=== PATIENT | male | born 1995 | race Two or more races ===

== ENCOUNTER → 2020-09-23 07:39 | Outpatient (BNVA) | payer OTHER, SELFPAY | PROVIDERS: PCP Internal Medicine; Visit Provider Nurse Practitioner Gerontology | DX: E10.65 Type 1 diabetes mellitus with hyperglycemia (principal) | CPT/HCPCS: 82947; 99212 ==

== ENCOUNTER 2020-11-23 15:33 | Inpatient (IN) | payer OTHER, SELFPAY ==
--- NOTE | ~2020-11-23 | US_ITS ---
EXAMINATION: US ABDOMEN COMPLETE CLINICAL INFORMATION: Severe transaminitis. COMPARISON: None. TECHNIQUE: Real-time imaging of the abdominal viscera. FINDINGS: PANCREAS: The pancreas is partially obscured. ABDOMINAL AORTA: The proximal, mid, and distal segments are normal in caliber. INFERIOR VENA CAVA: Visualized portions are normal. LIVER: The liver is normal in size. The liver contour is normal. Parenchymal echogenicity is normal. There is a hyperechoic lesion in the right hepatic lobe adjacent to the kidney measuring 1.1 x 1.3 x 1.2 cm, most likely hemangioma. No additional lesions seen. There is no intrahepatic biliary duct dilatation seen. GALLBLADDER: Normal. The gallbladder is physiologically distended without evidence of stones, sludge, polyps, wall thickening or pericholecystic fluid. COMMON BILE DUCT: Normal in caliber measuring 0.3 cm in diameter. RIGHT KIDNEY: Normal. No hydronephrosis. No renal calculi or focal parenchymal lesions. The kidney measures 11.6 cm in maximum dimension. LEFT KIDNEY: Normal. No hydronephrosis. No renal calculi or focal parenchymal lesions. The kidney measures 11.8 cm in maximum dimension. SPLEEN: Normal. The spleen measures 12.1 cm in maximum dimension. FREE FLUID: None. US/US abdomen complete IMPRESSION: Right hepatic lobe hemangioma posterior segment. The rest of the abdominal ultrasound is unremarkable.
--- NOTE | ~2020-11-23 | CT_ITS ---
EXAMINATION: CT CHEST, ABDOMEN AND PELVIS WITHOUT CONTRAST CLINICAL INFORMATION: Reason for Exam sob COMPARISON: No pertinent prior studies are available for comparison. TECHNIQUE: Multidetector volumetric imaging was performed from the thoracic inlet through the pubic symphysis without IV contrast. Sagittal and coronal reformatted images were obtained on the technologist's workstation. This CT examination was performed using dose optimization techniques as appropriate, variously including the following: *Automated exposure control *Adjustment of mA and/or kV according to patient size (this includes techniques or standardized protocols for targeted exams where dose is matched to indication/reason for exam; i.e. extremities or head) *Use of iterative reconstruction technique DLP: 637 mGy-cm FINDINGS: CHEST: Lung: The lungs are clear without focal opacity or nodule. Mediastinum: The mediastinum is normal. The central vascular structures are unremarkable. No hilar or mediastinal lymphadenopathy. A small normal sized right anterior preparacardiac lymph node is present. Pericardium/Pleura: No significant effusion. No pleural mass or thickening. Chest Wall/Axilla: Unremarkable ABDOMEN/PELVIS: Peritoneal Space: No significant free air or free fluid identified. Liver, Gallbladder, Biliary Tree: The liver is mildly enlarged measuring 19.7 cm in greatest length normal shape and attenuation. No focal hepatic lesion or biliary ductal dilatation is present. The gallbladder is unremarkable with no evidence of radiopaque gallstones, gallbladder wall thickening, or obvious pericholecystic inflammatory changes. Pancreas: Unremarkable Spleen: Unremarkable Adrenal Glands: Unremarkable Kidneys and Ureters: The kidneys are normal in size, shape, and attenuation. No hydronephrosis, hydroureter, or calculi seen. No perinephric stranding. Bladder: Empty and not well evaluated Gastrointestinal Tract: The small and large bowel are unremarkable. The appendix is unremarkable. Abdominal Wall: No significant hernia is appreciated. Lymph Nodes: No lymphadenopathy. Vascular: The aorta appears normal.. The IVC appears unremarkable. PELVIC VISCERA: Unremarkable OSSEUS STRUCTURES: Unremarkable. No bony destructive lesions are seen. CT/CT abdomen pelvis wo con IMPRESSION: Mild hepatomegaly is present with the liver measuring 19.7 cm in greatest AP dimension but no other significant abnormality is seen
[2020-11-23 17:38] VITALS: BP 137/80; PULSE 103; RESP 16; TEMP 38.4; O2SAT 99; BMI 24.4
[2020-11-23 17:48] LABS: Glucose, Whole Blood 125 mg/dL (60-115)
--- NOTE | 2020-11-23 18:45 | ED.GENADULT ---
HPI - General Adult General Chief complaint: General Medical Stated complaint: abnormal labs Time Seen by Provider: 11/23/20 18:10 Source: patient Mode of arrival: ambulatory Limitations: no limitations History of Present Illness HPI narrative: 25-year-old male with past medical history of diabetes type 1 with insulin pump, and asthma presents from [facility] for abnormal lab values. Patient reports that his ketone levels are high, and that his urine is brown. He has been sick for approximately a week with fevers, chills, cough, shortness breath, abdominal pain, has been tested negative for COVID-19 twice, saw his primary care physician twice and presented to [facility] today because of severe muscle pain and jaundice skin. He does not drink alcohol, does not use illicit drugs, and states that he has been using Tylenol 1000 mg approximately 6 times a day for the past week. At this time he reports headache, weakness, chest pressure, cough, right upper quadrant pain, muscle aches, fevers, and fatigue. He denies palpitations, edema, dysuria, hematuria, diarrhea, constipation, hematochezia, melena, blood borne pathogen exposure, loss of balance, or altered mental status. Onset (ago): week(s) (1) Location: head, chest and abdomen Severity: severe Severity scale (1-10): 9 Quality: aching and constant Pain Consistency: constant Relieving factors: none Exacerbating factors: movement Associated symptoms: chest pain, cough, diaphoresis, fever/chills, headaches, loss of appetite, malaise, nausea/vomiting and other (jaundice) Treatments prior to arrival: other (Acetaminophen, [facility]) Related Data Home Medications Medication Instructions Recorded Confirmed insulin lispro [Humalog U-100 160 unit SUBCUT DAILY 11/23/20 11/23/20 Insulin] Previous Rx's Medication Instructions Recorded blood-glucose sensor #3 ea 09/17/20 Allergies Allergy/AdvReac Type Severity Reaction Status Date / Time No Known Allergies Allergy Verified 09/23/20 08:06 [No Known Allergies*] Review of Systems Constitutional: Comments: Constitutional: positive Fever, positive Chills, positive fatigue, positive Malaise ENT/Mouth: No sore throat, positive runny nose Eyes: Positive scleral icterus, No Discharge, no eye pain Cardiovascular: Positive Chest Pain, positive SOB Respiratory: Positive Cough, No Sputum, positive Wheezing, No Smoke Exposure, No Dyspnea Gastrointestinal: No Nausea, No Vomiting, No Diarrhea Genitourinary: Positive dark colored urine, no irregular bleeding, No Dysuria, No Urinary Frequency, No Hematuria, No Urinary Incontinence, No Urgency, No Flank Pain, Musculoskeletal: positive Myalgia Skin: Positive jaundice, No rash Neuro: Positive Headache [facility] Past Medical History Attestation statement: The following information was validated with the patient. Source: old records reviewed Medical History Asthma Diabetes mellitus type 1, uncontrolled Surgical History No history of previous surgery Family History Family History Father Seizures Hypertension Diabetes CVD (cardiovascular disease) Mother Breast cancer Social History Social History Household Members: None Housing: Apartment Smoking Status: Never smoker Use of substances other than those prescribed or required for medical reasons: Yes Substance Use Type: Marijuana Substance Use Frequency: Occasionally Advance Directives: No Advance Directives Information Provided: Yes Physical Exam Vital Signs: Vital Signs: Last Vital Signs Temp 99.6 F 11/23/20 19:43 Pulse 117 H 11/23/20 21:32 Resp 14 11/23/20 21:32 BP 120/72 11/23/20 21:32 Pulse Ox 99 11/23/20 21:32 Body Mass Index 24.4 Appearance: Alert. Oriented X3. No acute distress. Head: Normal external exam. Normocephalic. Atraumatic. No Muñoz signs noted. No raccoon eyes noted Eyes: PERRLA. EOMI. Conjunctiva and sclera normal. Eyelids normal. ENT: TM's Normal. Pharynx normal. Uvula midline. Moist mucous membranes. No trismus noted. No drooling noted. No muffled voice noted. Neck: Normal inspection. Neck supple. No adenopathy. Thyroid Normal. No meningeal signs. No neck mass noted. CVS: Normal heart rate and rhythm. Heart sound normal. No murmurs noted. Pulses equal to all extremities. Respiratory: No respiratory distress. Painless inspiration. Breath sounds normal. No wheezes/rales/rhonchi noted. Chest nontender. No accessory muscle usage noted or decreased air movement noted. Abdomen: Soft and nontender. Bowel sounds normal in all 4 quadrants. No distention noted. No organomegaly noted. No visible injury noted. Back: No CVA tenderness. Full range of motion noted. Skin: Skin warm and dry. Normal skin color. Normal skin turgor. No rashes/lesions/lacerations noted. Extremities: No lower extremity edema. Extremities exhibit normal range of motion. Extremities nontender. Neuro: cranial nerves 2-12 intact, no focal neural deficits, strength 5/5 to all extremities, No motor deficit. No sensory deficit. Reflexes normal. Course Course Course Narrative: 25-year-old male with past medical history of diabetes type 1 with insulin pump, and asthma presents from [place] for abnormal lab values. Patient is jaundice, states to have been using an excessive amount of Tylenol for the past week, approximately 1 g every 4 hours every day since Tuesday. Highly concerning for liver failure, will order CBC, Chem 7, urinalysis, LFTs, COVID, order CT scan of the abdomen pelvis and chest. 7:[address] scan indicates hepatomegaly without any other acute findings. Labs still pending draw. Labs drawn at 7:49 p.m. 9:00 p.m. it is noted that patient has elevated white blood count at 18.9, urine positive for nitrites, will start sepsis protocol at this time. Patient has been resuscitated with 1 L of fluid, 2nd L of fluid ordered. To make 1860 mL of fluid at 30 milliliters/kilogram. Will order ceftriaxone for UTI. CT scan of the abdomen pelvis shows hepatitis. Will add on hepatitis panel at this time. Will discuss case with hospitalist. 9:08 p.m. discussion with hospitalist, plan of care is to admit for hepatitis and UTI. Plan discussed with patient he agrees with plan of care. Consultations Consultation #1: Berny Time: 21:08 Medical Decision Making MDM Narrative Medical decision making narrative: Tylenol toxicity, DKA, rhabdomyolysis Differential Diagnosis Differential Diagnosis: Influenza, hepatitis, COVID-19, cholecystitis, pancreatitis Medical Records Medical records reviewed: Yes I reviewed the patient's medical records. Lab Data Lab results reviewed: Yes I reviewed the patient's lab results. Result diagrams: 11/23/20:38 11/23/20 19:38 Labs: Lab Results 11/23/20 11/23/20 11/23/20 Range/Units 17:39 19:38 19:38 WBC 18.9 H (4.8-10.8) X10*3/uL RBC 4.64 (4.60-5.80) X10*6/uL Hgb 13.7 L (14.0-18.0) g/dl Hct 39.2 L (42-52) % MCV 84.5 (80-98) fL MCH 29.5 (27.0-33.0) pg MCHC 34.9 (31.0-36.0) g/dl RDW 12.6 (11.0-16.0) % Plt Count 205 (160-400) X10*3/uL MPV 11.2 (9.4-12.4) fL Immature Gran % (Auto) Cancelled Neut % (Auto) Cancelled Lymph % (Auto) Cancelled Mifflin % (Auto) Cancelled Eos % (Auto) Cancelled Baso % (Auto) Cancelled Lymph # (Auto) Cancelled Mifflin # (Auto) Cancelled Eos # (Auto) Cancelled Baso # (Auto) Cancelled Abs Immat Gran (auto) Cancelled Absolute Neuts (auto) Cancelled Absolute Nucleated RBC 0.000 (0.0-0.012) X10*3/uL Nucleated RBC % (auto) 0.0 (0.0-0.2) /100WBC Neutrophils % (Manual) 12 L (45-73) % Band Neutrophils % 7 H (3-5) % Lymphocytes % (Manual) 19 L (20-40) % Atypical Lymphs % (Man) 45 H (0-6) % Monocytes % (Manual) 15 H (2-11) % Basophils % (Manual) 2 H (0-1) % Abs Neuts (Manual) 3.6 (2.2-7.9) X10*3/uL Lymphocytes # (Manual) 3.6 (0.6-4.8) X10*3/uL Atyp Lymphs # (Manual) 8.5 x10*3/uL Monocytes # (Manual) 2.8 H (0.0-1.2) X10*3/uL Basophils # (Manual) 0.4 H (0.0-0.3) X10*3/uL Smudge Cells PRESENT Platelet Estimate NORMAL (NORMAL) Plt Morphology Comment NORMAL RBC Morphology NOTED Macrocytosis 1+ PT 12.5 (10.8-13.0) SEC INR 1.1 (0.9-1.1) APTT 39.4 H (24.1-38.0) SEC Sodium (135-145) mmol/L Potassium (3.3-5.1) mmol/L Chloride (96-108) mmol/L Carbon Dioxide (22-29) mmol/L Anion Gap (12-20) BUN (9-16) mg/dL Creatinine (0.5-1.4) mg/dL Estim Creat Clear Calc Estimated GFR POC Glucose 125 H (60-115) mg/dL Random Glucose (60-115) mg/dL Lactic Acid (0.5-2.0) mmol/L Calcium (8.4-10.2) mg/dL Ferritin (20-250) ng/mL Total Bilirubin (0.0-1.0) mg/dL Direct Bilirubin (0.0-0.5) mg/dL AST (5-37) U/L ALT (0-40) U/L Alkaline Phosphatase (39-117) U/L Ammonia (13-55) umol/L Lactate Dehydrogenase (118-273) U/L Total Creatine Kinase (38-174) U/L C-Reactive Protein (< or = 0.50) mg/dL Total Protein (6.5-8.0) g/dL Albumin (3.5-5.0) g/dL Lipase (8-78) U/L Procalcitonin ng/mL Urine Color Urine Appearance Urine pH (5.0-8.0) Ur Specific Aurora (1.005-1.025) Urine Protein (NEG-TRACE) MG/DL Urine Glucose (UA) (NEG) MG/DL Urine Ketones (NEG) MG/DL Urine Blood (NEG) Urine Nitrite (NEG) Ur Leukocyte Esterase (NEG) Urine RBC (0) /HPF Urine WBC (0-4) /HPF Ur Squamous Epith Cells /LPF Urine Bacteria /LPF Acetaminophen (<30) mcg/mL Acetone, Qual (Negative) Coronavirus (PCR) (Negative) Influenza Type A (PCR) (Negative) Influenza Type B (PCR) (Negative) RSV RNA Qual (PCR) (Negative) 11/23/20 11/23/20 11/23/20 Range/Units 19:38 19:38 19:38 WBC (4.8-10.8) X10*3/uL RBC (4.60-5.80) X10*6/uL Hgb (14.0-18.0) g/dl Hct (42-52) % MCV (80-98) fL MCH (27.0-33.0) pg MCHC (31.0-36.0) g/dl RDW (11.0-16.0) % Plt Count (160-400) X10*3/uL MPV (9.4-12.4) fL Immature Gran % (Auto) Neut % (Auto) Lymph % (Auto) Mifflin % (Auto) Eos % (Auto) Baso % (Auto) Lymph # (Auto) Mifflin # (Auto) Eos # (Auto) Baso # (Auto) Abs Immat Gran (auto) Absolute Neuts (auto) Absolute Nucleated RBC (0.0-0.012) X10*3/uL Nucleated RBC % (auto) (0.0-0.2) /100WBC Neutrophils % (Manual) (45-73) % Band Neutrophils % (3-5) % Lymphocytes % (Manual) (20-40) % Atypical Lymphs % (Man) (0-6) % Monocytes % (Manual) (2-11) % Basophils % (Manual) (0-1) % Abs Neuts (Manual) (2.2-7.9) X10*3/uL Lymphocytes # (Manual) (0.6-4.8) X10*3/uL Atyp Lymphs # (Manual) x10*3/uL Monocytes # (Manual) (0.0-1.2) X10*3/uL Basophils # (Manual) (0.0-0.3) X10*3/uL Smudge Cells Platelet Estimate (NORMAL) Plt Morphology Comment RBC Morphology Macrocytosis PT (10.8-13.0) SEC INR (0.9-1.1) APTT (24.1-38.0) SEC Sodium 134 L (135-145) mmol/L Potassium 4.5 (3.3-5.1) mmol/L Chloride 95 L (96-108) mmol/L Carbon Dioxide 27 (22-29) mmol/L Anion Gap 17 (12-20) BUN 8 L (9-16) mg/dL Creatinine 0.88 (0.5-1.4) mg/dL Estim Creat Clear Calc 104.1 Estimated GFR > 60 POC Glucose (60-115) mg/dL Random Glucose 126 H (60-115) mg/dL Lactic Acid 1.4 (0.5-2.0) mmol/L Calcium 8.8 (8.4-10.2) mg/dL Ferritin 5145 H (20-250) ng/mL Total Bilirubin 7.9 H (0.0-1.0) mg/dL Direct Bilirubin 4.8 H (0.0-0.5) mg/dL AST 597 H (5-37) U/L ALT 805 H (0-40) U/L Alkaline Phosphatase 401 H (39-117) U/L Ammonia (13-55) umol/L Lactate Dehydrogenase 1459 H (118-273) U/L Total Creatine Kinase 67 (38-174) U/L C-Reactive Protein 2.75 H (< or = 0.50) mg/dL Total Protein 7.6 (6.5-8.0) g/dL Albumin 4.0 (3.5-5.0) g/dL Lipase 10 (8-78) U/L Procalcitonin ng/mL Urine Color Urine Appearance Urine pH (5.0-8.0) Ur Specific Aurora (1.005-1.025) Urine Protein (NEG-TRACE) MG/DL Urine Glucose (UA) (NEG) MG/DL Urine Ketones (NEG) MG/DL Urine Blood (NEG) Urine Nitrite (NEG) Ur Leukocyte Esterase (NEG) Urine RBC (0) /HPF Urine WBC (0-4) /HPF Ur Squamous Epith Cells /LPF Urine Bacteria /LPF Acetaminophen < 1 (<30) mcg/mL Acetone, Qual Negative (Negative) Coronavirus (PCR) (Negative) Influenza Type A (PCR) (Negative) Influenza Type B (PCR) (Negative) RSV RNA Qual (PCR) (Negative) 11/23/20 11/23/20 11/23/20 Range/Units 19:38 19:38 19:38 WBC (4.8-10.8) X10*3/uL RBC (4.60-5.80) X10*6/uL Hgb (14.0-18.0) g/dl Hct (42-52) % MCV (80-98) fL MCH (27.0-33.0) pg MCHC (31.0-36.0) g/dl RDW (11.0-16.0) % Plt Count (160-400) X10*3/uL MPV (9.4-12.4) fL Immature Gran % (Auto) Neut % (Auto) Lymph % (Auto) Mifflin % (Auto) Eos % (Auto) Baso % (Auto) Lymph # (Auto) Mifflin # (Auto) Eos # (Auto) Baso # (Auto) Abs Immat Gran (auto) Absolute Neuts (auto) Absolute Nucleated RBC (0.0-0.012) X10*3/uL Nucleated RBC % (auto) (0.0-0.2) /100WBC Neutrophils % (Manual) (45-73) % Band Neutrophils % (3-5) % Lymphocytes % (Manual) (20-40) % Atypical Lymphs % (Man) (0-6) % Monocytes % (Manual) (2-11) % Basophils % (Manual) (0-1) % Abs Neuts (Manual) (2.2-7.9) X10*3/uL Lymphocytes # (Manual) (0.6-4.8) X10*3/uL Atyp Lymphs # (Manual) x10*3/uL Monocytes # (Manual) (0.0-1.2) X10*3/uL Basophils # (Manual) (0.0-0.3) X10*3/uL Smudge Cells Platelet Estimate (NORMAL) Plt Morphology Comment RBC Morphology Macrocytosis PT (10.8-13.0) SEC INR (0.9-1.1) APTT (24.1-38.0) SEC Sodium (135-145) mmol/L Potassium (3.3-5.1) mmol/L Chloride (96-108) mmol/L Carbon Dioxide (22-29) mmol/L Anion Gap (12-20) BUN (9-16) mg/dL Creatinine (0.5-1.4) mg/dL Estim Creat Clear Calc Estimated GFR POC Glucose (60-115) mg/dL Random Glucose (60-115) mg/dL Lactic Acid (0.5-2.0) mmol/L Calcium (8.4-10.2) mg/dL Ferritin (20-250) ng/mL Total Bilirubin (0.0-1.0) mg/dL Direct Bilirubin (0.0-0.5) mg/dL AST (5-37) U/L ALT (0-40) U/L Alkaline Phosphatase (39-117) U/L Ammonia 39 (13-55) umol/L Lactate Dehydrogenase (118-273) U/L Total Creatine Kinase (38-174) U/L C-Reactive Protein (< or = 0.50) mg/dL Total Protein (6.5-8.0) g/dL Albumin (3.5-5.0) g/dL Lipase (8-78) U/L Procalcitonin 0.37 ng/mL Urine Color Urine Appearance Urine pH (5.0-8.0) Ur Specific [place] (1.005-1.025) Urine Protein (NEG-TRACE) MG/DL Urine Glucose (UA) (NEG) MG/DL Urine Ketones (NEG) MG/DL Urine Blood (NEG) Urine Nitrite (NEG) Ur Leukocyte Esterase (NEG) Urine RBC (0) /HPF Urine WBC (0-4) /HPF Ur Squamous Epith Cells /LPF Urine Bacteria /LPF Acetaminophen (<30) mcg/mL Acetone, Qual (Negative) Coronavirus (PCR) NEGATIVE (Negative) Influenza Type A (PCR) NEGATIVE (Negative) Influenza Type B (PCR) NEGATIVE (Negative) RSV RNA Qual (PCR) NEGATIVE (Negative) 11/23/20 11/23/20 Range/Units 19:38 19:42 WBC (4.8-10.8) X10*3/uL RBC (4.60-5.80) X10*6/uL Hgb (14.0-18.0) g/dl Hct (42-52) % MCV (80-98) fL MCH (27.0-33.0) pg MCHC (31.0-36.0) g/dl RDW (11.0-16.0) % Plt Count (160-400) X10*3/uL MPV (9.4-12.4) fL Immature Gran % (Auto) Neut % (Auto) Lymph % (Auto) Mifflin % (Auto) Eos % (Auto) Baso % (Auto) Lymph # (Auto) Mifflin # (Auto) Eos # (Auto) Baso # (Auto) Abs Immat Gran (auto) Absolute Neuts (auto) Absolute Nucleated RBC (0.0-0.012) X10*3/uL Nucleated RBC % (auto) (0.0-0.2) /100WBC Neutrophils % (Manual) (45-73) % Band Neutrophils % (3-5) % Lymphocytes % (Manual) (20-40) % Atypical Lymphs % (Man) (0-6) % Monocytes % (Manual) (2-11) % Basophils % (Manual) (0-1) % Abs Neuts (Manual) (2.2-7.9) X10*3/uL Lymphocytes # (Manual) (0.6-4.8) X10*3/uL Atyp Lymphs # (Manual) x10*3/uL Monocytes # (Manual) (0.0-1.2) X10*3/uL Basophils # (Manual) (0.0-0.3) X10*3/uL Smudge Cells Platelet Estimate (NORMAL) Plt Morphology Comment RBC Morphology Macrocytosis PT (10.8-13.0) SEC INR (0.9-1.1) APTT (24.1-38.0) SEC Sodium (135-145) mmol/L Potassium (3.3-5.1) mmol/L Chloride (96-108) mmol/L Carbon Dioxide (22-29) mmol/L Anion Gap (12-20) BUN (9-16) mg/dL Creatinine (0.5-1.4) mg/dL Estim Creat Clear Calc Estimated GFR POC Glucose 122 H (60-115) mg/dL Random Glucose (60-115) mg/dL Lactic Acid (0.5-2.0) mmol/L Calcium (8.4-10.2) mg/dL Ferritin (20-250) ng/mL Total Bilirubin (0.0-1.0) mg/dL Direct Bilirubin (0.0-0.5) mg/dL AST (5-37) U/L ALT (0-40) U/L Alkaline Phosphatase (39-117) U/L Ammonia (13-55) umol/L Lactate Dehydrogenase (118-273) U/L Total Creatine Kinase (38-174) U/L C-Reactive Protein (< or = 0.50) mg/dL Total Protein (6.5-8.0) g/dL Albumin (3.5-5.0) g/dL Lipase (8-78) U/L Procalcitonin ng/mL Urine Color JOE Urine Appearance CLEAR Urine pH 5.5 (5.0-8.0) Ur Specific [place] 1.020 (1.005-1.025) Urine Protein 1+ H (NEG-TRACE) MG/DL Urine Glucose (UA) 500 H (NEG) MG/DL Urine Ketones 15 (NEG) MG/DL Urine Blood 1+ H (NEG) Urine Nitrite POS H (NEG) Ur Leukocyte Esterase NEG (NEG) Urine RBC 0-2 (0) /HPF Urine WBC 0 (0-4) /HPF Ur Squamous Epith Cells NONE /LPF Urine Bacteria TRACE /LPF Acetaminophen (<30) mcg/mL Acetone, Qual (Negative) Coronavirus (PCR) (Negative) Influenza Type A (PCR) (Negative) Influenza Type B (PCR) (Negative) RSV RNA Qual (PCR) (Negative) Imaging Data CT chest and abdomen pelvis: Attestation: I personally reviewed and interpreted this imaging study as follows: Radiologist's impression: EXAMINATION: CT CHEST, ABDOMEN AND PELVIS WITHOUT CONTRAST CLINICAL INFORMATION: Reason for Exam sob COMPARISON: No pertinent prior studies are available for comparison. TECHNIQUE: Multidetector volumetric imaging was performed from the thoracic inlet through the pubic symphysis without IV contrast. Sagittal and coronal reformatted images were obtained on the technologist's workstation. This CT examination was performed using dose optimization techniques as appropriate, variously including the following: *Automated exposure control *Adjustment of mA and/or kV according to patient size (this includes techniques or standardized protocols for targeted exams where dose is matched to indication/reason for exam; i.e. extremities or head) *Use of iterative reconstruction technique DLP: 637 mGy-cm FINDINGS: CHEST: Lung: The lungs are clear without focal opacity or nodule. Mediastinum: The mediastinum is normal. The central vascular structures are unremarkable. No hilar or mediastinal lymphadenopathy. A small normal sized right anterior preparacardiac lymph node is present. Pericardium/Pleura: No significant effusion. No pleural mass or thickening. Chest Wall/Axilla: Unremarkable ABDOMEN/PELVIS: Peritoneal Space: No significant free air or free fluid identified. Liver, Gallbladder, Biliary Tree: The liver is mildly enlarged measuring 19.7 cm in greatest length normal shape and attenuation. No focal hepatic lesion or biliary ductal dilatation is present. The gallbladder is unremarkable with no evidence of radiopaque gallstones, gallbladder wall thickening, or obvious pericholecystic inflammatory changes. Pancreas: Unremarkable Spleen: Unremarkable Adrenal Glands: Unremarkable Kidneys and Ureters: The kidneys are normal in size, shape, and attenuation. No hydronephrosis, hydroureter, or calculi seen. No perinephric stranding. Bladder: Empty and not well evaluated Gastrointestinal Tract: The small and large bowel are unremarkable. The appendix is unremarkable. Abdominal Wall: No significant hernia is appreciated. Lymph Nodes: No lymphadenopathy. Vascular: The aorta appears normal.. The IVC appears unremarkable. PELVIC VISCERA: Unremarkable OSSEUS STRUCTURES: Unremarkable. No bony destructive lesions are seen. CT/CT abdomen pelvis wo con IMPRESSION: Mild hepatomegaly is present with the liver measuring 19.7 cm in greatest AP dimension but no other significant abnormality is seen Critical Care Time Critical Care Time Critical Care Time: Yes Total Critical Care Time: 65 Attestation: I have personally provided critical care time exclusive of time spent on separately billable procedures. Time includes review of laboratory data, radiology results, discussion with consultants, and monitoring for potential decompensation. Interventions were performed as documented. Discharge Plan Discharge Clinical Impression: Hepatitis, Acute UTI, Sepsis Patient Disposition: Admitted As Inpatient
[2020-11-23] MEDS: 0.9 % Sodium Chloride 1,000 ML 999 ML IVCONT ×2 (19:15→21:31)
[2020-11-23 19:43] VITALS: BP 117/66; PULSE 96; RESP 24; TEMP 37.6; O2SAT 99
[2020-11-23 19:58] LABS: Glucose, Whole Blood 122 mg/dL (60-115)
[2020-11-23 20:04] LABS: INTERNATIONAL NORM RATIO 1.1 (0.9-1.1); Prothrombin Time 12.5 SEC (10.8-13.0)
[2020-11-23 20:07] LABS: Partial Thromboplastin Time 39.4 SEC (24.1-38.0)
[2020-11-23 20:09] LABS: Glucose Urine UA 500 MG/DL (NEG); Leukocyte Esterase Urine NEG (NEG); Nitrite Urine POS (NEG); PH 5.5 (5.0-8.0); UACC Culture Trigger YES; Urine Blood 1+ (NEG); Urine Ketones 15 MG/DL (NEG); Urine Protein 1+ MG/DL (NEG-TRACE)
[2020-11-23 20:10] LABS: Appearance Urine CLEAR; Color Urine AMBER
[2020-11-23 20:14] LABS: Ammonia 39 umol/L (13-55)
[2020-11-23 20:17] LABS: Bacteria Urine TRACE /LPF; RBC Urine 0-2 /HPF (0); WBC Urine 0 /HPF (0-4)
[2020-11-23 20:18] LABS: Lactic Acid 1.4 mmol/L (0.5-2.0)
[2020-11-23 20:20] LABS: Hematocrit 39.2 % (42-52); Hemoglobin 13.7 g/dl (14.0-18.0); Mean Corpuscular HGB Conc 34.9 g/dl (31.0-36.0); Mean Corpuscular Hemoglobin 29.5 pg (27.0-33.0); Mean Corpuscular Volume 84.5 fL (80-98); Mean Platelet Volume 11.2 fL (9.4-12.4); Platelet Count 205 X10*3/uL (160-400); Red Blood Count 4.64 X10*6/uL (4.60-5.80); Red Cell Distribution Width 12.6 % (11.0-16.0)
[2020-11-23 20:22] LABS: Acetaminophen LAB < 1 mcg/mL (<30); Alanine Aminotransferase 805 U/L (0-40); Alkaline Phosphatase 401 U/L (39-117); Anion Gap 17 (12-20); Aspartate Amino Transferase 597 U/L (5-37); Bilirubin Direct 4.8 mg/dL (0.0-0.5); Bilirubin Total 7.9 mg/dL (0.0-1.0); Blood Urea Nitrogen 8 mg/dL (9-16); C Reactive Protein 2.75 mg/dL (< or = 0.50); Calcium 8.8 mg/dL (8.4-10.2); Carbon Dioxide 27 mmol/L (22-29); Chloride 95 mmol/L (96-108); Creatinine Clr Calc Pharmacy 104.1; Estimated Glomerular Filt Rate > 60; Glucose Random 126 mg/dL (60-115); Lactate Dehydrogenase 1459 U/L (118-273); Lipase 10 U/L (8-78); Potassium 4.5 mmol/L (3.3-5.1); Sodium 134 mmol/L (135-145); Total Protein 7.6 g/dL (6.5-8.0)
[2020-11-23 20:25] LABS: WBC ABN SCTR FOR CBC 1
[2020-11-23 20:29] LABS: Acetone, serum QL Negative (Negative)
[2020-11-23 20:42] LABS: Procalcitonin 0.37 ng/mL
[2020-11-23 20:43] LABS: Influenza A PCR NEGATIVE (Negative); Influenza B PCR NEGATIVE (Negative); Resp Syncy Virus RNA Qual PCR NEGATIVE (Negative); SARS COV2 PCR INHOUSE NEGATIVE (Negative)
[2020-11-23 20:49] LABS: White Blood Count 18.9 X10*3/uL (4.8-10.8)
[2020-11-23 21:16] LABS: Atypical Lymph Absolute Manual 8.5 x10*3/uL; Atypical Lymphs Percent Manual 45 % (0-6); Band Neutrophils Percent 7 % (3-5); Basophils Abs Manual 0.4 X10*3/uL (0.0-0.3); Basophils Percent Manual 2 % (0-1); Lymphocytes Absolute Manual 3.6 X10*3/uL (0.6-4.8); Lymphocytes Percent Manual 19 % (20-40); Macrocytosis 1+; Monocytes Absolute Manual 2.8 X10*3/uL (0.0-1.2); Monocytes Percent Manual 15 % (2-11); Neutrophils Absolute Manual 3.6 X10*3/uL (2.2-7.9); Neutrophils Percent Manual 12 % (45-73); Platelet Estimate NORMAL (NORMAL); Platelet Morphology Comment NORMAL; RBC Morphology NOTED
[2020-11-23 21:18] LABS: Smudge Cells PRESENT
[2020-11-23] MEDS: Ketorolac Tromethamine 30 MG/ML VIAL IVPUSH (21:31)
[2020-11-23] MEDS: Morphine Sulfate 2 MG/ML CARTRIDGE IVPUSH (21:31)
[2020-11-23 21:32] VITALS: BP 120/72; PULSE 117; RESP 14; O2SAT 99
[2020-11-23] MEDS: cefTRIAXone sodium 1 GM in 0.9 % Sodium Chloride 50 ML IV (21:32)
[2020-11-23 21:43] LABS: Ferritin 5145 ng/mL (20-250)
--- NOTE | 2020-11-23 22:12 | P.HPHOSP_ITS ---
History of Present Illness Date of Service: 11/23/20 Chief Complaint: multiple complaints 25-year-old male with past medical history of asthma diabetes type 1 who presents to the hospital with multiple complaints of fever, chills, shortness of breath, cough, jaundice, body aches, low appetite, for the past 1 week. Patient reports that he went to urgent care twice had COVID testing done twice and both tests were negative. He has been having fevers of 101-102, taking Tylenol about 1000 mg every 4-6 hours. He decided to come to the hospital as his symptoms did not resolve. He has nausea with no vomiting, no abdominal pain, no diarrhea or constipation. Reports no sick contacts or recent travel. He has had loss of smell and taste for 3 days but has now returned. He has significant loss of appetite and has not been drinking or eating enough. He has no contact with anybody with COVID. Patient denies any urinary symptoms including no dysuria, frequency or urgency On arrival to the ED patient has a temperature of 101.2?, heart rate of 103, other vitals within normal range Labs are significant for WBC count of 18.9, hemoglobin of 13.7, PT of 12.5, INR of 1.1, PTT of 39.5, sodium of 134, chloride of 95, BUN of 8, creatinine of 0.88, ferritin of 5145, total bili of 7.9, direct bili of 4.8, AST of 597, ALT of 8 of 5, alk phos of 401, ammonia 39, LDH of 1459, CRP of 2.75, lipase of 10, procalcitonin of 0.37, urine that is positive for nitrites, no WBC or leukocyte Estrace, UDS negative, hepatitis panel pending, COVID-19 PCR negative Ab[address] pelvic CT shows mild hepatomegaly with liver measuring 19.7 cm with no other significant abnormality Chest CT is negative for any pathology Past medical history as below comfort with patient Review of Systems Review of Systems: Yes all other systems are reviewed and are negative [facility] Medical History Asthma Diabetes mellitus type 1, uncontrolled Family History Father Seizures Hypertension Diabetes CVD (cardiovascular disease) Mother Breast cancer Surgical History No history of previous surgery Social History Household Members: Family Housing: Apartment Do you presently have visiting nurse or other home services: No Smoking Status: Never smoker Smoked in Last 30 Days: No Patient Interested in Nicotine Replacement: No Use of substances other than those prescribed or required for medical reasons: Yes Substance Use Type: Marijuana Substance Use Frequency: Occasionally Currently Displaying Signs/Symptoms of Drug Intoxication Withdrawal: No Any prior treatment program specific to substance use: No Have you been hit, kicked, punched, or otherwise hurt by someone within the past year? If so, by whom?: No Do you feel safe in your current relationship?: Yes Is there a partner from a previous relationship who is making you feel unsafe now?: No Are you made to feel afraid or neglected: No Advance Directives: No Advance Directives Information Provided: Yes Do you have thoughts of harming others: None Do you have a plan to hurt others: No Plan Recently lost weight without trying: No Meds Allergies Allergy/AdvReac Type Severity Reaction Status Date / Time No Known Allergies Allergy Verified 09/23/20 08:06 [No Known Allergies*] Active Medications: Current Medications Generic Name Dose Route Start Last Admin Trade Name Freq PRN Reason Stop Dose Admin Sodium Chloride 1,000 mls @ 999 mls/hr 11/23/20 21:15 11/23/20 21:31 Ns IVCONT 11/23/20 22:15 999 mls/hr .[id number] LYN Administration Home Medications Medication Instructions Recorded Confirmed Last Taken Type insulin lispro [Humalog U-100 160 unit SUBCUT DAILY 11/23/20 11/23/20 Unknown History Insulin] Physical Exam Vital Signs and Narrative: Vital Signs: Last Vital Signs Temp 99.6 F 11/23/20 19:43 Pulse 117 H 11/23/20 21:32 Resp 14 11/23/20 21:32 BP 120/72 11/23/20 21:32 Pulse Ox 99 11/23/20 21:32 Body Mass Index 24.4 Const: General: cooperative and no acute distress Orientation/consciousness: patient oriented x3 Eyes: Other: Scleral icterus General: appearance normal, both eyes and all related structures Resp: Effort & Inspection: normal respiratory effort and able to speak in complete sentences Cardio: Rate: regular rate Rhythm: regular rhythm GI: Palpation (GI): Soft to palpation Auscultation: normal bowel sounds Skin: General skin exam: no rashes or lesions noted and jaundice Neuro: General: patient oriented x3 Cognition (Neuro): normal cognition Extrem: General: Yes normal to inspection and Yes no pedal edema Results Labs CBC and Chem 7: 11/23/20 19:38 11/23/20 19:38 Labs: Laboratory Results - last 24 hr 11/23/20 11/23/20 11/23/20 17:39 19:38 19:38 MCV 84.5 MCH 29.5 MCHC 34.9 RDW 12.6 Plt Count 205 MPV 11.2 Immature Gran % (Auto) Cancelled Neut % (Auto) Cancelled Lymph % (Auto) Cancelled Mccracken % (Auto) Cancelled Eos % (Auto) Cancelled Baso % (Auto) Cancelled Lymph # (Auto) Cancelled M[place]racken # (Auto) Cancelled Eos # (Auto) Cancelled Baso # (Auto) Cancelled Abs Immat Gran (auto) Cancelled Absolute Neuts (auto) Cancelled Absolute Nucleated RBC 0.000 Nucleated RBC % (auto) 0.0 Neutrophils % (Manual) 12 L Band Neutrophils % 7 H Lymphocytes % (Manual) 19 L Atypical Lymphs % (Man) 45 H Monocytes % (Manual) 15 H Basophils % (Manual) 2 H Abs Neuts (Manual) 3.6 Lymphocytes # (Manual) 3.6 Atyp Lymphs # (Manual) 8.5 Monocytes # (Manual) 2.8 H Basophils # (Manual) 0.4 H Smudge Cells PRESENT Platelet Estimate NORMAL Plt Morphology Comment NORMAL RBC Morphology NOTED Macrocytosis 1+ PT 12.5 INR 1.1 APTT 39.4 H Anion Gap Estim Creat Clear Calc Estimated GFR POC Glucose 125 H Random Glucose Lactic Acid Calcium Ferritin Total Bilirubin Direct Bilirubin AST ALT Alkaline Phosphatase Ammonia Lactate Dehydrogenase Total Creatine Kinase C-Reactive Protein Total Protein Albumin Lipase Procalcitonin Urine Color Urine Appearance Urine pH Ur Specific [place] Urine Protein Urine Glucose (UA) Urine Ketones Urine Blood Urine Nitrite Ur Leukocyte Esterase Urine RBC Urine WBC Ur Squamous Epith Cells Urine Bacteria Acetaminophen Acetone, Qual Coronavirus (PCR) Influenza Type A (PCR) Influenza Type B (PCR) RSV RNA Qual (PCR) 11/23/20 11/23/20 11/23/20 19:38 19:38 19:38 MCV MCH MCHC RDW Plt Count MPV Immature Gran % (Auto) Neut % (Auto) Lymph % (Auto) Mccracken % (Auto) Eos % (Auto) Baso % (Auto) Lymph # (Auto) Mccracken # (Auto) Eos # (Auto) Baso # (Auto) Abs Immat Gran (auto) Absolute Neuts (auto) Absolute Nucleated RBC Nucleated RBC % (auto) Neutrophils % (Manual) Band Neutrophils % Lymphocytes % (Manual) Atypical Lymphs % (Man) Monocytes % (Manual) Basophils % (Manual) Abs Neuts (Manual) Lymphocytes # (Manual) Atyp Lymphs # (Manual) Monocytes # (Manual) Basophils # (Manual) Smudge Cells Platelet Estimate Plt Morphology Comment RBC Morphology Macrocytosis PT INR APTT Anion Gap 17 Estim Creat Clear Calc 104.1 Estimated GFR > 60 POC Glucose Random Glucose 126 H Lactic Acid 1.4 Calcium 8.8 Ferritin 5145 H Total Bilirubin 7.9 H Direct Bilirubin 4.8 H AST 597 H ALT 805 H Alkaline Phosphatase 401 H Ammonia Lactate Dehydrogenase 1459 H Total Creatine Kinase 67 C-Reactive Protein 2.75 H Total Protein 7.6 Albumin 4.0 Lipase 10 Procalcitonin Urine Color Urine Appearance Urine pH Ur Specific [place] Urine Protein Urine Glucose (UA) Urine Ketones Urine Blood Urine Nitrite Ur Leukocyte Esterase Urine RBC Urine WBC Ur Squamous Epith Cells Urine Bacteria Acetaminophen < 1 Acetone, Qual Negative Coronavirus (PCR) Influenza Type A (PCR) Influenza Type B (PCR) RSV RNA Qual (PCR) 11/23/20 11/23/20 11/23/20 19:38 19:38 19:38 MCV MCH MCHC RDW Plt Count MPV Immature Gran % (Auto) Neut % (Auto) Lymph % (Auto) Mccracken % (Auto) Eos % (Auto) Baso % (Auto) Lymph # (Auto) Mccracken # (Auto) Eos # (Auto) Baso # (Auto) Abs Immat Gran (auto) Absolute Neuts (auto) Absolute Nucleated RBC Nucleated RBC % (auto) Neutrophils % (Manual) Band Neutrophils % Lymphocytes % (Manual) Atypical Lymphs % (Man) Monocytes % (Manual) Basophils % (Manual) Abs Neuts (Manual) Lymphocytes # (Manual) Atyp Lymphs # (Manual) Monocytes # (Manual) Basophils # (Manual) Smudge Cells Platelet Estimate Plt Morphology Comment RBC Morphology Macrocytosis PT INR APTT Anion Gap Estim Creat Clear Calc Estimated GFR POC Glucose Random Glucose Lactic Acid Calcium Ferritin Total Bilirubin Direct Bilirubin AST ALT Alkaline Phosphatase Ammonia 39 Lactate Dehydrogenase Total Creatine Kinase C-Reactive Protein Total Protein Albumin Lipase Procalcitonin 0.37 Urine Color Urine Appearance Urine pH Ur Specific [place] Urine Protein Urine Glucose (UA) Urine Ketones Urine Blood Urine Nitrite Ur Leukocyte Esterase Urine RBC Urine WBC Ur Squamous Epith Cells Urine Bacteria Acetaminophen Acetone, Qual Coronavirus (PCR) NEGATIVE Influenza Type A (PCR) NEGATIVE Influenza Type B (PCR) NEGATIVE RSV RNA Qual (PCR) NEGATIVE 11/23/20 11/23/20 19:38 19:42 MCV MCH MCHC RDW Plt Count MPV Immature Gran % (Auto) Neut % (Auto) Lymph % (Auto) M[place]racken % (Auto) Eos % (Auto) Baso % (Auto) Lymph # (Auto) M[place]racken # (Auto) Eos # (Auto) Baso # (Auto) Abs Immat Gran (auto) Absolute Neuts (auto) Absolute Nucleated RBC Nucleated RBC % (auto) Neutrophils % (Manual) Band Neutrophils % Lymphocytes % (Manual) Atypical Lymphs % (Man) Monocytes % (Manual) Basophils % (Manual) Abs Neuts (Manual) Lymphocytes # (Manual) Atyp Lymphs # (Manual) Monocytes # (Manual) Basophils # (Manual) Smudge Cells Platelet Estimate Plt Morphology Comment RBC Morphology Macrocytosis PT INR APTT Anion Gap Estim Creat Clear Calc Estimated GFR POC Glucose 122 H Random Glucose Lactic Acid Calcium Ferritin Total Bilirubin Direct Bilirubin AST ALT Alkaline Phosphatase Ammonia Lactate Dehydrogenase Total Creatine Kinase C-Reactive Protein Total Protein Albumin Lipase Procalcitonin Urine Color JOE Urine Appearance CLEAR Urine pH 5.5 Ur Specific [place] 1.020 Urine Protein 1+ H Urine Glucose (UA) 500 H Urine Ketones 15 Urine Blood 1+ H Urine Nitrite POS H Ur Leukocyte Esterase NEG Urine RBC 0-2 Urine WBC 0 Ur Squamous Epith Cells NONE Urine Bacteria TRACE Acetaminophen Acetone, Qual Coronavirus (PCR) Influenza Type A (PCR) Influenza Type B (PCR) RSV RNA Qual (PCR) Imaging Radiologist's Impressions: Impressions Abdomen/Pelvis CT 11/23/20 18:18 IMPRESSION: Mild hepatomegaly is present with the liver measuring 19.7 cm in greatest AP dimension but no other significant abnormality is seen Chest CT 11/23/20 18:20 IMPRESSION: Mild hepatomegaly is present with the liver measuring 19.7 cm in greatest AP dimension but no other significant abnormality is seen Assessment and Plan (1) Sepsis: Status: Acute (2) Hepatitis: Status: Acute (3) Acute UTI: Status: Acute (4) Diabetes mellitus type 1, uncontrolled: Status: Acute (5) Jaundice: Status: Acute This is a 25-year-old male with past medical history of diabetes and asthma who presents to the hospital constitution of symptoms found to have transaminitis, elevated bilirubin, and multitude of other lab abnormalities # sepsis - unclear specific etiology, viral versus bacterial secondary to UTI - has no urinary symptoms, - has symptoms of COVID including fever, cough, shortness of breath, loss of a ppetite smell and taste, but his PCRs have been negative x3 - leukocytosis, fever, tachycardia - no hypoxia, CT of the abdomen shows hepatomegaly, CT of the chest negative for any pathology Plan: - will start on ceftriaxone for the UTI - follow blood in urine cultures # acute hepatitis - possibly secondary to excessive Tylenol use versus viral hepatitis versus other etiology - right hepatitis panel pending, Tylenol level negative, will obtain autoimmune markers, will also as serum plasma level although may be negative for elevated given his acute transaminitis - will follow CMP daily # UTI - asymptomatic - given his sepsis will start him on IV antibiotics - follow cultures # diabetes type 1 - patient uses a pump - continue home insulin pump - diabetic diet # asthma - patient denies any wheezing, has no exacerbation of asthma symptoms - albuterol inhaler p.r.n. DVT prophylaxis: Heparin subQ
--- NOTE | 2020-11-23 22:18 | PC.NURSE ---
PT A&OX3, SPEAKING IN CLEAR FULL SENTENCES. SLIGHTLY TACHYPNEIC, DIAPHORETIC ON ARRIVAL, SINUS TACH ON MONITOR. SCLERA AND SKIN COLOUR APPEAR JAUNDICED. HE REPORTS TAKING 1G APAP Q 6 HRS FOR THE PAST WK. #18 IN L AC, #20 IN R AC.
[2020-11-24] VITALS (8 sets, daily range): BP systolic 111–149; BP diastolic 63–81; PULSE 89–110; RESP 18–20; TEMP 35.9–37.4; O2SAT 97–100
[2020-11-24] MEDS: Heparin Sodium,Porcine 5,000 UNIT/ML VIAL 5000 UNIT SUBCUT (01:27)
[2020-11-24 02:30] LABS: Amphetamine Screen Urine Not Detected (Not Detect); Barbiturates, Urine Not Detected (Not Detect); Benzodiazepines Screen Urine Not Detected (Not Detect); Cannabinoid Screen Urine Not Detected (Not Detect); Cocaine Screen Urine Not Detected (Not Detect); Opiate Screen Urine Not Detected (Not Detect); Phencyclidine Screen Urine Not Detected (Not Detect)
[2020-11-24] MEDS: Flu Vacc QS2020-21(6mos up)/PF 0.5 ML SYRINGE IM (06:40)
--- NOTE | 2020-11-24 09:05 | P.CNGI_ITS ---
History of Present Illness Data of Consult Service Date: 11/24/20 Primary Care Provider: Bev Reardon MD HPI Reason for consult: Jaundice 25 YM seen at [facility] yesterday evening with fever, SOB and Jaundice: 25-year-old male with past medical history of diabetes type 1 with insulin pump, and asthma presents from [facility] for abnormal lab values. Patient reports that his ketone levels are high, and that his urine is brown. He has been sick for approximately a week with fevers, chills, cough, shortness breath, abdominal pain, has been tested negative for COVID-19 twice, saw his primary care physician twice and presented to [facility] today because of severe muscle pain and jaundice skin. He does not drink alcohol, does not use illicit drugs, and states that he has been using Tylenol 1000 mg approximately 6 times a day for the past week. At this time he reports headache, weakness, chest pressure, cough, right upper quadrant pain, muscle aches, fevers, and fatigue. He denies palpitations, edema, dysuria, hematuria, diarrhea, constipation, hematochezia, melena, blood borne pathogen exposure, loss of balance, or altered mental status. Onset (ago): week(s) (1) Location: head, chest and abdomen Severity: severe Severity scale (1-10): 9 Quality: aching and constant Pain Consistency: constant Relieving factors: none Exacerbating factors: movement Associated symptoms: chest pain, cough, diaphoresis, fever/chills, headaches, loss of appetite, malaise, nausea/vomiting and other (jaundice) Treatments prior to arrival: other (Acetaminophen, [facility]) Labs showed elevated LFTs with total bilirubin of 7.9, AST 597, ALT 805, alkaline phosphatase [address] SCAN SHOWED: Mild hepatomegaly is present with the liver measuring 19.7 cm in greatest AP dimension but no other significant abnormality is seen Patient was admitted for further management started on IV fluids and antibiotics (ceftriaxone) History obtained from patient and his mom who was at his bedside. Patient reports developing fever, cough, shortness of breath, nausea and decreased appetite since 11/15/20. He was felt to have COVID-19 infection though COVID antibody test was negative Patient denies heartburn, dysphagia, change in bowel habits or rectal bleeding. He denies past history of jaundice or liver disease or known family history of liver disease. Review of Systems Constitutional: Constitutional: Reports difficulty sleeping, Reports fatigue, Reports fever(s), Reports headache(s) and Denies weight loss Eyes: Eyes: Denies eye discharge, Reports dry eyes and Denies irritation ENT: Reports Normal hearing present, Denies dysphagia, Denies dizziness, Reports dry mouth and Reports headache(s) Cardiovascular: Cardiovascular: Reports chest pain, Denies leg edema, Reports dyspnea ( at rest), Reports dyspnea on exertion and Reports other ( palpitations) Respiratory: Respiratory: Denies cough, Reports dyspnea ( at rest) and Reports dyspnea on exertion Gastrointestinal: Gastrointestinal: Reports abdominal pain, Denies change in bowel habits, Denies dysphagia, Denies heartburn, Reports nausea and Reports other (Decreased appetite) Genitourinary: Genitourinary: Denies dysuria Musculoskeletal: Musculoskeletal: Denies back pain and Reports arthralgias ( arthritis) Integumentary/Breasts: Skin/Breast: Denies pruritus, Reports rash, Denies jaundice and Reports other (Alopecia, photosensitivity) Neurologic: Reports Normal hearing present, Denies Abnormal speech present, Denies dizziness, Reports headache(s) and Denies seizure-like activity Psychiatric: Psychiatric: Reports anxiety, Reports depression and Denies panic attacks Endocrine: Endocrine: Denies cold intolerance, Reports fatigue, Denies flushing and Denies heat intolerance PMFSH Past Medical History Medical History Asthma Diabetes mellitus type 1, uncontrolled Family History Family History Father Seizures Hypertension Diabetes CVD (cardiovascular disease) Mother Breast cancer Surgical History Surgical History No history of previous surgery Social History Social History Household Members: Family Housing: Apartment Do you presently have visiting nurse or other home services: No Smoking Status: Never smoker Smoked in Last 30 Days: No Patient Interested in Nicotine Replacement: No Use of substances other than those prescribed or required for medical reasons: Yes Substance Use Type: Marijuana Substance Use Frequency: Occasionally Currently Displaying Signs/Symptoms of Drug Intoxication Withdrawal: No Any prior treatment program specific to substance use: No Have you been hit, kicked, punched, or otherwise hurt by someone within the past year? If so, by whom?: No Do you feel safe in your current relationship?: Yes Is there a partner from a previous relationship who is making you feel unsafe now?: No Are you made to feel afraid or neglected: No Advance Directives: No Advance Directives Information Provided: Yes Do you have thoughts of harming others: None Do you have a plan to hurt others: No Plan Recently lost weight without trying: No service: No Current occupational status: employed Meds Allergies Allergy/AdvReac Type Severity Reaction Status Date / Time No Known Allergies Allergy Verified 09/23/20 08:06 [No Known Allergies*] Active Medications: Current Medications Generic Name Dose Route Start Last Admin Trade Name Freq PRN Reason Stop Dose Admin Albuterol Sulfate 2 puff 11/24/20 05:57 Albuterol Sulfate 90 Mcg 8 Gm Inhaler INHALE RQ4H PRN Shortness of Breath/Wheezing Docusate Sodium 100 mg 11/24/20 00:10 Docusate Sodium 100 Mg Capsule PO DAILY PRN Constipation Ceftriaxone Sodium 1 gm/ 50 mls @ 100 mls/hr 11/24/20 21:00 Sodium Chloride IV Q24H [facility] Insulin Human Lispro 0 unit 11/24/20 11:30 Insulin Lispro 100 Unit/Ml 3 Ml Vial SUBCUT QIDACHS [facility] Protocol Ondansetron HCl 4 mg 11/24/20 00:10 Ondansetron Hcl 4 Mg/2 Ml Vial IVPUSH Q8H PRN Nausea and Vomiting Sodium Chloride 3 ml 11/24/20 00:10 11/24/20 00:35 0.9 % Sodium Chloride Flush 3 Ml [facility] Medications Medication Instructions Recorded Confirmed Last Taken Type insulin lispro [Humalog U-100 160 unit SUBCUT DAILY 11/23/20 11/23/20 Unknown History Insulin] insulin pump cartridge 11/24/20 11/24/20 Unknown History Physical Exam Vital Signs: Vital Signs: Last Vital Signs Temp 96.6 F L 11/24/20 08:00 Pulse 102 H 11/24/20 08:00 Resp 18 11/24/20 08:00 BP 135/69 11/24/20 08:00 Pulse Ox 99 11/24/20 08:00 Body Mass Index 24.4 Const: General: no acute distress and ill appearing Nutritional Appearance: average body habitus Orientation/consciousness: patient oriented x3 Limitations: no limitations HENMT: Head: Yes normal to inspection Ears: hearing grossly normal bilaterally Mouth: Normal oral and palatal mucosa present Eyes: Sclerae: sclerae normal Pupils: Equal, round and reactive pupils present Neck: Neck: Yes normal visual inspection Chest: Chest palpation & inspection: normal inspection of the chest Resp: Effort & Inspection: normal respiratory effort Auscultation: clear to auscultation bilaterally Cardio: Palpation: normal PMI Rate: regular rate Rhythm: regular rhythm Heart sounds: S1 normal heart sound present, S2 normal heart sound present and no murmurs GI: Palpation (GI): Soft to palpation, nontender and No hepatosplenomegaly present Auscultation: normal bowel sounds Rectal Exam - Male: Yes deferred Skin: General skin exam: no rashes or lesions noted Neuro: General: patient oriented x3, gait normal and moves all extremities Cranial nerves: Yes Equal, round and reactive pupils present and Yes Normal hearing present Speech: No Abnormal speech present Psych: Appearance: grossly normal Mental Status: mental status grossly normal Results Labs CBC & Chem 7: 11/25/20 05:48 11/25/20 05:48 Labs: Short CBC 11/23/20 Range/Units 19:38 WBC 18.9 H (4.8-10.8) X10*3/uL Hgb 13.7 L (14.0-18.0) g/dl Hct 39.2 L (42-52) % Plt Count 205 (160-400) X10*3/uL BMP 11/23/20 19:38 Sodium 134 L Potassium 4.5 Chloride 95 L Carbon Dioxide 27 BUN 8 L Creatinine 0.88 Calcium 8.8 Cardiac Enzymes 11/23/20 Range/Units 19:38 Total Creatine Kinase 67 (38-174) U/L Liver Function 11/23/20 Range/Units 19:38 Total Bilirubin 7.9 H (0.0-1.0) mg/dL Direct Bilirubin 4.8 H (0.0-0.5) mg/dL AST 597 H (5-37) U/L ALT 805 H (0-40) U/L Alkaline Phosphatase 401 H (39-117) U/L Albumin 4.0 (3.5-5.0) g/dL Urine 11/23/20 Range/Units 19:38 Urine Color JOE Urine Appearance CLEAR Urine pH 5.5 (5.0-8.0) Ur Specific [place] 1.020 (1.005-1.025) Urine Protein 1+ H (NEG-TRACE) MG/DL Urine Glucose (UA) 500 H (NEG) MG/DL Assessment and Plan (1) Jaundice: Status: Acute (2) Hepatitis: Problem details: Positive Monospot test indicating EBV infection Status: Acute (3) Diabetes mellitus type 1, uncontrolled: Status: Acute (4) Anemia: Status: Resolved 25 YM with Type 1 diabetes mellitus admitted with fever, nausea, cough, shortness of breath for the past week. Labs revealed leukocytosis with the increase in atypical lymphocytes. LFTs were elevated with total bilirubin of 7.9. Repeat LFTs show a decrease in TB to 4.8. LDH is [address] scan showed hepatomegaly. BEV and Hepatitis serologies are pending. Monospot test was positive. Repeat labs show a decrease in H&H from 13.4 and 39.2 to 11.6 and 33.2 today - etiology of anemia is unclear - need to rule out hemolysis which can be seen in EBV infection RECOMMENDATIONS: 1. Repeat LFTs in the am and if continue to improve, pt can be discharged home 2. Repeat LFTs on 11/28/20 3. Check reticulocyte count, haptoglobin, Moustapha test - added to a.m. labs to rule out hemolysis 4. Pt should be advised to avoid sport activities/contact sports due to risk of splenic rupture FROM UP-TO-DATE Avoiding splenic rupture ? All athletes should refrain from sport activities during early illness. As recuperation occurs, clinicians should keep in mind that spontaneous or traumatic splenic rupture in the setting of IM appears to be most likely within 2 to 21 days after the onset of clinical symptoms [130]. Descriptions of splenic rupture after the fourth week are rare [60,131]. Recommendations to resume sports are somewhat arbitrary given the lack of prospective data. Several authors recommend potential resumption of all sport activities, except for strenuous contact sports, no earlier than 21 days after illness onset [132,133]. Others advocate a more universal four-week time frame regardless of activity level [134].
[2020-11-24 09:09] LABS: Partial Thromboplastin Time 38.7 SEC (24.1-38.0)
[2020-11-24 09:28] LABS: Alanine Aminotransferase 646 U/L (0-40); Albumin Level 3.3 g/dL (3.5-5.0); Alkaline Phosphatase 330 U/L (39-117); Anion Gap 12 (12-20); Aspartate Amino Transferase 465 U/L (5-37); Bilirubin Total 4.8 mg/dL (0.0-1.0); Blood Urea Nitrogen 8 mg/dL (9-16); Carbon Dioxide 28 mmol/L (22-29); Chloride 99 mmol/L (96-108); Creatinine Clr Calc Pharmacy 132.8; Estimated Glomerular Filt Rate > 60; Glucose Random 105 mg/dL (60-115); Potassium 4.3 mmol/L (3.3-5.1); Sodium 135 mmol/L (135-145); Total Protein 6.3 g/dL (6.5-8.0)
[2020-11-24 09:30] LABS: Alanine Aminotransferase 645 U/L (0-40); Albumin Level 3.3 g/dL (3.5-5.0); Alkaline Phosphatase 332 U/L (39-117); Anion Gap 12 (12-20); Aspartate Amino Transferase 465 U/L (5-37); Bilirubin Direct 3.5 mg/dL (0.0-0.5); Bilirubin Total 4.8 mg/dL (0.0-1.0); Blood Urea Nitrogen 8 mg/dL (9-16); Carbon Dioxide 28 mmol/L (22-29); Chloride 100 mmol/L (96-108); Creatinine Clr Calc Pharmacy 132.8; Estimated Glomerular Filt Rate > 60; Glucose Random 105 mg/dL (60-115); Hematocrit 33.2 % (42-52); Hemoglobin 11.6 g/dl (14.0-18.0); Mean Corpuscular HGB Conc 34.9 g/dl (31.0-36.0); Mean Corpuscular Hemoglobin 29.9 pg (27.0-33.0); Mean Corpuscular Volume 85.6 fL (80-98); Mean Platelet Volume 11.1 fL (9.4-12.4); Platelet Count 203 X10*3/uL (160-400); Potassium 4.4 mmol/L (3.3-5.1); Red Blood Count 3.88 X10*6/uL (4.60-5.80); Sodium 136 mmol/L (135-145); Total Protein 6.3 g/dL (6.5-8.0); White Blood Count 15.1 X10*3/uL (4.8-10.8)
--- NOTE | 2020-11-24 09:38 | HO.PM.IMPN ---
Subjective Subjective Date of Service: 11/24/20 Interval History: Follow up Fever, abdominal pain, transaminitis. Better today, ate his breakfast with no vomiting or worsening pain. Physical Exam Vital Signs: Vital Signs: Last Vital Signs Temp 96.6 F L 11/24/20 08:00 Pulse 102 H 11/24/20 08:00 Resp 18 11/24/20 08:00 BP 135/69 11/24/20 08:00 Pulse Ox 99 11/24/20 08:00 Body Mass Index 24.4 Appearing in no acute distress eyes pupils are PERRLA sclera is anicteric lung sounds normal expansion heart rr positive bowel sounds, abdomen mildly tender neuro patient is alert x3, no focal deficits Objective Data Current Medications Generic Name Dose Route Start Last Admin Trade Name Freq PRN Reason Stop Dose Admin Albuterol Sulfate 2 puff 11/24/20 05:57 Albuterol Sulfate 90 Mcg 8 Gm Inhaler INHALE RQ4H PRN Shortness of Breath/Wheezing Docusate Sodium 100 mg 11/24/20 00:10 Docusate Sodium 100 Mg Capsule PO DAILY PRN Constipation Ceftriaxone Sodium 1 gm/ 50 mls @ 100 mls/hr 11/24/20 21:00 Sodium Chloride IV Q24H [facility] Insulin Human Lispro 0 unit 11/24/20 11:30 Insulin Lispro 100 Unit/Ml 3 Ml Vial SUBCUT QIDACHS [facility] Protocol Ondansetron HCl 4 mg 11/24/20 00:10 Ondansetron Hcl 4 Mg/2 Ml Vial IVPUSH Q8H PRN Nausea and Vomiting Sodium Chloride 3 ml 11/24/20 00:10 11/24/20 00:35 0.9 % Sodium Chloride Flush 3 Ml Syringe IVFLUSH Not Given QSHIFT [facility] Labs CBC & Chem 7: 11/24/20 08:28 11/24/20 08:28 Assessment and Plan (1) Jaundice: Status: Acute (2) Hepatitis: Status: Acute (3) Diabetes mellitus type 1, uncontrolled: Status: Acute Assessment and Plan: This is a 25-year-old male with past medical history of diabetes and asthma who presents to the hospital constitution of symptoms found to have transaminitis, elevated bilirubin, and multitude of other lab abnormalities # Acute hepatitis secondary to Mononucleosis. - LFT trending down, but still high. Recheck tommorrow. - abdominal ultrasound showing right hepatic lobe hemangioma and normal spleen. - GI to follow - resp panel, HIV and hepatitis pending although symptoms seem to be related to mono. - supportive care - Possible discharge for tomorrow if patient stable # Sepsis. Secondary to infectious mononucleosis. - leukocytosis trending down, still tachycardic. - follow blood cultures. - IV fluids. # Diabetes type 1 - patient uses a pump - continue home insulin pump - diabetic diet # Asthma - patient denies any wheezing, has no exacerbation of asthma symptoms - albuterol inhaler p.r.n. Attending. Dr. Youngblood
[2020-11-24 09:41] LABS: WBC ABN SCTR FOR CBC 1
[2020-11-24 09:51] LABS: Atypical Lymph Absolute Manual 6.9 x10*3/uL; Atypical Lymphs Percent Manual 46 % (0-6); Basophils Abs Manual 0.2 X10*3/uL (0.0-0.3); Basophils Percent Manual 1 % (0-1); Lymphocytes Absolute Manual 5.1 X10*3/uL (0.6-4.8); Lymphocytes Percent Manual 34 % (20-40); Monocytes Absolute Manual 0.9 X10*3/uL (0.0-1.2); Monocytes Percent Manual 6 % (2-11); Neutrophils Percent Manual 13 % (45-73)
[2020-11-24 09:52] LABS: Smudge Cells PRESENT
[2020-11-24 09:54] LABS: Hypochromasia 1+; Platelet Estimate NORMAL (NORMAL); Platelet Morphology Comment NORMAL; RBC Morphology NOTED
[2020-11-24 09:55] LABS: Band Neutrophils Percent 0 % (3-5)
[2020-11-24 11:11] LABS: SARS COV2 IgG Negative (Negative)
[2020-11-24 11:53] LABS: Glucose, Whole Blood 187 mg/dL (60-115)
[2020-11-24] MEDS: 0.9 % Sodium Chloride Flush 3 ML SYRINGE IVFLUSH (13:24)
--- NOTE | 2020-11-24 14:14 | MHC.CM.PN ---
CM met with pt who reports he lives alone and is fully independent. Pt reports he has no in home services. Pt has supplies related to his DM management at home and reports everything is in proper working condition. Pt does not have a HCP and asks for more information and a blank document which were provided. Pt confirms his PCP is Bev Saab. current DC plan is home with no services pt will self arrange transportation
[2020-11-24 14:19] LABS: Monotest Positive (Negative)
[2020-11-24] MEDS: 0.9 % Sodium Chloride 1,000 ML 75 ML IVCONT (14:49)
[2020-11-24 16:47] LABS: Adenovirus PCR Not Detected (Not Detect.); Bordetella parapertussis PCR Not Detected (Not Detect.); Bordetella pertussis PCR Not Detected (Not Detect.); Chlamydia pneumoniae PCR Not Detected (Not Detect.); Coronavirus 229E PCR Not Detected (Not Detect.); Coronavirus HKU1 PCR Not Detected (Not Detect.); Coronavirus NL63 PCR Not Detected (Not Detect.); Coronavirus OC43 PCR Not Detected (Not Detect.); Human metapneumovirus PCR Not Detected (Not Detect.); Influenza A PCR Not Detected (Not Detect.); Influenza B PCR Not Detected (Not Detect.); Mycoplasma pneumoniae PCR Not Detected (Not Detect.); Parainfluenza 1 PCR Not Detected (Not Detect.); Parainfluenza 2 PCR Not Detected (Not Detect.); Parainfluenza 3 PCR Not Detected (Not Detect.); Parainfluenza 4 PCR Not Detected (Not Detect.); RSV PCR Not Detected (Not Detect.); Rhino/Enterovirus PCR Not Detected (Not Detect.); SARS-CoV-2 PCR Not Detected (Not Detect.)
[2020-11-24 16:58] LABS: Glucose, Whole Blood 123 mg/dL (60-115)
--- NOTE | 2020-11-24 17:20 | PC.NURSE ---
patient not ready to eat dinner yet.no insulin coverage per our result.Has own insulin pump,He will check his sugar when ready to eat and will let this RN know if he is giving any coverage .
[2020-11-24] MEDS: Subcutaneous Insulin Pump 1 EACH SUBCUT ×2 (17:39→21:34)
[2020-11-24 21:04] LABS: Glucose, Whole Blood 181 mg/dL (60-115)
[2020-11-25] VITALS: BP 150/69; PULSE 86; RESP 18; TEMP 37.1; O2SAT 95
[2020-11-25] MEDS: 0.9 % Sodium Chloride Flush 3 ML SYRINGE IVFLUSH (00:22)
[2020-11-25] MEDS: 0.9 % Sodium Chloride 1,000 ML 75 ML IVCONT (00:23)
[2020-11-25 04:00] VITALS: BP 131/61; PULSE 80; RESP 18; TEMP 37.2; O2SAT 98
[2020-11-25 06:58] LABS: Alanine Aminotransferase 661 U/L (0-40); Albumin Level 3.4 g/dL (3.5-5.0); Alkaline Phosphatase 373 U/L (39-117); Anion Gap 16 (12-20); Aspartate Amino Transferase 453 U/L (5-37); Bilirubin Total 4.3 mg/dL (0.0-1.0); Blood Urea Nitrogen 7 mg/dL (9-16); Calcium 8.1 mg/dL (8.4-10.2); Carbon Dioxide 23 mmol/L (22-29); Chloride 100 mmol/L (96-108); Creatinine Clr Calc Pharmacy 120.6; Estimated Glomerular Filt Rate > 60; Glucose Random 188 mg/dL (60-115); Potassium 4.9 mmol/L (3.3-5.1); Sodium 134 mmol/L (135-145); Total Protein 6.6 g/dL (6.5-8.0)
[2020-11-25 06:59] LABS: Hematocrit 33.5 % (42-52); Hemoglobin 11.7 g/dl (14.0-18.0); Immature Retic Fraction 24.4 % (2.3-13.4); Mean Corpuscular HGB Conc 34.9 g/dl (31.0-36.0); Mean Corpuscular Hemoglobin 29.7 pg (27.0-33.0); Mean Platelet Volume 10.6 fL (9.4-12.4); Platelet Count 220 X10*3/uL (160-400); Red Blood Count 3.94 X10*6/uL (4.60-5.80); Red Cell Distribution Width 13.4 % (11.0-16.0); Retic HGB Equivalent 34.5 pg (30.0-35.0); Reticulocyte Percent 1.9 % (0.5-1.8); Reticulocytes Absolute 0.074 X10*6/uL (0.026-0.095)
[2020-11-25 07:00] LABS: WBC ABN SCTR FOR CBC 1
[2020-11-25 07:06] LABS: Alanine Aminotransferase 645 U/L (0-40); Albumin Level 3.3 g/dL (3.5-5.0); Alkaline Phosphatase 364 U/L (39-117); Anion Gap 15 (12-20); Aspartate Amino Transferase 436 U/L (5-37); Bilirubin Direct 2.7 mg/dL (0.0-0.5); Bilirubin Total 4.2 mg/dL (0.0-1.0); Blood Urea Nitrogen 7 mg/dL (9-16); Carbon Dioxide 22 mmol/L (22-29); Chloride 101 mmol/L (96-108); Creatinine Clr Calc Pharmacy 120.6; Estimated Glomerular Filt Rate > 60; Glucose Random 186 mg/dL (60-115); Iron 210 mcg/dL (45-160); Percent Iron Saturation 70 % (15-50); Potassium 5.2 mmol/L (3.3-5.1); Sodium 133 mmol/L (135-145); Total Iron Binding Capacity 302 mcg/dL (228-428); Total Protein 6.5 g/dL (6.5-8.0); Unsaturated Iron Binding 92 ug/dL
[2020-11-25 07:23] VITALS: BP 107/59; PULSE 88; RESP 16; TEMP 36.5; O2SAT 97
[2020-11-25 07:51] LABS: Glucose, Whole Blood 115 mg/dL (60-115)
--- NOTE | 2020-11-25 08:29 | PM.DS ---
DS: Providers Provider Date of Service: 11/25/20 <Shaila Higginbotham NP - Last Filed: 11/25/20 12:05> 11/25/20 <Dexter Youngblood MD - Last Filed: 11/25/20 12:41> Date of admission: 11/23/20 22:12 <Shaila Higginbotham NP - Last Filed: 11/25/20 12:05> Date of discharge: 11/25/20 <Shaila Higginbotham NP - Last Filed: 11/25/20 12:05> Primary care physician: Bev Reardon MD <Shaila Higginbotham NP - Last Filed: 11/25/20 12:05> Admitting clinician: [place] Arrieta <Shaila Higginbotham NP - Last Filed: 11/25/20 12:05> Attending physician on admission: [place] Arrieta <Shaila Higginbotham NP - Last Filed: 11/25/20 12:05> Consults: 11/24/20 08:20 Consult to Gastroenterology Routine Consulting Provider: Spencer Fajardo Reason for consultation: severe transaminitis Has provider been notified: No <Shaila Higginbotham NP - Last Filed: 11/25/20 12:05> Attending physician on discharge: Dexter Youngblood <Shaila Higginbotham NP - Last Filed: 11/25/20 12:05> Discharging clinician: Shaila Higginbotham <Shaila Higginbotham NP - Last Filed: 11/25/20 12:05> DS: Diagnosis Discharge Diagnosis (1) Jaundice: Status: Acute <Shaila Higginbotham NP - Last Filed: 11/25/20 12:05> (2) Hepatitis: Status: Acute <Shaila Higginbotham NP - Last Filed: 11/25/20 12:05> Problem details: Positive Monospot test indicating EBV infection <Shaila Higginbotham NP - Last Filed: 11/25/20 12:05> (3) Diabetes mellitus type 1, uncontrolled: Status: Acute <Shaila Higginbotham NP - Last Filed: 11/25/20 12:05> (4) Anemia: Status: Acute <Shaila Higginbotham NP - Last Filed: 11/25/20 12:05> DS: Medications Discharge Medications Home Medications: Home Medications Medication Instructions Recorded Confirmed insulin lispro [Humalog U-100 160 unit SUBCUT DAILY 03/14/21 03/14/21 Insulin] insulin pump cartridge 11/24/20 11/24/20 Previous Rx's Medication Instructions Recorded blood-glucose sensor #3 ea 09/17/20 <Shaila Higginbotham NP - Last Filed: 11/25/20 12:05> DS: Summary Hospital Course Hospital Course: HPI as per admitting provider 25-year-old male with past medical history of asthma diabetes type 1 who presents to the hospital with multiple complaints of fever, chills, shortness of breath, cough, jaundice, body aches, low appetite, for the past 1 week. Patient reports that he went to urgent care twice had COVID testing done twice and both tests were negative. He has been having fevers of 101-102, taking Tylenol about 1000 mg every 4-6 hours. He decided to come to the hospital as his symptoms did not resolve. He has nausea with no vomiting, no abdominal pain, no diarrhea or constipation. Reports no sick contacts or recent travel. He has had loss of smell and taste for 3 days but has now returned. He has significant loss of appetite and has not been drinking or eating enough. He has no contact with anybody with Copyright AgentID. Patient denies any urinary symptoms including no dysuria, frequency or urgency On arrival to the ED patient has a temperature of 101.2?, heart rate of 103, other vitals within normal range Labs are significant for WBC count of 18.9, hemoglobin of 13.7, PT of 12.5, INR of 1.1, PTT of 39.5, sodium of 134, chloride of 95, BUN of 8, creatinine of 0.88, ferritin of 5145, total bili of 7.9, direct bili of 4.8, AST of 597, ALT of 8 of 5, alk phos of 401, ammonia 39, LDH of 1459, CRP of 2.75, lipase of 10, procalcitonin of 0.37, urine that is positive for nitrites, no WBC or leukocyte Estrace, UDS negative, hepatitis panel pending, COVID-[address] pelvic CT shows mild hepatomegaly with liver measuring 19.7 cm with no other significant abnormality Chest CT is negative for any pathology . <Shaila Higginbotham NP - Last Filed: 11/25/20 12:05> Time Spent with Patient Time attestation: Total time spent providing and/or coordinating discharge services: <Shaila Higginbotham NP - Last Filed: 11/25/20 12:05> Discharge coordination time: Greater than 30 minutes <Shaila Higginbotham NP - Last Filed: 11/25/20 12:05> Physical Exam Vital Signs: Vital Signs: Last Vital Signs Temp 97.7 F 11/25/20 07:23 Pulse 88 11/25/20 07:23 Resp 16 11/25/20 07:23 BP 107/59 L 11/25/20 07:23 Pulse Ox 97 11/25/20 07:23 Body Mass Index 24.4 <Shaila Higginbotham NP - Last Filed: 11/25/20 12:05> Appearing in no acute distress head is normocephalic atraumatic mouth throat mucous membranes are intact and moist neck is supple with mild lymphadenopathy, no JVD noted lung sounds are clear to auscultation heart regular rate rhythm, clear S1, S2 positive bowel sounds, abdomen is soft, nontender neuro patient is alert x3, no focal deficits <Shaila Higginbotham NP - Last Filed: 11/25/20 12:05> DS: Data Data Completed and Pending Labs on day of discharge: Laboratory Results - last 24 hr 11/23/20 11/24/20 11/24/20 19:38 08:28 08:28 WBC 15.1 H RBC 3.88 L Hgb 11.6 L Hct 33.2 L MCV 85.6 MCH 29.9 MCHC 34.9 RDW 13.0 Plt Count 203 MPV 11.1 Immature Gran % (Auto) Cancelled Neut % (Auto) Cancelled Lymph % (Auto) Cancelled [place] % (Auto) Cancelled Eos % (Auto) Cancelled Baso % (Auto) Cancelled Lymph # (Auto) Cancelled [place] # (Auto) Cancelled Eos # (Auto) Cancelled Baso # (Auto) Cancelled Abs Immat Gran (auto) Cancelled Absolute Neuts (auto) Cancelled Absolute Nucleated RBC 0.000 Nucleated RBC % (auto) 0.0 Neutrophils % (Manual) 13 L Band Neutrophils % 0 L Lymphocytes % (Manual) 34 Atypical Lymphs % (Man) 46 H Monocytes % (Manual) 6 Basophils % (Manual) 1 Abs Neuts (Manual) 2.0 L Lymphocytes # (Manual) 5.1 H Atyp Lymphs # (Manual) 6.9 Monocytes # (Manual) 0.9 Basophils # (Manual) 0.2 Smudge Cells PRESENT Platelet Estimate NORMAL Plt Morphology Comment NORMAL RBC Morphology NOTED Hypochromasia 1+ Smear Path Review SEE NOTE Absolute Retic Percent Retic Immature Retic Fraction Retic Hgb Equivalent PT INR APTT Sodium 135 Potassium 4.3 Chloride 99 Carbon Dioxide 28 Anion Gap 12 BUN 8 L Creatinine 0.69 Estim Creat Clear Calc 132.8 Estimated GFR > 60 POC Glucose Random Glucose 105 Calcium 8.0 L D Iron TIBC % Saturation Unsat Iron Binding Total Bilirubin 4.8 H Direct Bilirubin AST 465 H ALT 646 H Alkaline Phosphatase 330 H Total Protein 6.3 L Albumin 3.3 L Monoscreen SARS-CoV-2 IgG Ab 11/24/20 11/24/20 11/24/20 08:28 08:28 08:28 WBC RBC Hgb Hct MCV MCH MCHC RDW Plt Count MPV Immature Gran % (Auto) Neut % (Auto) Lymph % (Auto) [place] % (Auto) Eos % (Auto) Baso % (Auto) Lymph # (Auto) [place] # (Auto) Eos # (Auto) Baso # (Auto) Abs Immat Gran (auto) Absolute Neuts (auto) Absolute Nucleated RBC Nucleated RBC % (auto) Neutrophils % (Manual) Band Neutrophils % Lymphocytes % (Manual) Atypical Lymphs % (Man) Monocytes % (Manual) Basophils % (Manual) Abs Neuts (Manual) Lymphocytes # (Manual) Atyp Lymphs # (Manual) Monocytes # (Manual) Basophils # (Manual) Smudge Cells Platelet Estimate Plt Morphology Comment RBC Morphology Hypochromasia Smear Path Review Absolute Retic Percent Retic Immature Retic Fraction Retic Hgb Equivalent PT 12.0 INR 1.0 APTT 38.7 H Sodium 136 Potassium 4.4 Chloride 100 Carbon Dioxide 28 Anion Gap 12 BUN 8 L Creatinine 0.69 Estim Creat Clear Calc 132.8 Estimated GFR > 60 POC Glucose Random Glucose 105 Calcium 8.0 L Iron TIBC % Saturation Unsat Iron Binding Total Bilirubin 4.8 H Direct Bilirubin 3.5 H AST 465 H ALT 645 H Alkaline Phosphatase 332 H Total Protein 6.3 L Albumin 3.3 L Monoscreen SARS-CoV-2 IgG Ab Negative 11/24/20 11/24/20 11/24/20 11:45 13:22 16:37 WBC RBC Hgb Hct MCV MCH MCHC RDW Plt Count MPV Immature Gran % (Auto) Neut % (Auto) Lymph % (Auto) [place] % (Auto) Eos % (Auto) Baso % (Auto) Lymph # (Auto) [place] # (Auto) Eos # (Auto) Baso # (Auto) Abs Immat Gran (auto) Absolute Neuts (auto) Absolute Nucleated RBC Nucleated RBC % (auto) Neutrophils % (Manual) Band Neutrophils % Lymphocytes % (Manual) Atypical Lymphs % (Man) Monocytes % (Manual) Basophils % (Manual) Abs Neuts (Manual) Lymphocytes # (Manual) Atyp Lymphs # (Manual) Monocytes # (Manual) Basophils # (Manual) Smudge Cells Platelet Estimate Plt Morphology Comment RBC Morphology Hypochromasia Smear Path Review Absolute Retic Percent Retic Immature Retic Fraction Retic Hgb Equivalent PT INR APTT Sodium Potassium Chloride Carbon Dioxide Anion Gap BUN Creatinine Estim Creat Clear Calc Estimated GFR POC Glucose 187 H 123 H Random Glucose Calcium Iron TIBC % Saturation Unsat Iron Binding Total Bilirubin Direct Bilirubin AST ALT Alkaline Phosphatase Total Protein Albumin Monoscreen Positive A SARS-CoV-2 IgG Ab 11/24/20 11/25/20 11/25/20 21:00 05:48 05:48 WBC RBC 3.94 L Hgb 11.7 L Hct 33.5 L MCV 85.0 MCH 29.7 MCHC 34.9 RDW 13.4 Plt Count 220 MPV 10.6 Immature Gran % (Auto) Cancelled Neut % (Auto) Cancelled Lymph % (Auto) Cancelled [place] % (Auto) Cancelled Eos % (Auto) Cancelled Baso % (Auto) Cancelled Lymph # (Auto) Cancelled [place] # (Auto) Cancelled Eos # (Auto) Cancelled Baso # (Auto) Cancelled Abs Immat Gran (auto) Cancelled Absolute Neuts (auto) Cancelled Absolute Nucleated RBC 0.000 Nucleated RBC % (auto) 0.0 Neutrophils % (Manual) Band Neutrophils % Lymphocytes % (Manual) Atypical Lymphs % (Man) Monocytes % (Manual) Basophils % (Manual) Abs Neuts (Manual) Lymphocytes # (Manual) Atyp Lymphs # (Manual) Monocytes # (Manual) Basophils # (Manual) Smudge Cells Platelet Estimate Plt Morphology Comment RBC Morphology Hypochromasia Smear Path Review Absolute Retic 0.074 Percent Retic 1.9 H Immature Retic Fraction 24.4 H Retic Hgb Equivalent 34.5 PT INR APTT Sodium 133 L Potassium 5.2 H Chloride 101 Carbon Dioxide 22 Anion Gap 15 BUN 7 L Creatinine 0.76 Estim Creat Clear Calc 120.6 Estimated GFR > 60 POC Glucose 181 H Random Glucose 186 H D Calcium 8.0 L Iron 210 H TIBC 302 % Saturation 70 H Unsat Iron Binding 92 Total Bilirubin 4.2 H Direct Bilirubin 2.7 H AST 436 H ALT 645 H Alkaline Phosphatase 364 H Total Protein 6.5 Albumin 3.3 L Monoscreen SARS-CoV-2 IgG Ab 11/25/20 11/25/20 05:48 07:20 WBC RBC Hgb Hct MCV MCH MCHC RDW Plt Count MPV Immature Gran % (Auto) Neut % (Auto) Lymph % (Auto) [place] % (Auto) Eos % (Auto) Baso % (Auto) Lymph # (Auto) [place] # (Auto) Eos # (Auto) Baso # (Auto) Abs Immat Gran (auto) Absolute Neuts (auto) Absolute Nucleated RBC Nucleated RBC % (auto) Neutrophils % (Manual) Band Neutrophils % Lymphocytes % (Manual) Atypical Lymphs % (Man) Monocytes % (Manual) Basophils % (Manual) Abs Neuts (Manual) Lymphocytes # (Manual) Atyp Lymphs # (Manual) Monocytes # (Manual) Basophils # (Manual) Smudge Cells Platelet Estimate Plt Morphology Comment RBC Morphology Hypochromasia Smear Path Review Absolute Retic Percent Retic Immature Retic Fraction Retic Hgb Equivalent PT INR APTT Sodium 134 L Potassium 4.9 Chloride 100 Carbon Dioxide 23 Anion Gap 16 BUN 7 L Creatinine 0.76 Estim Creat Clear Calc 120.6 Estimated GFR > 60 POC Glucose 115 Random Glucose 188 H Calcium 8.1 L Iron TIBC % Saturation Unsat Iron Binding Total Bilirubin 4.3 H Direct Bilirubin AST 453 H ALT 661 H Alkaline Phosphatase 373 H Total Protein 6.6 Albumin 3.4 L Monoscreen SARS-CoV-2 IgG Ab Preliminary micro results at discharge 11/23/20 19:53 Blood Culture - Preliminary Blood - Venous No growth after 24 hours. 11/23/20 19:38 Blood Culture - Preliminary Blood - Venous No growth after 24 hours. 11/23/20 20:14 Urine Culture - Preliminary Urine clean catch - Clean Catch Midstream No growth to date. <Shaila Higginbotham NP - Last Filed: 11/25/20 12:05> Discharge Plan Discharge Anticipated Discharge Date/Time: 11/25/20 08:30 <Shaila Higginbotham NP - Last Filed: 11/25/20 12:05> Patient Disposition: Home, Self-Care <Shaila Higginbotham NP - Last Filed: 11/25/20 12:05> Referrals: Bev Hill MD [Primary Care Provider] - <Shaila Higginbotham NP - Last Filed: 11/25/20 12:05> Discharge Medications: Continued (DME) Dexcom G6 Sensor Device See Rx Instructions .ROUTE .MEDSUPPLY Qty: 3 RF: 6 insulin lispro [Humalog U-100 Insulin] 100 unit/mL solution 160 unit subcut DAILY RF: 0 (DME) insulin pump cartridge Cartridge SUBCUT RF: 0 <Shaila Higginbotham NP - Last Filed: 11/25/20 12:05> Discharge Orders: Discharge Order (Routine); Ordered 11/25/20 Ordered By: Shaila Higginbotham <Shaila Higginbotham NP - Last Filed: 11/25/20 12:05> Diet: advance to usual diet <Shaila Higginbotham NP - Last Filed: 11/25/20 12:05> advance to usual diet <Dexter Youngblood MD - Last Filed: 11/25/20 12:41> Activity on Discharge: As tolerated <Shaila Higginbotham NP - Last Filed: 11/25/20 12:05> As tolerated <Dexter Youngblood MD - Last Filed: 11/25/20 12:41> Stand Alone Forms: Patient Portal Discharge page, Work/School Release <Shaila Higginbotham NP - Last Filed: 11/25/20 12:05> Other Ambulatory Orders: Liver Panel (Routine) Timeframe: 20201128 Facility: [facility] - Location: Laboratory Ordered By: Shaila Higginbotham <Shaila Higginbotham NP - Last Filed: 11/25/20 12:05> Care Plan Goals: Complete resolution of liver abnormality and viral symptoms <Shaila Higginbotham NP - Last Filed: 11/25/20 12:05> Health Concerns: Avoid Tylenol until after medical follow up <Shaila Higginbotham NP - Last Filed: 11/25/20 12:05> Plan of Treatment: Follow up with primary care provider in one week Check Liver panel test on 11/28/20 <Shaila Higginbotham NP - Last Filed: 11/25/20 12:05> Discharge Date/Time: 11/25/20 12:00 <Shaila Higginbotham NP - Last Filed: 11/25/20 12:05>
[2020-11-25 08:31] LABS: Vitamin B12 501 pg/mL (200-900)
[2020-11-25 09:29] LABS: Atypical Lymphs Percent Manual 20 % (0-6); Band Neutrophils Percent 7 % (3-5); Lymphocytes Percent Manual 44 % (20-40); Monocytes Percent Manual 9 % (2-11); Neutrophils Percent Manual 20 % (45-73)
[2020-11-25 09:31] LABS: RBC Morphology NOTED
[2020-11-25 09:32] LABS: Microcytosis 1+; Platelet Estimate NORMAL (NORMAL); Platelet Morphology Comment NORMAL
[2020-11-25] MEDS: Subcutaneous Insulin Pump 1 EACH SUBCUT (09:53)
[2020-11-25 10:13] LABS: Atypical Lymph Absolute Manual 3.2 x10*3/uL; Monocytes Absolute Manual 1.4 X10*3/uL (0.0-1.2); Neutrophils Absolute Manual 4.3 X10*3/uL (2.2-7.9)
[2020-11-25 10:14] LABS: Prothrombin Time 12.2 SEC (10.8-13.0)
--- NOTE | 2020-11-25 11:02 | MHC.CM.PN ---
NURSE VORTEX OPERATOR NOTE ELECTRONIC MEDICAL RECORD REVIEWED ALONG WITH CASE DISCUSSED WITH NEMO MERRILL ., MET WITH PATIENT HE IS AWARE THAT HE WILL BE DISCHARGED HOME TODAY RESUMING HIS HOME INSULIN LISPRO (HUMALOG) HIS DEXCOM GL SENSOR DEVICE nd his insulin oump cartige discharge plan home no services pcp dr robin river patient instructed to call for post hospital discharge follow up transportation patient to self arrange
[2020-11-26 08:04] LABS: HBS Num1 8.72 mIU/mL (0-7.99); HBc Num1 0.11 S/CO (0.00-0.79); Hepatitis A Antibody IgM 0.14 Index (0-0.79); Hepatitis B Core Antibody Nonreactive (Nonreactive); ~Hepatitis A Antibody IgM Nonreactive (Nonreactive)
[2020-11-26 08:04] LABS: HIV AB/AG Nonreactive (Nonreactive); HIV Num 1 0.09 S/CO (0.00-0.99)
[2020-11-26 08:25] LABS: HBsAGNum1 0.16 S/CO (0.00-0.99); Hepatitis B Surface Antigen Negative (Negative); ~HepC Num1 0.12 S/CO (0.00-0.79); ~Hepatitis C Antibody Nonreactive (Nonreactive)
[2020-11-26 10:35] LABS: HBS Num2 9.03 mIU/mL (0-7.99); HBS Num3 9.95 mIU/mL (0-7.99); ~Hepatitis B Surface Antibody GRAYZONE (Nonreactive)
[2020-11-26 19:46] LABS: Ceruloplasmin 43 mg/dL (18-36)
[2020-11-26 20:57] LABS: Anti Nuclear Antibody Screen NEGATIVE (NEGATIVE)
[2020-11-27 20:52] LABS: Haptoglobin <8 mg/dL (43-212)
[2020-11-28 11:57] LABS: Liver Kidney Microsomal Ab <=20.0 U (<=20.0)
[2020-12-02 21:56] LABS: Smooth Muscle Antibody <20 U (<20)
== END 2020-11-25 12:00 | disposition home or self-care (01) | DRG 872 ==
LOC: HO.ED 22:32 → HO.EDOVER 22:36 → HO.S3 11-24 03:01
PROVIDERS: Internal Medicine Gastroenterology; Nurse Practitioner Acute Care; Nurse Practitioner Family; Admitting Provider Internal Medicine; Emergency Provider Internal Medicine; PCP Internal Medicine; Visit Provider Family Medicine
DX: A41.9 Sepsis, unspecified organism (principal); N39.0 Urinary tract infection, site not specified; J45.909 Unspecified asthma, uncomplicated; E10.9 Type 1 diabetes mellitus without complications; B27.99 Infectious mononucleosis, unspecified with other complication; Z23 Encounter for immunization; Z96.41 Presence of insulin pump (external) (internal); Z20.822 Contact with and (suspected) exposure to COVID-19
CPT/HCPCS: 0241U; 36415; 71250; 74176; 76700; 80048; 80053; 80076; 80143; 80307; 81001; 81003; 82009; 82140; 82390; 82550; 82607; 82728; 82947; 83010; 83540; 83605; 83615; 83690; 84145; 85007; 85025; 85027; 85045; 85060; 85610; 85730; 86038; 86039; 86140; 86255; 86308; 86376; 86704; 86706; 86709; 86769; 86803; 86880; 87040; 87086; 87340; 87389; 87633; 90686; 96365; 96375; 99285; 99291; J0696; J1885; J2270

== ENCOUNTER → 2021-02-10 07:26 | Outpatient (BNVA) | payer OTHER, SELFPAY | PROVIDERS: PCP Internal Medicine; Visit Provider Nurse Practitioner Gerontology | DX: E10.65 Type 1 diabetes mellitus with hyperglycemia (principal) | CPT/HCPCS: 82947; Q3014 ==

== ENCOUNTER 2021-08-13 08:00 | Outpatient (RCR) | payer OTHER, SELFPAY ==
--- NOTE | 2021-07-14 09:42 | MHC.PT.EP ---
[facility] [place] Office [place] Office [place] Office [address] [phone] F: [phone] F: [phone] F: [phone] F: [phone] Physical Therapy Plan of Care Date of Evaluation: Date of Surgery: Diagnosis: LOW BACK PAIN Assessment: ARUN IS A PLEASANT 26 YO MALE WHO PRESENTS WITH LOW BACK PAIN WHICH APPEARS MUSCULAR IN NATURE. UPON EXAM HE DEMONSTRATES DECREASED TISSUE EXTENSIBILITY OF LUMBAR PARASPINAL MUSCULATURE, ALTERED POSTURE AND POSITIONING, DECREASED CORE STRENGTH, DECREASED STRENGTH OF HAMSTRINGS AND DECREASED LE ROM. FUNCTIONAL LIMITATIONS INCLUDE DECREASED ABILITY TO PERFORM WORK TASKS, LIFTING, PUSHING AND PULLING, DECREASED TOLERANCE TO STANDING STATIC, DISRUPTED SLEEP. HE IS A GOOD CANDIDATE FOR SKILLED THERAPY TO ADDRESS IMPAIRMENTS AND RETURN TO INDEPENDENT ALL ASPECTS. Frequency and Duration: The patient will be seen 2 X WEEK FOR 3 WEEKS THEN REASSESS Short Term Goals: INITIATE HEP AND PROMOTE SELF MANAGEMENT OF SYMPTOMS IN 2 VISITS Senior Care Goals: IN 4 WEEKS FULL, PAIN FREE LUMBAR ROM TO PERFORM FULL FUNCTIONAL SQUAT WITH CORRECT MECHANICS AND NO VERBAL CUING TO PERFORM 3:3 LIFTING TASKS WITHOUT CUING AND PAIN NO GREATER THAN 2/10 INDEPENDENT HEP AND SELF MANAGEMENT OF ANY RESIDUAL SYMPTOMS Treatment Plan: Modalities to reduce pain, spasms and effusion. Manual therapy to restore motion and function. Therapeutic exercise to improve strength and flexibility. Neuromuscular re-education for posture and balance. Therapeutic activities to return to functional activities of daily living. Electronically signed by: ANGE SIMMONS PT, DPT Please sign and return to therapist. Thank you for your referral.
--- NOTE | 2021-09-14 10:50 | MHC.PT.DC ---
[facility] [place] Office [place] Office [place] Office [address] [phone] F: [phone] F: [phone] F: [phone] F: [phone] Physical Therapy Discharge Report Diagnosis: LOW BACK PAIN Date of Surgery: Date of Evaluation: 07/14/21 Date of Discharge: 08/15/21 Treatments to Date: 7 Cancellations to Date: 0 No Shows to Date: 0 Discharge Status: Discharge Summary: At last attended visit, William was improving with ROM and strength but continuing to reprot mid thoracic pain. He did not make any further visits and attempts to reach by phone were unsucessful. Current status is unknown. Electronically signed by: Kenzie Morrison PT, DPT Please sign and return to therapist. Thank you for your referral.
== END 2021-09-14 10:51 | disposition home or self-care (01) ==
LOC: HO.PT 08:00
PROVIDERS: PCP Internal Medicine; Visit Provider Physician Assistant
DX: M51.9 Unspecified thoracic, thoracolumbar and lumbosacral intervertebral disc disorder (principal); M54.50 Low back pain, unspecified
CPT/HCPCS: 97110; 97140; 97161; 97535

== ENCOUNTER → 2022-04-23 08:01 | Outpatient (BNVA) | payer OTHER, SELFPAY | PROVIDERS: PCP Physician Assistant; Visit Provider Internal Medicine Endocrinology, Diabetes & Metabolism | DX: E10.65 Type 1 diabetes mellitus with hyperglycemia (principal) | CPT/HCPCS: 82947; 99212 ==

== ENCOUNTER → 2022-04-26 07:57 | Outpatient (BNVA) | payer OTHER, SELFPAY | PROVIDERS: PCP Physician Assistant; Visit Provider Registered Nurse Diabetes Educator | DX: E10.65 Type 1 diabetes mellitus with hyperglycemia (principal) | CPT/HCPCS: 99211 ==

== ENCOUNTER → 2022-07-07 08:40 | Outpatient (BNVA) | payer OTHER, SELFPAY | PROVIDERS: PCP Physician Assistant; Visit Provider Registered Nurse Diabetes Educator | DX: Z46.81 Encounter for fitting and adjustment of insulin pump (principal); E10.65 Type 1 diabetes mellitus with hyperglycemia | CPT/HCPCS: 99211 ==

== ENCOUNTER 2022-08-17 13:49 | Outpatient (REF) | payer OTHER, SELFPAY ==
[2022-08-17 16:11] LABS: Anion Gap 10 (12-20); Blood Urea Nitrogen 20 mg/dL (9-16); Calcium 9.5 mg/dL (8.4-10.2); Carbon Dioxide 30 mmol/L (22-29); Chloride 103 mmol/L (96-108); Cholesterol 176 mg/dL; Estimated Glomerular Filt Rate > 60; Free T4 (Free Thyroxine) 0.85 ng/dL (0.71-1.85); Glucose Random 119 mg/dL (60-115); HDL Cholesterol 57 mg/dL; LDL Cholesterol Calculated 103 mg/dl; Potassium 4.2 mmol/L (3.3-5.1); Sodium 139 mmol/L (135-145); Thyroid Stimulating Hormone 0.74 uIU/mL (0.32-4.0); Triglycerides 82 mg/dL
[2022-08-17 16:28] LABS: Creatinine Urine 166.15 mg/dL; Microalbum/Creatinine Ratio Ur 4.2 ug/mg cr
== END 2022-08-17 13:50 | disposition home or self-care (01) ==
LOC: HO.LAB 13:49
PROVIDERS: PCP Physician Assistant; Visit Provider Internal Medicine Endocrinology, Diabetes & Metabolism
DX: E10.65 Type 1 diabetes mellitus with hyperglycemia (principal)
CPT/HCPCS: 36415; 80048; 80061; 82043; 84439; 84443

== ENCOUNTER → 2022-08-18 09:36 | Outpatient (BNVA) | payer OTHER, SELFPAY | PROVIDERS: PCP Physician Assistant; Visit Provider Internal Medicine Endocrinology, Diabetes & Metabolism | DX: E10.65 Type 1 diabetes mellitus with hyperglycemia (principal); Z96.41 Presence of insulin pump (external) (internal) | CPT/HCPCS: 82947; 83036; 99212 ==

== ENCOUNTER → 2022-09-30 15:20 | Outpatient (BNVA) | payer BC, SELFPAY | PROVIDERS: PCP Physician Assistant; Visit Provider Registered Nurse Diabetes Educator | DX: Z13.89 Encounter for screening for other disorder (principal) ==

== ENCOUNTER 2023-04-06 13:05 | Outpatient (AMB) | payer BC, SELFPAY ==
[2023-04-06 13:08] VITALS: BP 118/76; PULSE 89; BMI 27.9
--- NOTE | 2023-04-06 13:08 | A.OFFVIS_ITS ---
Intake Vital Signs 04/06/23 13:08 Height 5 ft 3 in Weight 157 lb 10.088 oz BMI 27.9 BP 118/76 Blood Pressure Location Rt brachial Position Sitting Pulse 89 Pulse Source Pulse Oximeter Intake Visit Reasons: DM Intake Note: Patient present today to follow up on Type 1 Diabetes Mellitus. Patient receives DME supplies through: [facility] Last Diabetic Eye exam: October 2022 Last Podiatry Visit: Does not see a Promotions Executive Producer Random Glucose: 190 mg/dl HgA1C: 7.7% Family Resource Coordinator Required: No Accompanied by: Self / Same As Patient Allergies No Known Allergies [No Known Allergies*] Allergy (Verified 04/06/23 13:11) HPI HPI Comments History of Present Illness Details Patient is 26 yo male with DM type 1 diagnosed at 6 years old here for continued management of diabetes. P He is currently on Tandem T:slim X2 pump and Dexcom G6 sensor CGM average 190 range 49-,HI BAsal IQ in use 88 % of time. 51% range. 48 at % hyperglycemia with no hypoglycemia Average total daily dose 81.1 units/day, 62% basal, correction % and food bolus %. . Hand shows post- breakfast post-dinner hyperglycemia Pattern: Patient boluses often at the peak of the blood glucose surge. Pattern looks like post- meal lunch and dinner Basal rates Basal rate(s) (units/hour) : 12 AM? to 5 AM? 1.0 units / hr 2AM to 5 AM 1.0 units/hr 5 AM to 11 AM? 1.2 units / hr 11 AM? to 2 PM? 0.95 units / hr 2 PM to 12 AM 0.09 units / hr Bolus setting Insulin Carbohydrate Ratio (s) 12 AM? to 2 AM? 1:9? 2 AM 1 :9 5 AM to 11 AM 1:8 11 AM to 12 AM 1:5 Correction Factor / Sensitivity Factor 12 AM? to 11 AM? 1:30 11 AM to 9 PM 1:35 9 PM to 12 AM 1:32 Active Insulin Time:? 3? hours Target(s): 12 AM? to 12 AM? 120 mg/dL Exercise - just at work - walks 5- 6miles a day/work. Hypoglycemia:rare Optho:: 10/2022 [facility] Medical History Asthma Diabetes mellitus type 1, uncontrolled Surgical History No history of previous surgery Family History Father Seizures Hypertension Diabetes CVD (cardiovascular disease) Mother Breast cancer Social History Household Members: Family Housing: Apartment Do you presently have visiting nurse or other home services: No Patient Tobacco Use Status: Never used Tobacco e-Cigarette/Vaping Use: Never Used Second Hand Smoke Exposure: No Substance Use Type: Marijuana service: No Current occupational status: employed Cognitive needs: No Hearing needs: No Vision needs: No Physical Exam Vital Signs: Last Vital Signs Pulse 89 04/06/23 13:08 BP 118/76 04/06/23 13:08 BMI result Body Mass Index 27.9 Absence of Cushingoid features. Absence of acromegalic features. Neck exam reveals nl size thyroid about 15 gms. No thyroid nodules palpable. No carotid bruits present. Lungs CTA. Heart S1 S2, Reg R/R. No M/R/ G. Skin exam reveals absence of vitiligo or acanthosis nigricans. Abdominal exam reveals Soft NT/ND with NA BS. No organomegaly present. Extrem Other: Visual exam of foot performed. No ulcerations or open lesions. No onchomycosis, no callouses.Pulses 2 + distally. Sensation intact to monofilament exam. Vibratory sensation sensed 10 seconds in right, 10 seconds in left with 128 Hz tuning fork Results AMB Hemoglobin A1c AMB Hemoglobin A1c 7.7 % Last Edit by JOSH Bennett on 04/06/23 13:26 Results Reviewed Results Reviewed: 04/06/23 13:16 Glucose, Whole Blood Routine Laboratory Last Values Glucose (Clinic) 190 mg/dL (60-115) H 04/06/23 13:16 Hgb A1c (Clinic) 7.7 % (4.0-6.0) H 04/06/23 13:22 Assessment & Plan Assessment & Plan (1) Diabetes mellitus type 1, uncontrolled: Code(s): E10.65 - Type 1 diabetes mellitus with hyperglycemia Qualifiers: Glycemic state: with hyperglycemia Qualified Code(s): E10.65 - Type 1 diabetes mellitus with hyperglycemia Plan: This 27-year-old male with a history of type 1 diabetes being treated with insulin pump T-slim X 2 with control IQ poor glycemic control and no known microvascular or macrovascular complications Plan is have the patient bolus prior to meals. He will work on doing this I will have him follow-up with the chyron operator Orders: Orders AMB Hemoglobin A1c Today E10.65 - Type 1 diabetes mellitus with hyperglycemia Coding Level of Care Code Est Pt Level 4 (97564) Diagnoses Diabetes mellitus type 1, uncontrolled E10.65 Glycemic state: with hyperglycemia
[2023-04-06 13:20] LABS: Glucose, Whole Blood 190 mg/dL (60-115)
== END 2023-04-06 13:51 | disposition home or self-care (01) ==
PROVIDERS: PCP Physician Assistant; Visit Provider Internal Medicine Endocrinology, Diabetes & Metabolism
DX: E10.65 Type 1 diabetes mellitus with hyperglycemia (principal)
CPT/HCPCS: 99214

== ENCOUNTER → 2023-04-06 13:05 | Outpatient (BNVA) | payer BC, SELFPAY | PROVIDERS: PCP Physician Assistant; Visit Provider Internal Medicine Endocrinology, Diabetes & Metabolism | DX: E10.65 Type 1 diabetes mellitus with hyperglycemia (principal) | CPT/HCPCS: 82947; 83036 ==

== ENCOUNTER 2023-04-18 10:41 | Outpatient (AMB) | payer BC, SELFPAY ==
--- NOTE | 2023-04-18 11:07 | MHC.AMDMED ---
Intake Intake Visit Reasons: DM Allergies No Known Allergies [No Known Allergies*] Allergy (Verified 04/06/23 13:11) [facility] Comprehensive Diabetes Asmnt Most Recent Diabetes Results: Microalb/Creat Ratio 4.2 ug/mg cr 08/17/22 Cholesterol 176 mg/dL 08/17/22 HDL Cholesterol 57 mg/dL 08/17/22 Triglycerides 82 mg/dL 08/17/22 Creatinine 1.19 mg/dL (0.5-1.4) 08/17/22 Blood Urea Nitrogen 20 mg/dL (9-16) H 08/17/22 Sodium 139 mmol/L (135-145) 08/17/22 Potassium 4.2 mmol/L (3.3-5.1) 08/17/22 Chloride 103 mmol/L (96-108) 08/17/22 Carbon Dioxide 30 mmol/L (22-29) H 08/17/22 Calcium 9.5 mg/dL (8.4-10.2) 08/17/22 [facility] Medical History Asthma Diabetes mellitus type 1, uncontrolled Surgical History No history of previous surgery Family History Father Seizures Hypertension Diabetes CVD (cardiovascular disease) Mother Breast cancer Social History Household Members: Family Housing: Apartment Do you presently have visiting nurse or other home services: No Patient Tobacco Use Status: Never used Tobacco e-Cigarette/Vaping Use: Never Used Second Hand Smoke Exposure: No Substance Use Type: Marijuana service: No Current occupational status: employed Cognitive needs: No Hearing needs: No Vision needs: No Assessment & Plan Assessment & Plan (1) Diabetes mellitus type 1, uncontrolled: Code(s): E10.65 - Type 1 diabetes mellitus with hyperglycemia Qualifiers: Glycemic state: with hyperglycemia Qualified Code(s): E10.65 - Type 1 diabetes mellitus with hyperglycemia Plan: Patient presents for pump training for T slim with control IQ and Dexcom G6 Patient is still struggling to bolus 15 minutes before meals Since upgrading from basal to control IQ patient's glucose control has improved The following topics were reviewed today: - When to change set or Pod - reinforced importance of bolusing prior to meals - T connect bolusing claribel downloaded and connected to patient's smart phone Patient above target 41 % Patient at target 56 % Patient below target 2% Average glucose 175 mg/dL the past 2 weeks Patient's A1c from 04/06/23 7.7% Patient successfully completed? T slim activites and updated pump from basal IQ to control IQ Reviewed with patient importance of changing insulin delivery set/Pod every 72 hours, with site rotation. Patient given the opportunity to ask questions about pump function Patient having some hypoglycemic events post meal in the afternoon, see pump changes below Instructed patient to comply tandem activity relating to bolusing from smart phone Basal rate(s) (units/hour) : 12 AM? to 5 AM? 1.0 units / hr 5 AM to 11 AM? 1.2 units / hr 11 AM? to 2 PM? 0.95 units / hr 2 PM to 12 AM 0.09 units / hr Bolus setting Insulin Carbohydrate Ratio (s) 12 AM? to 11 AM? 1:9? 5 AM to 11 AM 1:8 New 5 AM to 11 AM 1:6 11 AM to 2 PM 1:4 New 11 AM to 2 PM 1:4 2 PM to 12 AM 1:12 Correction Factor / Sensitivity Factor 12 AM? to 11 AM? 1:30 11 AM to 9 PM 1:35 9 PM to 12 AM 1:32 Active Insulin Time:? 3? hours Target(s): 12 AM? to 12 AM? 120 mg/dL Patient will follow up with [facility] as instructed Patient will contact [facility] with questions or concerns, patient given IT number to support in any technical issues related to insulin pump Coding Level of Care Code Est Pt Level 1 (01399) Diagnoses Diabetes mellitus type 1, uncontrolled E10.65 Glycemic state: with hyperglycemia
== END 2023-04-18 11:09 | disposition home or self-care (01) ==
PROVIDERS: PCP Physician Assistant; Visit Provider Registered Nurse Diabetes Educator
DX: E10.65 Type 1 diabetes mellitus with hyperglycemia (principal)
CPT/HCPCS: 99211

== ENCOUNTER → 2023-04-18 10:41 | Outpatient (BNVA) | payer BC, SELFPAY | PROVIDERS: PCP Physician Assistant; Visit Provider Registered Nurse Diabetes Educator ==

== ENCOUNTER 2023-05-19 15:23 | Outpatient (AMB) | payer BC, SELFPAY ==
--- NOTE | 2023-05-19 15:53 | MHC.AMDMED ---
Intake Intake Visit Reasons: DM/Pump Television Inspector Required: No Accompanied by: Self / Same As Patient Allergies No Known Allergies [No Known Allergies*] Allergy (Verified 04/06/23 13:11) HPI Comprehensive Diabetes Asmnt Most Recent Diabetes Results: No Data to Display [facility] Medical History Asthma Diabetes mellitus type 1, uncontrolled Surgical History No history of previous surgery Family History Father Seizures Hypertension Diabetes CVD (cardiovascular disease) Mother Breast cancer Social History Household Members: Family Housing: Apartment Do you presently have visiting nurse or other home services: No Patient Tobacco Use Status: Never used Tobacco e-Cigarette/Vaping Use: Never Used Second Hand Smoke Exposure: No Substance Use Type: Marijuana service: No Current occupational status: employed Cognitive needs: No Hearing needs: No Vision needs: No Assessment & Plan Assessment & Plan (1) Diabetes mellitus type 1, uncontrolled: Code(s): E10.65 - Type 1 diabetes mellitus with hyperglycemia Qualifiers: Glycemic state: with hyperglycemia Qualified Code(s): E10.65 - Type 1 diabetes mellitus with hyperglycemia Plan Patient presents for pump training for T slim with control IQ and Dexcom G6 Patient is still struggling to bolus 15 minutes before meals Since upgrading from basal to control IQ patient's glucose control has improved The following topics were reviewed today: - When to change set or Pod - reinforced importance of bolusing prior to meals - T connect bolusing claribel downloaded and connected to patient's smart phone Patient above target 50 % Patient at target 47 % Patient below target 2% Average glucose 197 mg/dL the past 2 weeks Patient's A1c from 04/06/23 7.7% Patient having postprandial hyperglycemia after breakfast. Hyperglycemia continues throughout the day however does not have large postprandial rise after lunch or supper. See changes to insulin pump settings below Patient successfully completed? T slim activites and updated pump from basal IQ to control IQ Reviewed with patient importance of changing insulin delivery set/Pod every 72 hours, with site rotation. Patient given the opportunity to ask questions about pump function Patient having some hypoglycemic events post meal in the afternoon, see pump changes below Instructed patient to comply tandem activity relating to bolusing from smart phone Basal rate(s) (units/hour) : 12 AM? to 5 AM? 1.0 units / hr 5 AM to 11 AM? 1.2 units / hr 11 AM? to 2 PM? 0.95 units / hr 2 PM to 12 AM 0.09 units / hr Bolus setting Insulin Carbohydrate Ratio (s) 12 AM? to 11 AM? 1:9? 5 AM to 11 AM 1:8 New 5 AM to 11 AM 1:5 11 AM to 2 PM 1:5 2 PM to 12 AM 1:5 Correction Factor / Sensitivity Factor 12 AM? to 11 AM? 1:30 11 AM to 9 PM 1:35 9 PM to 12 AM 1:32 Active Insulin Time:? 3? hours Target(s): 12 AM? to 12 AM? 120 mg/dL Patient will follow up with [facility] as instructed Patient will contact [facility] with questions or concerns, patient given IT number to support in any technical issues related to insulin pump Patient Instructions: Follow-up with diabetes Coding Level of Care Code Est Pt Level 1 (23119) Diagnoses Uncontrolled type 1 diabetes mellitus with hyperglycemia E10.65 Glycemic state: with hyperglycemia
== END 2023-05-19 15:55 | disposition home or self-care (01) ==
PROVIDERS: PCP Physician Assistant; Visit Provider Registered Nurse Diabetes Educator
DX: E10.65 Type 1 diabetes mellitus with hyperglycemia (principal)

== ENCOUNTER → 2023-05-19 15:23 | Outpatient (BNVA) | payer BC, SELFPAY | PROVIDERS: PCP Physician Assistant; Visit Provider Registered Nurse Diabetes Educator | DX: Z46.81 Encounter for fitting and adjustment of insulin pump (principal); E10.65 Type 1 diabetes mellitus with hyperglycemia | CPT/HCPCS: 99211 ==

== ENCOUNTER 2023-07-07 13:32 | Outpatient (AMB) | payer BC, SELFPAY ==
[2023-07-07 13:46] VITALS: BP 118/68; PULSE 72; O2SAT 98; BMI 28.0
--- NOTE | 2023-07-07 13:46 | A.OFFPC_ITS ---
Vital Signs 07/07/23 13:46 Height 5 ft 3 in Weight 158 lb BMI 28.0 BP 118/68 Blood Pressure Location Lt brachial Position Sitting Pulse 72 Pulse Source Pulse Oximeter Pulse Oximetry (%) 98 Oxygen Delivery Method Room Air Intake Visit Reasons: hearing voices Allergies No Known Allergies [No Known Allergies*] Allergy (Verified 07/07/23 13:46) Medication List - Last Reconciled 07/07/23 by Berta Arias MD albuterol sulfate 90 mcg/actuation 1 inh inhalation QID 30 days baclofen 5 mg PO BEDTIME 30 days docusate sodium (Colace) 100 mg PO BID 7 days glucagon 3 mg/actuation (Baqsimi) 3 mg intranasal ONCE insulin aspart (niacinamide) 100 unit/mL (Fiasp U-100 Insulin) Inject up to 100 units daily by insulin pump subcutaneously; insulin pump cartridge trazodone 50 mg PO BEDTIME PRN Tobacco use date assessed: 12/08/22 Dental Screening Dental Screen Date: 07/07/23 Did you have a dental visit in the last 12 months?: Yes Did you have a dental problem in the last 6 months where you did not have access to dental care?: No Was dental information given to patient?: Patient has dentist HPI hearing voices HPI Details 28-year-old overweight male with diabete s mellitus type 1 coming in for an acute problem. This the 1st time I am seeing the patient. Patient is being followed up by Endocrinology review of the blood work shows anemia 11.7 with last hemoglobin A1c in March 2023 at 7.7 goal of less than 6.5 LDL goal of less than 100 patient's LDL done in August 2022 was 103. patient states have not been sleeping for 2-3 days- stress and did call counselling - will try to call. with that hving auditory hallucination. [facility] Medical History Asthma Diabetes mellitus type 1, uncontrolled Surgical History No history of previous surgery Family History (Updated 07/07/23 @ 13:47 by Jesika Damon CMA) Father Seizures Hypertension Diabetes CVD (cardiovascular disease) Mother Breast cancer Other Mental health disorder Social History Household Members: Family Housing: Apartment Do you presently have visiting nurse or other home services: No Patient Tobacco Use Status: Never used Tobacco e-Cigarette/Vaping Use: Never Used Second Hand Smoke Exposure: No Substance Use Type: Marijuana service: No Current occupational status: employed Cognitive needs: No Hearing needs: No Vision needs: No Questionnaire PHQ-9 Over the last 2 weeks, how often have you been bothered by any of the following problems? 1. Little interest or pleasure in doing things: several days 2. Feeling down, depressed, or hopeless: several days 3. Trouble falling or staying asleep, or sleeping too much: several days 4. Feeling tired or having little energy: several days 5. Poor appetite or overeating: several days 6. Feeling bad about yourself - or that you are a failure or have let yourself or your family down: not at all 7. Trouble concentrating on things, such as reading the newspaper or watching television: several days 8. Moving or speaking so slowly that other people could have noticed. Or the opposite - being so fidgety or restless that you have been moving around a lot more than usual: several days 9. Thoughts that you would be better off or of hurting yourself in some way: not at all Total score: 7 Depression Screening Interpretation: Negative Depression Screening Done: Yes Source: Developed by Drs. Sal Ureña, Loly Nash, Elijah Del Cid and colleagues, with an educational kit from [employer]. Thrive Questionnaire Date Thrive assessed: 12/08/22 AUDIT C Alcohol Use Questionnaire (AUDIT-C) 1. How often do you have a drink containing alcohol?: Monthly or less 2. How many drinks containing alcohol do you have on a typical day when you are drinking?: 3 or 4 3. How often do you have six or more drinks on one occasion?: Never Total Score: 2 RAUL-7 AMB Questionnaire RAUL-7 Date RAUL - 7 assessed: 12/08/22 Source: Developed by Drs. Sal Ureña, Loly Nash, Elijah Del Cid and colleagues, with an educational kit from [employer]. Physical exam (Primary Care) Vital Signs: Last Vital Signs Pulse 72 07/07/23 13:46 BP 118/68 07/07/23 13:46 Pulse Ox 98 07/07/23 13:46 Oxygen Delivery Method Room Air 07/07/23 13:46 BMI result Body Mass Index 28.0 Tobacco/Smoking Status: Tobacco use Status Tobacco use date assessed 12/08/22 07/07/23 13:52 Patient Tobacco Use Status Never used Tobacco 07/07/23 13:52 e-Cigarette/Vaping Use Never Used 07/07/23 13:52 PHQ-9: PHQ-9 Score PHQ-9: Total score 7 07/07/23 13:52 Depression Screening Interpretation: Negative Thrive Assessment: Date of Thrive Assessment Date Thrive assessed 12/08/22 07/07/23 13:52 Const General: alert; No acute distress Eyes Conjunctivae: conjunctivae normal Resp Auscultation: clear to auscultation bilaterally Cardio Rate: regular rate Rhythm: regular rhythm GI Inspection: Yes normal to inspection Extrem General: Yes normal to inspection and No edema Office Procedures Flu Questionnaire Does the patient have a severe egg allergy?: No Does the patient have severe life threatening allergies?: No Does the patient have a fever or illness today?: No Has the patient ever had Guillain-Arden Syndrome?: No Has the patient ever had any past reaction to a flu shot?: No Immunizations flu vacc [id number] 6mos up(PF) 60 mcg(15 mcgx4)/0.5 mL IM syringe Performing Provider: Berta Arias MD Performing Location: [facility] Administered by: Jesika Damon CMA on 07/07/23 13:53 Dose Route Admin Location Dispensed Lot Number Expiration Date [employer] Power Lineworker 0.5 mL IM Left Deltoid 0.5 mL [id number] 03/11/24 22627-971-30 [employer] VIS Given Date VIS Provided VIS Publication Date 07/07/23 Single Vaccine 21 Eligibility Eligibility Date Funding Source Not [facility] Eligible 07/07/23 Private Assessment and Plan Assessment & Plan (1) Diabetes mellitus type 1, uncontrolled: Comment: Eye and lasik Code(s): E10.65 - Type 1 diabetes mellitus with hyperglycemia Qualifiers: Glycemic state: with hyperglycemia Qualified Code(s): E10.65 - Type 1 diabetes mellitus with hyperglycemia Plan: Decrease the amount of carbohydrate intake, pasta, bread, rice and potatoes are all sugar and that is aside from all the sweet stuff, remember that fruits are good but they are Sweet also. Continue to follow-up with Endocrinology discussed about eye exam (2) Hypercholesterolemia: Code(s): E78.00 - Pure hypercholesterolemia, unspecified Plan: Avoid fried foods, chicken skin, eggs, butter margarine, pastries and meat. Be it pork or beef they have a lot of cholesterol LDL goal of less than 100 and triglyceride of less than 130 patient advised to get blood work (3) Anemia: Code(s): D64.9 - Anemia, unspecified Plan: Discussed about the anemia done in 2020. Follow-up blood work (4) Insomnia: Code(s): G47.00 - Insomnia, unspecified Plan: Prescription sent in and discussed about side effects Orders: Orders IRON PROFILE Today G47.00 - Insomnia, unspecified Reticulocyte Count Today G47.00 - Insomnia, unspecified Hemoglobin A1c Today G47.00 - Insomnia, unspecified Comprehensive Met. Panel Today G47.00 - Insomnia, unspecified Vitamin B12 and Folate Today G47.00 - Insomnia, unspecified UA w Microscopic Today G47.00 - Insomnia, unspecified Magnesium Today G47.00 - Insomnia, unspecified Influenza [id number] Immunization Today Z23 - Encounter for immunization Complete Blood Count Auto Diff Today G47.00 - Insomnia, unspecified Thyroid Stimulating Hormone Today G47.00 - Insomnia, unspecified Free T4 (Free Thyroxine) Today G47.00 - Insomnia, unspecified Lipid Panel Today E78.00 - Pure hypercholesterolemia, unspecified, G47.00 - Insomnia, unspecified Creatinine Urine Today E11.65 - Type 2 diabetes mellitus with hyperglycemia, G47.00 - Insomnia, unspecified Microalbumin, Random (w Creat) Today E11.65 - Type 2 diabetes mellitus with hyperglycemia, G47.00 - Insomnia, unspecified Medications: New trazodone 50 mg PO BEDTIME PRN 30 tabs 2RF sleep G47.00 - Insomnia, unspecified Coding Level of Care Code Est Pt Level 4 (53570) Diagnoses Uncontrolled type 1 diabetes mellitus with hyperglycemia E10.65 Glycemic state: with hyperglycemia Hypercholesterolemia E78.00 Anemia D64.9 Insomnia G47.00
== END 2023-07-07 14:16 | disposition home or self-care (01) ==
PROVIDERS: PCP Physician Assistant; Visit Provider Internal Medicine
DX: E10.65 Type 1 diabetes mellitus with hyperglycemia (principal); E78.00 Pure hypercholesterolemia, unspecified; D64.9 Anemia, unspecified; G47.00 Insomnia, unspecified; Z23 Encounter for immunization
CPT/HCPCS: 90471; 90686; 99214

== ENCOUNTER 2023-09-19 14:37 | Outpatient (AMB) | payer OTHER, SELFPAY ==
--- NOTE | 2023-09-19 15:04 | A.OFFVIS_ITS ---
Intake Intake Visit Reasons: DM/confirmed Central Supply Clerk Required: No Accompanied by: Self / Same As Patient Allergies No Known Allergies [No Known Allergies*] Allergy (Verified 07/07/23 13:46) HPI Comprehensive Diabetes Asmnt Most Recent Diabetes Results: Microalb/Creat Ratio 4.2 ug/mg cr 08/17/22 Cholesterol 176 mg/dL 08/17/22 HDL Cholesterol 57 mg/dL 08/17/22 Triglycerides 82 mg/dL 08/17/22 Creatinine 1.19 mg/dL (0.5-1.4) 08/17/22 Blood Urea Nitrogen 20 mg/dL (9-16) H 08/17/22 Sodium 139 mmol/L (135-145) 08/17/22 Potassium 4.2 mmol/L (3.3-5.1) 08/17/22 Chloride 103 mmol/L (96-108) 08/17/22 Carbon Dioxide 30 mmol/L (22-29) H 08/17/22 Calcium 9.5 mg/dL (8.4-10.2) 08/17/22 AST 453 U/L (5-37) H 11/25/20 ALT 661 U/L (0-40) H 11/25/20 Total Protein 6.6 g/dL (6.5-8.0) 11/25/20 Albumin 3.4 g/dL (3.5-5.0) L 11/25/20 [facility] Medical History Asthma Diabetes mellitus type 1, uncontrolled Surgical History No history of previous surgery Family History (Updated 07/07/23 @ 13:47 by Jesika Damon CMA) Father Seizures Hypertension Diabetes CVD (cardiovascular disease) Mother Breast cancer Other Mental health disorder Social History Household Members: Family Housing: Apartment Do you presently have visiting nurse or other home services: No Patient Tobacco Use Status: Never used Tobacco e-Cigarette/Vaping Use: Never Used Second Hand Smoke Exposure: No Substance Use Type: Marijuana service: No Current occupational status: employed Cognitive needs: No Hearing needs: No Vision needs: No Assessment & Plan Assessment & Plan (1) Diabetes mellitus type 1, uncontrolled: Comment: Eye and lasik Code(s): E10.65 - Type 1 diabetes mellitus with hyperglycemia Qualifiers: Glycemic state: with hyperglycemia Qualified Code(s): E10.65 - Type 1 diabetes mellitus with hyperglycemia Plan: Plan Patient presents for pump training for T slim with control IQ and Dexcom G6 Patient is still struggling to bolus 15 minutes before meals Patient can no longer bolus from his phone due to upgrade on smart phone The following topics were reviewed today: - upgrade T slim to Dexcom G7 - reinforced importance of bolusing prior to meals Patient above target 46 % Patient at target 51 % Patient below target 3 % Average glucose 186 mg/dL the past 2 weeks Patient's A1c from 04/06/23 7.7%, patient overdue for next A1c, order for A1c in patient's labs Patient's T slim is out of warranty, discussed patient's switching to iLet insulin pump Patient reports he has new insurance and will contact insurance cost of insulin pump for both T slim and iLet Patient successfully completed? T slim activites and updated pump from basal IQ to control IQ Reviewed with patient importance of changing insulin delivery set/Pod every 72 hours, with site rotation. Patient given the opportunity to ask questions about pump function Patient having some hypoglycemic events post meal in the afternoon, see pump changes below Basal rate(s) (units/hour) : 12 AM? to 5 AM? 1.0 units / hr 5 AM to 11 AM? 1.2 units / hr 11 AM? to 4 PM? 0.9units / hr 4 PM to 9 PM 0.9 units / hr 9 PM to 12 AM 0.9 units / hr New 9 PM to 12 AM 1.1 units / hr Bolus setting Insulin Carbohydrate Ratio (s) 12 AM? to 11 AM? 1:9? 5 AM to 11 AM 1:5 11 AM to 2 PM 1:5 2 PM to 12 AM 1:5 Correction Factor / Sensitivity Factor 12 AM? to 11 AM? 1:30 11 AM to 9 PM 1:35 9 PM to 12 AM 1:32 Active Insulin Time:? 3? hours Target(s): 12 AM? to 12 AM? 120 mg/dL Patient will follow up with [facility] as instructed Patient will contact [facility] with questions or concerns, patient given IT number to support in any technical issues related to insulin pump Patient Instructions: Make next appointment with Dr. Couch Make appointment to follow-up with life skills educator in 2 months or [address] Couch Coding Level of Care Code Est Pt Level 1 (11217) Diagnoses Uncontrolled type 1 diabetes mellitus with hyperglycemia E10.65 Glycemic state: with hyperglycemia
== END 2023-09-19 15:17 | disposition home or self-care (01) ==
PROVIDERS: PCP Physician Assistant; Visit Provider Registered Nurse Diabetes Educator
DX: E10.65 Type 1 diabetes mellitus with hyperglycemia (principal)

== ENCOUNTER → 2023-09-19 14:37 | Outpatient (BNVA) | payer OTHER, SELFPAY | PROVIDERS: PCP Physician Assistant; Visit Provider Registered Nurse Diabetes Educator | DX: Z46.81 Encounter for fitting and adjustment of insulin pump (principal); E10.65 Type 1 diabetes mellitus with hyperglycemia | CPT/HCPCS: 99211 ==

== ENCOUNTER 2023-10-05 10:02 | Outpatient (REF) | payer OTHER, SELFPAY ==
[2023-10-05 10:25] LABS: MANUAL DIFF FLAG NO
[2023-10-05 11:06] LABS: Basophils Percent Auto 0.5 % (0-2); Eosinophils Absolute Auto 0.2 X10*3/uL (0.0-0.4); Eosinophils Percent Auto 3.3 % (0-4); Hemoglobin 15.4 g/dl (14.0-18.0); Imm Gran Abs Auto 0.01 X10*3/uL (0.00-0.03); Imm Gran Pct Auto 0.2 % (0.0-0.4); Immature Retic Fraction 4.3 % (2.3-13.4); Lymphocytes Absolute Auto 1.4 X10*3/uL (1.2-4.9); Lymphocytes Percent Auto 21.9 % (20-40); Mean Corpuscular HGB Conc 35.8 g/dl (31.0-36.0); Mean Corpuscular Hemoglobin 29.8 pg (27.0-33.0); Mean Corpuscular Volume 83.3 fL (80.0-98.0); Mean Platelet Volume 11.3 fL (9.4-12.4); Monocytes Absolute Auto 0.3 X10*3/uL (0.1-1.2); Monocytes Percent Auto 3.9 % (2-11); Neutrophils Absolute Auto 4.5 x10*3/uL (2.0-8.3); Neutrophils Percent Auto 70.2 % (45-73); Platelet Count 253 X10*3/uL (160-400); Red Blood Count 5.16 X10*6/uL (4.60-5.80); Red Cell Distribution Width 12.1 % (11.0-16.0); Reticulocyte Percent 1.2 % (0.5-1.8); Reticulocytes Absolute 0.064 X10*6/uL (0.026-0.095); White Blood Count 6.4 X10*3/uL (4.8-10.8)
[2023-10-05 11:17] LABS: Estimated Average Glucose 169 mg/dL; Hemoglobin A1c % 7.5 % (<6.0)
[2023-10-05 11:51] LABS: Appearance Urine Clear; Color Urine Yellow; Glucose Urine UA >=1000 mg/dL (Negative); Leukocyte Esterase Urine Negative (Negative); Nitrite Urine Negative (Negative); PH 5.5 (5.0-9.0); Specific Gravity - Urine >= 1.030 (1.005-1.025); UMIC TRIGGER UA YES; Urine Blood Negative (Negative); Urine Ketones 15 mg/dL (Negative); Urine Protein Negative (Neg-Trace)
[2023-10-05 11:54] LABS: Bacteria Urine None Seen (None Seen); Hyaline Casts Urine 0-2 /LPF (0-2); RBC Urine 0-2 /HPF (0-2); Squamous Epithelial Cell Urine 0-2 /HPF (0-2); WBC Urine 0-5 /HPF (0-5)
[2023-10-05 12:21] LABS: Alanine Aminotransferase 32 U/L (0-40); Albumin Level 4.4 g/dL (3.5-5.0); Alkaline Phosphatase 72 U/L (39-117); Anion Gap 13 (12-20); Aspartate Amino Transferase 20 U/L (5-37); Blood Urea Nitrogen 17 mg/dL (9-16); Calcium 9.7 mg/dL (8.4-10.2); Carbon Dioxide 26 mmol/L (22-29); Chloride 100 mmol/L (96-108); Cholesterol 155 mg/dL (<200); Estimated Glomerular Filt Rate > 60; Glucose Random 226 mg/dL (60-115); HDL Cholesterol 57 mg/dL (>40); Iron 159 mcg/dL (45-160); LDL Cholesterol Calculated 88 mg/dL (<100); Magnesium 1.9 mg/dL (1.6-2.6); Percent Iron Saturation 50 % (15-50); Potassium 3.6 mmol/L (3.3-5.1); Sodium 135 mmol/L (135-145); Total Iron Binding Capacity 320 mcg/dL (228-428); Total Protein 7.7 g/dL (6.5-8.0); Triglycerides 50 mg/dL (<150); Unsaturated Iron Binding 161 ug/dL
[2023-10-05 12:38] LABS: Free T4 (Free Thyroxine) 0.88 ng/dL (0.71-1.85); Thyroid Stimulating Hormone 0.75 uIU/mL (0.32-4.0)
[2023-10-05 12:47] LABS: Folate 10.4 ng/mL (> or = 4.0); Vitamin B12 479 pg/mL (200-900)
[2023-10-05 13:37] LABS: Creatinine Urine 255.63 mg/dL; Microalbum/Creatinine Ratio Ur 6.2 ug/mg cr (<30)
== END 2023-10-05 10:03 | disposition home or self-care (01) ==
LOC: HO.LAB 10:02
PROVIDERS: PCP Physician Assistant; Visit Provider Internal Medicine
DX: E11.65 Type 2 diabetes mellitus with hyperglycemia (principal); E78.00 Pure hypercholesterolemia, unspecified; G47.00 Insomnia, unspecified
CPT/HCPCS: 36415; 80053; 80061; 81001; 82043; 82570; 82607; 82746; 83036; 83540; 83735; 84439; 84443; 85025; 85045

== ENCOUNTER 2023-11-16 14:52 | Outpatient (AMB) | payer OTHER, SELFPAY ==
[2023-11-16 15:02] VITALS: BP 102/76; PULSE 84; RESP 17; O2SAT 98; BMI 26.3
--- NOTE | 2023-11-16 15:02 | MHC.PC.OV ---
Vital Signs 11/16/23 15:02 Height 5 ft 3 in Weight 148 lb 4 oz BMI 26.3 BP 102/76 Blood Pressure Location Lt brachial Position Sitting Respiration 17 Pulse 84 Pulse Source Pulse Oximeter Pulse Oximetry (%) 98 Oxygen Delivery Method Room Air Intake Visit Reasons: 3 mth follow up lab results Corrections Corporal Required: No Accompanied by: Self / Same As Patient Allergies No Known Allergies [No Known Allergies*] Allergy (Verified 11/16/23 15:25) Medication List - Last Reconciled 11/16/23 by Dickson Hooker PA-C albuterol sulfate 90 mcg/actuation 1 inh inhalation QID 30 days baclofen 5 mg PO BEDTIME 30 days blood-glucose sensor ([employer] G6 Sensor device) As directed change every 10 days docusate sodium (Colace) 100 mg PO BID 7 days glucagon 3 mg/actuation (Baqsimi) 3 mg intranasal ONCE insulin lispro-aabc (Lyumjev U-100 Insulin) infuse up to 100 units per day via insulin pump subcutaneously 3 times a day; insulin pump cartridge trazodone 50 mg PO BEDTIME PRN Tobacco use date assessed: 12/08/22 HPI 3 mth follow up lab results HPI Details Patient is a 28-year-old male here today for three-month follow-up visit. Patient has a past medical history significant for type 1 diabetes, hyperlipidemia and insomnia. .. Type 1 diabetes: Continues on insulin. His followed by Endocrinology. Most recent A1c is 7.5. He does admit to forgetting to bolus before his meals which causes some hyperglycemia. Otherwise reports he has been feeling well without any polydipsia, polyuria .. Hyperlipidemia: Patient continues to control his hyperlipidemia with diet control. Most recent LDL below 100. . Insomnia: Has been started on trazodone which has significantly helped him with his sleep and his mood during the day. COUNT INCLUDES THE [facility] Medical History Asthma Diabetes mellitus type 1, uncontrolled Surgical History No history of previous surgery Family History Father Seizures Hypertension Diabetes CVD (cardiovascular disease) Mother Breast cancer Other Mental health disorder Social History Household Members: Family Housing: Apartment Do you presently have visiting nurse or other home services: No Patient Tobacco Use Status: Never used Tobacco e-Cigarette/Vaping Use: Never Used Second Hand Smoke Exposure: No Substance Use Type: Marijuana service: No Current occupational status: employed Cognitive needs: No Hearing needs: No Vision needs: No Questionnaire PHQ-9 Over the last 2 weeks, how often have you been bothered by any of the following problems? 1. Little interest or pleasure in doing things: not at all 2. Feeling down, depressed, or hopeless: not at all 3. Trouble falling or staying asleep, or sleeping too much: not at all 4. Feeling tired or having little energy: not at all 5. Poor appetite or overeating: not at all 6. Feeling bad about yourself - or that you are a failure or have let yourself or your family down: not at all 7. Trouble concentrating on things, such as reading the newspaper or watching television: not at all 8. Moving or speaking so slowly that other people could have noticed. Or the opposite - being so fidgety or restless that you have been moving around a lot more than usual: not at all 9. Thoughts that you would be better off or of hurting yourself in some way: not at all Total score: 0 Depression Screening Interpretation: Negative Depression Screening Done: Yes 58947 - PHQ-9 Billing: Yes Source: Developed by Drs. Sal Ureña, Loly Nash, Elijah Del Cid and colleagues, with an educational kit from [employer]. Thrive Questionnaire Date Thrive assessed: 11/16/23 I am a: Patient What is your living situation today?: I have a steady place to live Within the past 12 months, did the food you bought not last and you didn't have the money to get more?: Never true Within the past 12 months, did you worry whether your food would run out before you got money to buy more?: Never true Do you have trouble paying for medicines?: No Do you have trouble getting transportation to medical appointments?: No Do you have trouble paying your heating and electricity bill?: No Do you have trouble taking care of your child, family member or friend?: No Do you have trouble with day-to-day activities such as bathing, preparing meals, shopping, managing finances, etc.?: No Are you currently unemployed and looking for a job?: No Are you interested in more education?: No Please select the resources that you would like help with: None Currently or been in a relationship where the following occur: no concerns reported THRIVE Score: 0 AUDIT C Alcohol Use Questionnaire (AUDIT-C) 1. How often do you have a drink containing alcohol?: 2-4 times a month 2. How many drinks containing alcohol do you have on a typical day when you are drinking?: 3 or 4 3. How often do you have six or more drinks on one occasion?: Never Total Score: 3 RAUL-7 AMB Questionnaire RAUL-7 Date RAUL - 7 assessed: 11/16/23 Feeling nervous, anxious, or on edge: 0 = Not at all Not being able to stop or control worryin = Not at all Worrying too much about different things: 0 = Not at all Trouble relaxin = Not at all Being so restless that it is hard to sit still: 0 = Not at all Becoming easily annoyed or irritable: 0 = Not at all Feeling afraid as if something awful might happen: 0 = Not at all Total RAUL-7 score (0-4 normal; 5-9 mild; 10-14 moderate; 15-21 severe): 0 Source: Developed by Drs. Sal Ureña, Loly Nash, Elijah Del Cid and colleagues, with an educational kit from [employer]. RAUL-7 Assessment Billing RAUL-7 Assessment Tool: RAUL-7 Assessment 93752 Review of Systems Const Denies headache(s) Eyes Denies loss of vision ENT Denies vertigo, Denies dizziness, Denies headache(s) and Denies sore throat Card Denies chest pain, Denies leg edema and Denies lightheadedness Resp Denies cough, Denies hemoptysis and Denies wheezing GI Denies abdominal pain, Denies melena, Denies constipation, Denies diarrhea and Denies vomiting Denies dysuria, Denies urinary frequency and Denies urinary urgency Musc Denies arthralgias, Denies joint swelling, Denies numbness and Denies tingling Neuro Denies Abnormal speech present, Denies behavioral changes, Denies vertigo, Denies dizziness, Denies headache(s), Denies loss of vision, Denies memory loss, Denies numbness and Denies tingling Psych Denies anxiety, Denies behavioral changes, Denies depression, Denies memory loss and Denies panic attacks Gael/Lymph Denies easy bleeding and Denies easy bruising Aller/Immun Denies wheezing Physical exam (Primary Care) Vital Signs: Last Vital Signs Pulse 84 11/16/23 15:02 Resp 17 11/16/23 15:02 BP 102/76 11/16/23 15:02 Pulse Ox 98 11/16/23 15:02 Oxygen Delivery Method Room Air 11/16/23 15:02 BMI result Body Mass Index 26.3 Tobacco/Smoking Status: Tobacco use Status Tobacco use date assessed 12/08/22 11/16/23 15:03 Patient Tobacco Use Status Never used Tobacco 11/16/23 15:03 e-Cigarette/Vaping Use Never Used 11/16/23 15:03 PHQ-9: PHQ-9 Score PHQ-9: Total score 0 11/16/23 15:27 Depression Screening Interpretation: Negative Thrive Assessment: Date of Thrive Assessment Date Thrive assessed 11/16/23 11/16/23 15:08 Currently or been in a relationship where the following occur: no concerns reported Const General: healthy appearing, no acute distress, alert and awake Nutritional Appearance: well nourished Orientation/consciousness: oriented to person, oriented to place and oriented to time HENMT Ears: TM's normal bilaterally General nose exam: Normal nasal mucous membranes and turbinates present Eyes Conjunctivae: conjunctivae normal Sclerae: sclerae normal Pupils: Equal, round and reactive pupils present Neck Neck: Yes no lymphadenopathy and Yes no JVD Thyroid: Thyroid normal Carotids: no bruits Resp Effort & Inspection: normal respiratory effort and not tachypneic Auscultation: no crackles, no rales, no rhonchi and no wheezes Cardio Rate: regular rate Rhythm: regular rhythm Heart sounds: no murmurs and normal S1 and S2 GI Palpation (GI): Soft to palpation, nontender, no hepatomegaly and no splenomegaly Auscultation: normal bowel sounds Skin General skin exam: no rashes or lesions noted and dry skin Neuro General: oriented to person, oriented to place and oriented to time Cranial nerves: Yes Equal, round and reactive pupils present Speech: No Abnormal speech present Gait exam (Neuro): Normal gait present Motor exam (neuro): no tremor noted Extrem Right upper extremity: full ROM Left upper extremity: full ROM Right lower extremity: full ROM; no edema Left lower extremity: full ROM; no edema Psych Mental Status: mental status grossly normal Speech and movement: Normal speech and movement present Affect: normal affect Attitude: cooperative Thought process: Normal thought process present Assessment and Plan Assessment & Plan (1) Diabetes mellitus type 1, uncontrolled: Comment: Eye and lasik Code(s): E10.65 - Type 1 diabetes mellitus with hyperglycemia Qualifiers: Glycemic state: with hyperglycemia Qualified Code(s): E10.65 - Type 1 diabetes mellitus with hyperglycemia Plan: Followed by [facility]. Continues with the use of insulin pump. He does report he forgets to bolus before meals which causes him some hyperglycemia. He will try to do better. Does follow an eye doctor and does report some retinal hemorrhaging. Recent A1c is 7.5. Goal A1c is to remain below 7.0 (2) Hypercholesterolemia: Code(s): E78.00 - Pure hypercholesterolemia, unspecified Plan: Most recent fasting lipid panel showing excellent control of his total cholesterol and LDL. Goal LDL is to remain below 100. Orders: Orders Lipid Panel 6 Months E78.00 - Pure hypercholesterolemia, unspecified Comprehensive [place]. Panel Fast 6 Months E10. - Type 1 diabetes mellitus with hyperglycemia Complete Blood Count no Diff 6 Months E10 - Type 1 diabetes mellitus with hyperglycemia Medications: Changed From trazodone 50 mg PO BEDTIME PRN 30 tabs 3RF sleep G47.00 - Insomnia, unspecified To trazodone 50 mg PO BEDTIME PRN 90 tabs 2RF sleep 90 days G47.00 - Insomnia, unspecified Discontinued baclofen Discontinued Reason: Doctor's Order 5 mg PO BEDTIME 30 tabs 3RF 30 days M54.50 - Low back pain, unspecified albuterol sulfate 90 mcg/actuation Discontinued Reason: Doctor's Order 1 inh inhalation QID 8.5 grams 0RF 30 days J40 - Bronchitis, not specified as acute or chronic, U07.1 - COVID-19 Coding Level of Care Code Est Pt Level 4 (32921) Diagnoses Uncontrolled type 1 diabetes mellitus with hyperglycemia E10 Glycemic state: with hyperglycemia Hypercholesterolemia E78.00 Additional Codes RAUL-7 Assessment Billing - RAUL-7 Assessment Tool: RAUL-7 Assessment 71403 ([id number])
== END 2023-11-16 15:37 | disposition home or self-care (01) ==
PROVIDERS: PCP Physician Assistant; Visit Provider Physician Assistant
DX: E10.65 Type 1 diabetes mellitus with hyperglycemia (principal); E78.00 Pure hypercholesterolemia, unspecified
CPT/HCPCS: 99214

== ENCOUNTER 2024-03-29 15:35 | Outpatient (AMB) | payer OTHER, SELFPAY ==
[2024-03-29 15:54] VITALS: BP 122/86; PULSE 75; BMI 28.5
--- NOTE | 2024-03-29 15:54 | A.OFFVIS_ITS ---
Vital Signs 03/29/24 15:54 Height 5 ft 3 in Weight 160 lb 14.999 oz BMI 28.5 BP 122/86 Blood Pressure Location Rt brachial Position Sitting Pulse 75 Pulse Source Pulse Oximeter Intake Visit Reasons: Type 1 DM/CONFIRMED Intake Note: New Patient presents today to established treatment for Diabetes Type 1: Most recent Eye Exam: DUE Most recent Podiatry Exam: Does not see a Office Automation Clerk Most recent HbA1c: 7.5%, 03/19/2024 Random Glucose- 234 mg/dL, Today Phlebotomy Program Coordinator Required: No Accompanied by: Self / Same As Patient Allergies No Known Allergies [No Known Allergies*] Allergy (Verified 11/16/23 15:25) HPI Comments Details: Patient is 28 yo male with DM type 1 diagnosed at 6 years old here for continued management of diabetes. He is currently on Tandem T:slim X2 pump and Dexcom G6 sensor he reports that the insulin pump has been giving him too much insulin when he puts in his full carbs in the afternoon so often times he is not entering carbs waits till he is high then enters the carbs and subsequently drops low Dexcom average glucose: [178 ] Glucose Managment indicator 7.6[ ] % TIme in range: [ 12] % very high (above 250) [ 30] % high ?(181-250) [ 57] % in range ?(70-180] [1 ] % low (69-55) [ 0.1] % ?very low (below 54) [59 ] Standard Deviation [33 ] % Coefficent of variation control IQ 90% of time Basal rate(s) (units/hour) : 12 AM? to 5 AM? 1.0 units / hr 5 AM to 11 AM? 1.2 units / hr 11 AM? to 4 PM? 0.95 units / hr 4 PM to 9 PM 0.9 units / hr 9 PM to 12 AM 1.1 units / hr Bolus setting Insulin Carbohydrate Ratio (s) 12 AM? to 11 AM? 1:9? 5 AM to 11 AM 1:5 New 1:8 11 AM to 2 PM 1:5 1:8 2 PM to 12 AM 1:5 1:8 Correction Factor / Sensitivity Factor 12 AM? to 11 AM? 1:30 11 AM to 2 PM 1:35 4 PM 9 PM 1:30 9 PM to 12 AM 1:32 Active Insulin Time:? 3? hours Target(s): 12 AM? to 12 AM? 120 mg/dL PFSH Medical History Asthma Diabetes mellitus type 1, uncontrolled Surgical History No history of previous surgery Family History Father Seizures Hypertension Diabetes CVD (cardiovascular disease) Mother Breast cancer Other Mental health disorder Social History Household Members: Family Housing: Apartment Do you presently have visiting nurse or other home services: No Patient Tobacco Use Status: Never used Tobacco e-Cigarette/Vaping Use: Never Used Second Hand Smoke Exposure: No Substance Use Type: Marijuana service: No Current occupational status: employed Cognitive needs: No Hearing needs: No Vision needs: No Physical Exam Vital Signs: Last Vital Signs Pulse 75 03/29/24 15:54 BP 122/86 03/29/24 15:54 BMI result Body Mass Index 28.5 Absence of Cushingoid features. Absence of acromegalic features. Neck exam reveals nl size thyroid about 15 gms. No thyroid nodules palpable. No carotid bruits present. Lungs CTA. Heart S1 S2, Reg R/R. No M/R/ G. Skin exam reveals absence of vitiligo or acanthosis nigricans. Abdominal exam reveals Soft NT/ND with NA BS. No organomegaly present. Extrem Other: Visual exam of foot performed. No ulcerations or open lesions. No onchomycosis, no callouses.Pulses 2 + distally. Sensation intact to monofilament exam. Vibratory sensation sensed 10 seconds in right, 10 seconds in left with 128 Hz tuning fork Results AMB Hemoglobin A1c AMB Hemoglobin A1c 7.5 % Last Edit by JOSH Best on 03/29/24 16:13 Results Reviewed Results Reviewed: Laboratory Last Values Glucose (Clinic) 234 mg/dL (60-115) H 03/29/24 16:00 Hgb A1c (Clinic) 7.5 % (4.0-6.0) H 03/29/24 16:10 Laboratory Tests 04/06/23 10/05/23 13:22 10:23 Potassium 3.6 Creatinine 1.11 Random Glucose 226 H Hgb A1c (Clinic) 7.7 H Hemoglobin A1c % 7.5 H Calcium 9.7 Magnesium 1.9 AST 20 ALT 32 Albumin 4.4 Triglycerides 50 Cholesterol 155 LDL Cholesterol, Calc 88 HDL Cholesterol 57 TSH 0.75 Free T4 0.88 Assessment & Plan Assessment & Plan (1) Diabetes mellitus type 1, uncontrolled: Code(s): E10.65 - Type 1 diabetes mellitus with hyperglycemia Category: Medical Qualifiers: Glycemic state: with hyperglycemia Qualified Code(s): E10.65 - Type 1 diabetes mellitus with hyperglycemia Plan: Type 1 diabetic with A1cs consistently in the mid sevens. He has not been bolusing for his lunch and dinner meals until he runs high as he is fearful that he will run low and then due to extra high correction does tend to drop below 70. Today we adjusted the insulin carb ratio so that he does not get as much insulin for lunch and supper and he will work on consistently entering his carbs for his meals. Patient schedule eye exam Teaching done today: The patient was counseled to always carry a source of sugar and on the rule of 15's: Take 3 glucose tablets and repeat again in 15 minutes if blood sugar is not in normal range. Continue to repeat every 15 minutes until blood sugar is normal. Symptoms of DKA were reviewed: early: frequent urination, dry mouth, ketones in the urine, severe symptoms: abdominal pain, nausea, vomiting and weakness. It is important to hydrate with sugar free liquids every 30 minutes and bring the sugars down to normal levels. The patient was counseled to achieve a target A1C of 7% (154 avg). Fasting blood sugars should be 90-130 in the morning and less than 180 two hours after meals. Reviewed the relationship between poor diabetic control and the developement of complications Orders: Orders AMB Hemoglobin A1c 03/29/24 E11.9 - Type 2 diabetes mellitus without complications Coding Level of Care Code Est Pt Level 5 (09360) Complex EM visit Add On G2211 Diagnoses Uncontrolled type 1 diabetes mellitus with hyperglycemia E10.65 Glycemic state: with hyperglycemia
[2024-03-29 16:06] LABS: Glucose, Whole Blood 234 mg/dL (60-115)
== END 2024-03-29 16:30 | disposition home or self-care (01) ==
PROVIDERS: PCP Physician Assistant; Visit Provider Nurse Practitioner Adult Health
DX: E10.65 Type 1 diabetes mellitus with hyperglycemia (principal)
CPT/HCPCS: 99214

== ENCOUNTER → 2024-03-29 15:35 | Outpatient (BNVA) | payer OTHER, SELFPAY | PROVIDERS: PCP Physician Assistant; Visit Provider Nurse Practitioner Adult Health | DX: E10.65 Type 1 diabetes mellitus with hyperglycemia (principal) | CPT/HCPCS: 82947; 83036 ==

== ENCOUNTER 2024-05-22 15:07 | Outpatient (AMB) | payer OTHER, SELFPAY ==
--- NOTE | 2024-05-22 15:11 | MHC.PC.OV ---
Vital Signs 05/22/24 15:15 Height 5 ft 3 in Weight 162 lb 4 oz BMI 28.7 BP 110/80 Blood Pressure Location Lt brachial Position Sitting Pulse 86 Pulse Source Pulse Oximeter Pulse Oximetry (%) 98 Oxygen Delivery Method Room Air Intake Visit Reasons: Annual Exam Intake Note: Patient is here today for a physical. 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 Required: No Accompanied by: Self / Same As Patient Allergies No Known Allergies [No Known Allergies*] Allergy (Verified 05/22/24 15:19) Medication List - Last Reconciled 05/22/24 by Dickson Hooker PA-C blood-glucose sensor (Dexcom G6 Sensor device) DIRECTED CHANGE EVERY 10 DAYS blood-glucose sensor (Dexcom G7 Sensor device) As directed every 10 days blood-glucose transmitter (Dexcom G6 Transmitter device) USE DIRECTED 1 EVERY 3 MONTHS (4 A YEAR) Dexcom G7 Non Linear Editor (blood-glucose meter,continuous) As directed for use with insulin pump NS docusate sodium (Colace) 100 mg PO BID 7 days glucagon 3 mg/actuation (Baqsimi) 3 mg intranasal ONCE insulin lispro-aabc (Lyumjev U-100 Insulin) infuse up to 100 units per day via insulin pump subcutaneously; insulin pump cartridge trazodone 50 mg PO BEDTIME PRN 90 days Tobacco use date assessed: 05/22/24 Dental Screening Dental Screen Date: 05/22/24 Did you have a dental visit in the last 12 months?: Yes Did you have a dental problem in the last 6 months where you did not have access to dental care?: No Was dental information given to patient?: Patient has dentist HPI Annual Exam HPI Details Patient is a 28-year-old male here today for a routine annual physical Patient has a past medical history significant for type 1 diabetes, hyperlipidemia and insomnia. .. Type 1 diabetes: Continues on insulin. His followed by [facility]. Most recent A1c is 7.5. He is due for a new insulin pump that may have better features for him. Otherwise reports he has been feeling well without any polydipsia, polyuria. He does report seeing an steam crane operator though will call to see an shell fisherman for full dilated diabetic eye exam. Of note has a history of retinal hemorrhage. .. Hyperlipidemia: Patient continues to control his hyperlipidemia with diet control. Most recent LDL below 100. . Insomnia: Has been started on trazodone which has significantly helped him with his sleep and his mood during the day Vaccines: Needs tetanus vaccine. Up to date with COVID. Laboratory Tests 08/17/22 10/05/23 10/05/23 14:05 09:25 10:23 RBC 5.16 Hgb A1c (Clinic) Urine Microalbumin 7.0 16.0 03/29/24 16:10 RBC Hgb A1c (Clinic) 7.5 H Urine Microalbumin [facility] Medical History Asthma Diabetes mellitus type 1, uncontrolled Surgical History No history of previous surgery Family History Father Seizures Hypertension Diabetes CVD (cardiovascular disease) Mother Breast cancer Other Mental health disorder Social History (Updated 05/22/24 @ 15:23 by Dickson Hooker PA-C) Household Members: Family Housing: Apartment Do you presently have visiting nurse or other home services: No Alcohol intake: current Alcohol intake frequency: a few times a month Alcohol type: beer Patient Tobacco Use Status: Never used Tobacco e-Cigarette/Vaping Use: Never Used Second Hand Smoke Exposure: No Substance Use Type: Marijuana service: No Current occupational status: employed Current occupation: [employer] Cognitive needs: No Hearing needs: No Vision needs: No Questionnaire PHQ-9 Over the last 2 weeks, how often have you been bothered by any of the following problems? 1. Little interest or pleasure in doing things: not at all 2. Feeling down, depressed, or hopeless: not at all 3. Trouble falling or staying asleep, or sleeping too much: more than half the days 4. Feeling tired or having little energy: several days 5. Poor appetite or overeating: not at all 6. Feeling bad about yourself - or that you are a failure or have let yourself or your family down: not at all 7. Trouble concentrating on things, such as reading the newspaper or watching television: not at all 8. Moving or speaking so slowly that other people could have noticed. Or the opposite - being so fidgety or restless that you have been moving around a lot more than usual: not at all 9. Thoughts that you would be better off or of hurting yourself in some way: not at all Total score: 3 Depression Screening Interpretation: Positive Depression Screening Follow-up: Existing condition Depression Screening Done: Yes 56794 - PHQ-9 Billing: Yes Source: Developed by Drs. Sal Ureña, Loly Nash, Elijah Del Cid and colleagues, with an educational kit from [employer]. Thrive Questionnaire Date Thrive assessed: 05/22/24 I am a: Patient What is your living situation today?: I have a steady place to live Within the past 12 months, did the food you bought not last and you didn't have the money to get more?: Never true Within the past 12 months, did you worry whether your food would run out before you got money to buy more?: Never true Do you have trouble paying for medicines?: No Do you have trouble getting transportation to medical appointments?: No Do you have trouble paying your heating and electricity bill?: No Do you have trouble taking care of your child, family member or friend?: No Do you have trouble with day-to-day activities such as bathing, preparing meals, shopping, managing finances, etc.?: No Are you currently unemployed and looking for a job?: No Are you interested in more education?: No Please select the resources that you would like help with: None Currently or been in a relationship where the following occur: No concerns reported THRIVE Score: 0 AUDIT C Alcohol Use Questionnaire (AUDIT-C) 1. How often do you have a drink containing alcohol?: 2-4 times a month 2. How many drinks containing alcohol do you have on a typical day when you are drinking?: 5 or 6 3. How often do you have six or more drinks on one occasion?: Less than monthly Total Score: 5 RAUL-7 AMB Questionnaire RAUL-7 Date RAUL - 7 assessed: 05/22/24 Feeling nervous, anxious, or on edge: 0 = Not at all Not being able to stop or control worryin = Not at all Worrying too much about different things: 0 = Not at all Trouble relaxin = Not at all Being so restless that it is hard to sit still: 0 = Not at all Becoming easily annoyed or irritable: 0 = Not at all Feeling afraid as if something awful might happen: 0 = Not at all Total RAUL-7 score (0-4 normal; 5-9 mild; 10-14 moderate; 15-21 severe): 0 Source: Developed by Drs. Sal Ureña, Loly Nash, Elijah Del Cid and colleagues, with an educational kit from [employer]. RAUL-7 Assessment Billing RAUL-7 Assessment Tool: RAUL-7 Assessment 46444 Review of Systems Const Denies body aches, Denies chills, Denies excessive sweating, Denies fatigue, Denies fever(s) and Denies headache(s) Eyes Denies blurry vision ENT Denies dysphagia, Denies vertigo, Denies dizziness, Denies headache(s), Denies hearing loss and Denies tinnitus Card Denies chest pain, Denies chest pain with activity, Denies syncope, Denies irregular heart rhythm and Denies dyspnea Resp Denies chest congestion, Denies cough, Denies hemoptysis, Denies dyspnea and Denies wheezing GI Denies abdominal pain, Denies melena, Denies hematochezia, Denies coffee ground emesis, Denies dysphagia, Denies diarrhea, Denies nausea and Denies vomiting Denies difficulty urinating, Denies dysuria, Denies urinary frequency, Denies urinary hesitancy and Denies urinary urgency Musc Denies arthralgias, Denies limited range of motion, Denies muscle cramps and Denies muscle weakness Skin/Breast Denies rash and Denies skin ulcer Neuro Denies Abnormal speech present, Denies confusion, Denies vertigo, Denies dizziness, Denies syncope, Denies headache(s), Denies memory loss and Denies seizure-like activity Psych Denies anxiety, Denies confusion, Denies depression, Denies memory loss, Denies panic attacks and Denies paranoia Endo Denies excessive sweating, Denies fatigue, Denies flushing, Denies polydipsia and Denies polyuria Aller/Immun Denies wheezing Physical exam (Primary Care) Vital Signs: Last Vital Signs Pulse 86 05/22/24 15:15 BP 110/80 05/22/24 15:15 Pulse Ox 98 05/22/24 15:15 Oxygen Delivery Method Room Air 05/22/24 15:15 BMI result Body Mass Index 28.7 Tobacco/Smoking Status: Tobacco use Status Tobacco use date assessed 05/22/24 05/22/24 15:14 Patient Tobacco Use Status Never used Tobacco 05/22/24 15:23 e-Cigarette/Vaping Use Never Used 05/22/24 15:23 PHQ-9: PHQ-9 Score PHQ-9: Total score 3 05/22/24 15:43 Depression Screening Interpretation: Positive Depression Screening Follow-up: Existing condition Thrive Assessment: Date of Thrive Assessment Date Thrive assessed 05/22/24 05/22/24 15:14 Currently or been in a relationship where the following occur: No concerns reported Const General: cooperative, comfortable, no acute distress, alert and awake; No confusion Orientation/consciousness: oriented to person, oriented to place, patient oriented x3 and No confusion HENMT Head: Yes normocephalic Ears: external ears normal and TM's normal bilaterally Face and sinus: No sinus tenderness Mouth: Normal oral and palatal mucosa present and tongue normal Teeth and gingiva: dentition normal and gingiva normal Throat: Yes posterior oropharynx normal, Yes tonsils normal and Yes uvula midline Eyes Conjunctivae: conjunctivae normal Sclerae: sclerae normal Pupils: Equal, round and reactive pupils present EOM: EOMs intact bilaterally Direct Ophthalmoscopy: No no photophobia Neck Neck: Yes no lymphadenopathy, No tender and Yes no JVD Thyroid: Thyroid normal Carotids: no bruits Chest Chest palpation & inspection: no tenderness Resp Effort & Inspection: normal respiratory effort, no audible wheezes, not labored and no stridor Auscultation: no crackles, no rales, no rhonchi and no wheezes Cardio Jugular venous distension: no JVD Rate: regular rate, not bradycardic and not tachycardic Rhythm: regular rhythm Bruits: no carotid bruits Peripheral pulses: Peripheral pulses 2+ throughout GI Inspection: Yes normal to inspection, No abdominal wall ecchymosis and No visible herniation Palpation (GI): Soft to palpation, nontender, no guarding, not rigid and No hepatosplenomegaly present Auscultation: normoactive bowel sounds General: Yes no CVA tenderness Back/Spine/Pelvis Back: no CVA tenderness and No back tenderness Cervical Spine: cervical ROM normal Thoracic/Lumbar Spine: thoracic and lumbar spine normal to inspection, straight leg raise negative bilaterally, No thoraco-lumbar ROM limited and No lumbar spinal tenderness Skin Lesions: no lesions Rashes: no rashes Wounds: no wounds Neuro General: oriented to person, oriented to place, patient oriented x3, CN's II-XI intact bilaterally and No confusion Cranial nerves: Yes Equal, round and reactive pupils present and Yes Normal accommodation reflex present Cognition (Neuro): normal cognition Speech: No Abnormal speech present Gait exam (Neuro): Normal gait present Motor exam (neuro): 5/5 motor strength present throughout Extrem Right upper extremity: full ROM; no cyanosis Left upper extremity: full ROM; no cyanosis Right lower extremity: no edema Left lower extremity: no edema Psych Appearance: grossly normal Mental Status: mental status grossly normal Affect: normal affect Attitude: cooperative Thought process: Normal thought process present Immunizations Boostrix Tdap 2.5 Lf unit-8 mcg-5 Lf/0.5 mL intramuscular syringe Performing Provider: Dickson Hooker PA-C [facility] Administered by: CHIRAG Garcia on 05/22/24 15:43 Dose Route Admin Location Dispensed Lot Number Expiration Date NDC Pipe Fittings Molder 0.5 mL IM Left Deltoid 0.5 mL [id number] 06/03/26 [id number] [employer] VIS Given Date VIS Provided VIS Publication Date 05/22/24 Single Vaccine 21 Eligibility Eligibility Date Funding Source Not [facility] Eligible 05/22/24 Private Assessment and Plan Assessment & Plan (1) Annual physical exam: Code(s): Z00.00 - Encounter for general adult medical examination without abnormal findings (2) Diabetes mellitus type 1, uncontrolled: Code(s): E10.65 - Type 1 diabetes mellitus with hyperglycemia Qualifiers: Glycemic state: with hyperglycemia Qualified Code(s): E10.65 - Type 1 diabetes mellitus with hyperglycemia Plan: Followed by [facility]. Continues with the use of insulin pump. He is eager to get a new insulin pump with new features. Does follow an eye doctor and does report some retinal hemorrhaging. Recent A1c is 7.5. Goal A1c is to remain below 7.0 (3) Hypercholesterolemia: Code(s): E78.00 - Pure hypercholesterolemia, unspecified Plan: Most recent fasting lipid panel showing excellent control of his total cholesterol and LDL. Goal LDL is to remain below 100. (4) Insomnia: Code(s): G47.00 - Insomnia, unspecified Qualifiers: Insomnia type: primary Qualified Code(s): F51.01 - Primary insomnia Plan: Has been sleeping quite well with trazodone. Orders: Orders Lipid Panel 05/22/24 E78.00 - Pure hypercholesterolemia, unspecified Comprehensive [place]. Panel Fast 05/22/24 E10.65 - Type 1 diabetes mellitus with hyperglycemia Complete Blood Count no Diff 05/22/24 E10.65 - Type 1 diabetes mellitus with hyperglycemia TDaP Immunization 05/22/24 E10.65 - Type 1 diabetes mellitus with hyperglycemia, Z23 - Encounter for immunization Microalbumin, Random (w Creat) 05/22/24 E10.65 - Type 1 diabetes mellitus with hyperglycemia Medications: Refilled trazodone 50 mg PO BEDTIME PRN 90 tabs 2RF sleep 90 days G47.00 - Insomnia, unspecified Patient Instructions: Goal: A1c to be below 7 0, LDL to be below 100 Barriers: Adherence to physical activities and healthy eating habits Coding Level of Care Code Est Pt Prev Care 18-39y(77869) Diagnoses Annual physical exam Z00.00 Uncontrolled type 1 diabetes mellitus with hyperglycemia E10.65 Glycemic state: with hyperglycemia Hypercholesterolemia E78.00 Primary insomnia F51.01 Insomnia type: primary Additional Codes RAUL-7 Assessment Billing - RAUL-7 Assessment Tool: RAUL-7 Assessment [id number] ([id number])
[2024-05-22 15:15] VITALS: BP 110/80; PULSE 86; O2SAT 98; BMI 28.7
== END 2024-05-22 15:40 | disposition home or self-care (01) ==
PROVIDERS: PCP Physician Assistant; Visit Provider Physician Assistant
DX: Z23 Encounter for immunization (principal)
CPT/HCPCS: 90471; 90715; 99395

== ENCOUNTER → 2024-06-07 15:05 | Outpatient (AMB) | payer OTHER, SELFPAY ==
--- NOTE | 2024-06-07 15:22 | MHC.AMDMED ---
Intake Intake Visit Reasons: DM/CONFIRMED Allergies No Known Allergies [No Known Allergies*] Allergy (Verified 05/22/24 15:19) HPI Comprehensive Diabetes Asmnt Most Recent Diabetes Results: Microalb/Creat Ratio 6.2 ug/mg cr (<30) 10/05/23 Cholesterol 155 mg/dL (<200) 10/05/23 HDL Cholesterol 57 mg/dL (>40) 10/05/23 Triglycerides 50 mg/dL (<150) 10/05/23 Creatinine 1.11 mg/dL (0.5-1.4) 10/05/23 Blood Urea Nitrogen 17 mg/dL (9-16) H 10/05/23 Sodium 135 mmol/L (135-145) 10/05/23 Potassium 3.6 mmol/L (3.3-5.1) 10/05/23 Chloride 100 mmol/L (96-108) 10/05/23 Carbon Dioxide 26 mmol/L (22-29) 10/05/23 Calcium 9.7 mg/dL (8.4-10.2) 10/05/23 AST 20 U/L (5-37) 10/05/23 ALT 32 U/L (0-40) 10/05/23 Total Protein 7.7 g/dL (6.5-8.0) 10/05/23 Albumin 4.4 g/dL (3.5-5.0) 10/05/23 [facility] Medical History Asthma Diabetes mellitus type 1, uncontrolled Surgical History No history of previous surgery Family History Father Seizures Hypertension Diabetes CVD (cardiovascular disease) Mother Breast cancer Other Mental health disorder Social History (Updated 05/22/24 @ 15:23 by Dickson Hooker PA-C) Household Members: Family Housing: Apartment Do you presently have visiting nurse or other home services: No Alcohol intake: current Alcohol intake frequency: a few times a month Alcohol type: beer Patient Tobacco Use Status: Never used Tobacco e-Cigarette/Vaping Use: Never Used Second Hand Smoke Exposure: No Substance Use Type: Marijuana service: No Current occupational status: employed Current occupation: [employer] Cognitive needs: No Hearing needs: No Vision needs: No Assessment & Plan Assessment & Plan (1) Diabetes mellitus type 1, uncontrolled: Code(s): E10.65 - Type 1 diabetes mellitus with hyperglycemia Qualifiers: Glycemic state: with hyperglycemia Qualified Code(s): E10.65 - Type 1 diabetes mellitus with hyperglycemia Plan: Patient presents for pump training for iLet pump and CGM training today. The following topics were reviewed today: -Pump therapy basic concepts: Basal/bolus -Device settings: Bluetooth/mobile connection (if applicable), correct date and time, sound volume -CGM settings(if integrated system): CGM graft views and trend arrows, alerts and alarms, Start new sensor Insulin delivery settings Instructed patient to only use room temperature insulin, how to load cartridge or fill pod, with insulin. Fill tubing and cannula (if applicable) Inserting infusion set or starting pod Troubleshooting after starting new pod or inserting new insulin set: Occlusion, adhesive tape sensitivity, redness Check BG 2 hours after site change Safety information: Importance of a backup plan, for manual injections, proper prescriptions and emergency supplies ketone strips, and rules for testing for ketones Patient was able to insert insulin set today without difficulty. Patient understands the basic concepts of pump therapy, how to give insulin for meals and snacks, how to troubleshoot for hyper and hypoglycemia. Patient will follow up with CDE as instructed Patient will contact CDE with questions or concerns, patient given IT number to support in any technical issues related to insulin pump Portions of this note were created using voice recognition software, please excuse any words or phrases that may have been misinterpreted. 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
== END ==
PROVIDERS: PCP Physician Assistant; Visit Provider Registered Nurse Diabetes Educator
DX: E10.65 Type 1 diabetes mellitus with hyperglycemia (principal)

== ENCOUNTER → 2024-06-07 15:05 | Outpatient (BNVA) | payer OTHER, SELFPAY | PROVIDERS: PCP Physician Assistant; Visit Provider Registered Nurse Diabetes Educator | DX: Z46.81 Encounter for fitting and adjustment of insulin pump (principal); E10.65 Type 1 diabetes mellitus with hyperglycemia | CPT/HCPCS: 99211 ==

== ENCOUNTER 2024-09-17 15:37 | Outpatient (AMB) | payer BC, SELFPAY ==
--- NOTE | 2024-09-17 15:52 | MHC.AMDMED ---
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 Accompanied by: Self / Same As Patient Allergies No Known Allergies [No Known Allergies*] Allergy (Verified 05/22/24 15:19) HPI Comprehensive Diabetes Asmnt Most Recent Diabetes Results: Microalb/Creat Ratio 6.2 ug/mg cr (<30) 10/05/23 Cholesterol 155 mg/dL (<200) 10/05/23 HDL Cholesterol 57 mg/dL (>40) 10/05/23 Triglycerides 50 mg/dL (<150) 10/05/23 Creatinine 1.11 mg/dL (0.5-1.4) 10/05/23 Blood Urea Nitrogen 17 mg/dL (9-16) H 10/05/23 Sodium 135 mmol/L (135-145) 10/05/23 Potassium 3.6 mmol/L (3.3-5.1) 10/05/23 Chloride 100 mmol/L (96-108) 10/05/23 Carbon Dioxide 26 mmol/L (22-29) 10/05/23 Calcium 9.7 mg/dL (8.4-10.2) 10/05/23 AST 20 U/L (5-37) 10/05/23 ALT 32 U/L (0-40) 10/05/23 Total Protein 7.7 g/dL (6.5-8.0) 10/05/23 Albumin 4.4 g/dL (3.5-5.0) 10/05/23 [facility] Medical History Asthma Diabetes mellitus type 1, uncontrolled Surgical History No history of previous surgery Family History Father Seizures Hypertension Diabetes CVD (cardiovascular disease) Mother Breast cancer Other Mental health disorder Social History (Updated 05/22/24 @ 15:23 by Dickson Hooker PA-C) Household Members: Family Housing: Apartment Do you presently have visiting nurse or other home services: No Alcohol intake: current Alcohol intake frequency: a few times a month Alcohol type: beer Patient Tobacco Use Status: Never used Tobacco e-Cigarette/Vaping Use: Never Used Second Hand Smoke Exposure: No Substance Use Type: Marijuana service: No Current occupational status: employed Current occupation: [employer] Cognitive needs: No Hearing needs: No Vision needs: No Assessment & Plan Assessment & Plan (1) Diabetes mellitus type 1, uncontrolled: Code(s): E10.65 - Type 1 diabetes mellitus with hyperglycemia Qualifiers: Glycemic state: with hyperglycemia Qualified Code(s): E10.65 - Type 1 diabetes mellitus with hyperglycemia Plan: Patient presents for pump training for iLet pump and CGM training today. The following topics were reviewed today: -Pump therapy basic concepts: Basal/bolus -For most effective glucose control bolus prior to meals - Off pump backup insulin plan iLet Alerts: ??? High Alert: 300 mg/dl ??? Low Alert: 75 mg/dl CGM: Above target:33% At target:67% Below target:0.1% Patient's average glucose for the past 14 days 164 mg/dL GMI:7.3% TDD:90 units Basal:37 units Patient target set to 110 mg/dL Overall patient is happy with transitioned to iLet. Discussed with patient the effects of announcing late for meals, if 30 minutes has passed since meal do not announce Patient has a few missed meal announcements. Patient has follow-up appointment with SEISMOGRAPH SUPERVISOR on 09/28/2024 Instructed patient to only use room temperature insulin, how to load cartridge or fill pod, with insulin. Fill tubing and cannula (if applicable) Troubleshooting after starting new pod or inserting new insulin set: Occlusion, adhesive tape sensitivity, redness Check BG 2 hours after site change Reviewed Safety information: Importance of a backup plan, for manual injections, proper prescriptions and emergency supplies ketone strips, and rules for testing for ketones Patient understands the basic concepts of pump therapy, how to give insulin for meals and snacks, how to troubleshoot for hyper and hypoglycemia. Patient will follow up with [facility] as instructed Patient will contact [facility] with questions or concerns, patient given IT number to support in any technical issues related to insulin pump Portions of this note were created using voice recognition software, please excuse any words or phrases that may have been misinterpreted. Coding Level of Care Code Est Pt Level 1 (89564) Diagnoses Uncontrolled type 1 diabetes mellitus with hyperglycemia E10.65 Glycemic state: with hyperglycemia
== END 2024-09-17 16:01 | disposition home or self-care (01) ==
PROVIDERS: PCP Physician Assistant; Visit Provider Registered Nurse Diabetes Educator
DX: E10.65 Type 1 diabetes mellitus with hyperglycemia (principal)

== ENCOUNTER → 2024-09-17 15:37 | Outpatient (BNVA) | payer OTHER, SELFPAY | PROVIDERS: PCP Physician Assistant; Visit Provider Registered Nurse Diabetes Educator | DX: Z46.81 Encounter for fitting and adjustment of insulin pump (principal); E10.65 Type 1 diabetes mellitus with hyperglycemia | CPT/HCPCS: 99211 ==

== ENCOUNTER 2024-10-31 15:35 | Outpatient (AMB) | payer BC, SELFPAY ==
--- NOTE | 2024-10-31 11:10 | A.OFFVIS_ITS ---
Vital Signs 10/31/24 15:43 Height 5 ft 3 in Weight 167 lb 8.821 oz BMI 29.7 BP 112/78 Blood Pressure Location Rt brachial Position Sitting Pulse 96 Pulse Source Pulse Oximeter Intake Visit Reasons: T1DM Intake Note: Patient presents today for a follow-up on Type 1 Diabetes Mellitus: Last Diabetic eye exam was on: DUE Last Podiatry exam was on: Patient does not see a Bellmaker Most recent HbA1c: 6.3%, 10/31/2024 Random Glucose- 171 mg/dL, Today Fibrous Wallboard Inspector Required: No Accompanied by: Self / Same As Patient Allergies No Known Allergies [No Known Allergies*] Allergy (Verified 10/31/24 15:40) Medication List - Last Reconciled 10/31/24 by Dee Tejeda NP blood-glucose sensor (Dexcom G6 Sensor device) DIRECTED CHANGE EVERY 10 DAYS blood-glucose sensor (Dexcom G7 Sensor device) As directed every 10 days blood-glucose transmitter (Dexcom G6 Transmitter device) USE DIRECTED 1 EVERY 3 MONTHS (4 A YEAR) Dexcom G7 Electrolysis Needle Operator (blood-glucose meter,continuous) As directed for use with insulin pump NS docusate sodium (Colace) 100 mg PO BID 7 days glucagon 3 mg/actuation (Baqsimi) 3 mg intranasal ONCE glucagon 1 mg (0.2 mL) subcut ONCE PRN 30 days MDD 2 mg insulin lispro-aabc (Lyumjev U-100 Insulin) Infuse up to 100 units per day via insulin pump subcutaneously daily; insulin pump cartridge trazodone 50 mg PO BEDTIME PRN 90 days HPI Comments Details: 29-year-old type 1 diabetic diagnosed at age 6 when he presented to the ER in DKA on an islet insulin pump. A1c in the office today 6.3%. He is consistently getting good numbers on the pump. Dexcom average glucose: 172 14 day continuous glucose monitor report reviewed Glucose Managment indicator 7.4 % Days with CGM data 95 % TIme in ranges: 7.5 % very high (above 250) 28.6 % high ?(181-250) Sixty-four % in range ?(70-180] 0.1 % low (69-55) 0 % ?very low (below 54) 31.5 % Standard Deviation Interpretation well-controlled diabetes some postprandial excursions when he had a large carb meal which she reported to the pump as large. Total daily dose of insulin 103.8 basal 38.4 Bolus 8.3 on average for breakfast 15.1 for lunch and 12.5 for supper Backup insulin pump plan Lantus 37 units No retinopathy No neuropathy denies numbness tingling pain or cramping in lower extremities does not see podiatry No nephropathy eGFR>60 PFSH Medical History Asthma Diabetes mellitus type 1, uncontrolled Surgical History No history of previous surgery Family History Father Seizures Hypertension Diabetes CVD (cardiovascular disease) Mother Breast cancer Other Mental health disorder Social History Household Members: Family Housing: Apartment Do you presently have visiting nurse or other home services: No Alcohol intake: current Alcohol intake frequency: a few times a month Alcohol type: beer Patient Tobacco Use Status: Never used Tobacco e-Cigarette/Vaping Use: Never Used Second Hand Smoke Exposure: No Substance Use Type: Marijuana service: No Current occupational status: employed Current occupation: [employer] Cognitive needs: No Hearing needs: No Vision needs: No Physical Exam Vital Signs: Last Vital Signs Pulse 96 10/31/24 15:43 BP 112/78 10/31/24 15:43 BMI result Body Mass Index 29.7 Const Other: Absence of Cushingoid features. Absence of acromegalic features. Neck exam reveals nl size thyroid about 15 gms. No thyroid nodules palpable. No carotid bruits present. Lungs CTA. Heart S1 S2, Reg R/R. No M/R G. Skin exam reveals absence of vitiligo or acanthosis nigricans. No edema Visual exam of foot performed. No ulcerations or open lesions. No inter digit maceration or fissuring. No onychomycosis, no callouses. Sensation intact to monofilament exam. Vibratory sensation is normal with 128 Hz tuning fork. Office Procedures Glucose Monitoring Details Details: See [facility] [address] - Glucose monitoring, continuous-physician I&R Procedure code (CPT) selection complete Results AMB Hemoglobin A1c AMB Hemoglobin A1c 6.3 % Last Edit by JOSH Best on 10/31/24 16:20 Results Reviewed Results Reviewed: Laboratory Last Values Glucose (Clinic) 171 mg/dL (60-115) H 10/31/24 15:48 Assessment & Plan Assessment & Plan (1) Diabetes type 1: Code(s): E10.9 - Type 1 diabetes mellitus without complications Category: Medical Plan: see below Plan This is a 29year-old type 1 diabetic diagnosed at age 6 with no known macro/macrovascular complications of diabetes on a tandem insulin pump. Hemoglobin A1c 10/31/24 6.3% Patient was reminded that if he does not have a paired sensor that he needs to check his sugar every 4 hours. The patient had an opportunity to ask questions regarding treatment plan. The patient expressed understanding and agreement with the above treatment plan. The patient is aware they should contact our office by phone for worsening glucose readings or for any low blood sugars which may warrant a change in diabetes medication. Compliance is encouraged with medications and any followup testing/consults which may have been ordered. Orders: Orders AMB Hemoglobin A1c Today E10.65 - Type 1 diabetes mellitus with hyperglycemia AMB Glucose Monitoring Today E10.9 - Type 1 diabetes mellitus without complications Medications: New glucagon until target blood sugar attained 1 mg (0.2 mL) subcut ONCE 30 days PRN 0.4 mL 1RF hypoglycemia MDD 2 mg E10.65 - Type 1 diabetes mellitus with hyperglycemia Discontinued glucagon 3 mg/actuation (Baqsimi) Discontinued Reason: Insurance Denied 3 mg intranasal ONCE 2 ea 5RF Patient Instructions: The patient was counseled to achieve a target A1C of 7% (154 avg). Fasting blood sugars should be 90-130 in the morning and less than 180 two hours after meals. Reviewed the relationship between poor diabetic control and the development of complications. Take 15 carb carbohydrate grams to treat a low sugar (3-4 glucose tablets, half a glass of juice or 15 carbohydrate grams of soft candy such as gummie snacks). Recheck your sugar in 15 minutes and re-treat again with 15 carbohydrate grams if low or still with symptoms. Do not drive a car or operate machinery if you do not know what your blood sugar is, if it is low or in excess of 300. Symptoms of DKA (diabetic ketoacidosis): early: frequent urination, dry mouth, fatigue, feeling ill, severe symptoms: ketones in the urine, abdominal pain, nausea, vomiting and weakness. It is important to hydrate with sugar free liquids every 15-30 minutes and bring the sugars down to normal levels. If you are moderate or severe with ketones or unable to bring glucose to less than 200, go to the emergency room. Troubleshooting after starting new pod or inserting new insulin set: Occlusion, adhesive tape sensitivity, redness Check BG 2 hours after site change Safety information: Importance of a backup plan, for manual injections, proper prescriptions and emergency supplies ketone strips, and rules for testing for ketones The patient was counseled to achieve a target A1C of 7% (154 avg). Fasting blood sugars should be 90-130 in the morning and less than 180 two hours after meals. Reviewed the relationship between poor diabetic control and the development of complications. Coding Level of Care Code Est Pt Level 4 (32502) Complex EM visit Add On G2211 Diagnoses Diabetes type 1 E10.9 CPT Codes Details - CPT: 00677 - Glucose monitoring, continuous-physician I&R ([id number]) Time Spent (min) 35 Comment Reviewing labs/provider notes, glucose sensor/pump reports, face to face, chart doc
[2024-10-31 15:43] VITALS: BP 112/78; PULSE 96; BMI 29.7
[2024-10-31 15:56] LABS: Glucose, Whole Blood 171 mg/dL (60-115)
== END 2024-10-31 16:21 | disposition home or self-care (01) ==
PROVIDERS: PCP Physician Assistant; Visit Provider Nurse Practitioner Adult Health
DX: E10.65 Type 1 diabetes mellitus with hyperglycemia (principal); E10.9 Type 1 diabetes mellitus without complications
CPT/HCPCS: 95251; 99214

== ENCOUNTER → 2024-10-31 15:35 | Outpatient (BNVA) | payer BC, SELFPAY | PROVIDERS: PCP Physician Assistant; Visit Provider Nurse Practitioner Adult Health | DX: E10.9 Type 1 diabetes mellitus without complications (principal); Z96.41 Presence of insulin pump (external) (internal) | CPT/HCPCS: 82947; 83036 ==

== ENCOUNTER 2024-11-17 08:34 | Outpatient (REF) | payer BC, SELFPAY ==
[2024-11-17 10:05] LABS: Hematocrit 42.9 % (42.0-52.0); Hemoglobin 15.3 g/dl (14.0-18.0); Mean Corpuscular HGB Conc 35.7 g/dl (31.0-36.0); Mean Corpuscular Hemoglobin 29.5 pg (27.0-33.0); Mean Corpuscular Volume 82.7 fL (80.0-98.0); Platelet Count 255 X10*3/uL (160-400); Red Blood Count 5.19 X10*6/uL (4.60-5.80); Red Cell Distribution Width 12.3 % (11.0-16.0); White Blood Count 4.5 X10*3/uL (4.8-10.8)
[2024-11-17 10:22] LABS: Alanine Aminotransferase 52 U/L (0-40); Albumin Level 4.2 g/dL (3.5-5.0); Alkaline Phosphatase 63 U/L (39-117); Anion Gap 12 (12-20); Aspartate Amino Transferase 30 U/L (5-37); Bilirubin Total 0.6 mg/dL (0.0-1.0); Blood Urea Nitrogen 15 mg/dL (9-16); Calcium 8.9 mg/dL (8.4-10.2); Carbon Dioxide 25 mmol/L (22-29); Chloride 107 mmol/L (96-108); Cholesterol 162 mg/dL (<200); Estimated Glomerular Filt Rate > 60; Glucose Fasting 102 mg/dL (60-99); HDL Cholesterol 48 mg/dL (>40); LDL Cholesterol Calculated 101 mg/dL (<100); Potassium 4.1 mmol/L (3.3-5.1); Sodium 140 mmol/L (135-145); Total Protein 7.8 g/dL (6.5-8.0); Triglycerides 68 mg/dL (<150)
[2024-11-17 11:00] LABS: Microalbum/Creatinine Ratio Ur 3.7 ug/mg cr (<30)
== END 2024-11-17 08:35 | disposition home or self-care (01) ==
LOC: HO.LAB 08:34
PROVIDERS: PCP Physician Assistant; Visit Provider Physician Assistant
DX: E10.65 Type 1 diabetes mellitus with hyperglycemia (principal); E78.00 Pure hypercholesterolemia, unspecified
CPT/HCPCS: 36415; 80053; 80061; 82043; 82570; 85027

== ENCOUNTER 2024-11-19 15:00 | Outpatient (AMB) | payer OTHER, SELFPAY ==
--- NOTE | 2024-11-19 15:06 | A.OFFPC_ITS ---
Vital Signs 3 11/19/24 15:08 Height 5 ft 3 in Weight 168 lb BMI 29.8 BP 120/80 Blood Pressure Location Lt brachial Position Sitting Pulse 82 Pulse Source Pulse Oximeter Pulse Oximetry (%) 97 Oxygen Delivery Method Room Air Intake Visit Reasons: f/u DMI Intake Note: Patient here for a follow up on DM Galvanometer Assembler Required: No Accompanied by: Self / Same As Patient Allergies No Known Allergies [No Known Allergies*] Allergy (Verified 11/19/24 15:26) Medication List - Last Reconciled 11/19/24 by Dickson Hooker PA-C acetone (urine) test (Ketone Urine Test strips) tid prn glucose over 250, nausea, vomiting or illness blood-glucose sensor (Dexcom G6 Sensor device) DIRECTED CHANGE EVERY 10 DAYS blood-glucose sensor (Dexcom G7 Sensor device) As directed every 10 days blood-glucose transmitter (Dexcom G6 Transmitter device) USE DIRECTED 1 EVERY 3 MONTHS (4 A YEAR) Dexcom G7 Pulp Screen Operator (blood-glucose meter,continuous) As directed for use with insulin pump NS docusate sodium (Colace) 100 mg PO BID 7 days glucagon 1 mg (0.2 mL) subcut ONCE PRN 30 days MDD 2 mg glucagon (Glucagon Emergency Kit) 1 mg IM Q20M PRN MDD 2 mg insulin lispro-aabc (Lyumjev U-100 Insulin) Infuse up to 100 units per day via insulin pump subcutaneously daily; Lantus Solostar U-100 Insulin (insulin glargine) 37 units (0.37 mL) subcut QAM PRN 30 days MDD 37 units NS trazodone 50 mg PO BEDTIME PRN 90 days Tobacco use date assessed: 11/19/24 Dental Screening Dental Screen Date: 11/19/24 Did you have a dental visit in the last 12 months?: Yes Did you have a dental problem in the last 6 months where you did not have access to dental care?: No Was dental information given to patient?: Patient has dentist HPI f/u DMI 2 HPI0 Details Patient is a 29-year-old male here today for a follow-up visit. Patient has a past medical history significant for type 1 diabetes, hyperlipidemia and insomnia. Concern--> reports he has been experiencing a left axillary cyst that becomes painful at times. He has had multiple cysts in his lifetime. 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 He is interested in seeing a general surgeon for surgical removal. .. Type 1 diabetes: Continues on insulin. His followed by [facility]. He now has a new insulin pump that has AI and now his type 1 diabetes is much better controlled. Otherwise reports he has been feeling well without any polydipsia, polyuria. He does report seeing an straightener hand though will call to see an wire drawer for full dilated diabetic eye exam. Of note has a history of retinal hemorrhage. .. Hyperlipidemia: Patient continues to control his hyperlipidemia with diet control. Most recent LDL at borderline at 101. . Insomnia: Has been started on trazodone which has significantly helped him with his sleep and his mood during the day Laboratory Tests 03/29/24 10/31/24 11/17/24 16:10 15:56 09:22 RBC 5.19 Fasting Glucose 102 H Hgb A1c (Clinic) 7.5 H 6.3 H AST 30 Cholesterol 162 LDL Cholesterol, C alc 101 H Urine Microalbumin 11/17/24 09:25 RBC Fasting Glucose Hgb A1c (Clinic) AST Cholesterol LDL Cholesterol, C alc Urine Microalbumin 9.0 PFSH Medical History (Updated 11/19/24 @ 15:33 by Dickson Hooker PA-C) Diabetes type 1 Asthma Diabetes mellitus type 1, uncontrolled Surgical History No history of previous surgery Family History Father Seizures Hypertension Diabetes CVD (cardiovascular disease) Mother Breast cancer Other Mental health disorder Social History Household Members: Family Housing: Apartment Do you presently have visiting nurse or other home services: No Alcohol intake: current Alcohol intake frequency: a few times a month Alcohol type: beer Patient Tobacco Use Status: Never used Tobacco e-Cigarette/Vaping Use: Never Used Second Hand Smoke Exposure: No Substance Use Type: Marijuana service: No Current occupational status: employed Current occupation: [employer] Current occupational exposures/hazards: No Cognitive needs: No Hearing needs: No Vision needs: No Questionnaire PHQ-9 Over the last 2 weeks, how often have you been bothered by any of the following problems? 1. Little interest or pleasure in doing things: not at all 2. Feeling down, depressed, or hopeless: not at all 3. Trouble falling or staying asleep, or sleeping too much: not at all 4. Feeling tired or having little energy: not at all 5. Poor appetite or overeating: not at all 6. Feeling bad about yourself - or that you are a failure or have let yourself or your family down: not at all 7. Trouble concentrating on things, such as reading the newspaper or watching television: not at all 8. Moving or speaking so slowly that other people could have noticed. Or the opposite - being so fidgety or restless that you have been moving around a lot more than usual: not at all 9. Thoughts that you would be better off or of hurting yourself in some way: not at all Total score: 0 Depression Screening Interpretation: Negative Depression Screening Done: Yes Source: Developed by Drs. Sal Ureña, Loly Nash, Elijah Del Cid and colleagues, with an educational kit from [employer]. Thrive Questionnaire Date Thrive assessed: 11/19/24 I am a: Patient What is your living situation today?: I have a steady place to live Within the past 12 months, did the food you bought not last and you didn't have the money to get more?: Never true Within the past 12 months, did you worry whether your food would run out before you got money to buy more?: Never true Do you have trouble paying for medicines?: No Do you have trouble getting transportation to medical appointments?: No Do you have trouble paying your heating and electricity bill?: No Do you have trouble taking care of your child, family member or friend?: No Do you have trouble with day-to-day activities such as bathing, preparing meals, shopping, managing finances, etc.?: No Are you currently unemployed and looking for a job?: No Are you interested in more education?: No Please select the resources that you would like help with: None Currently or been in a relationship where the following occur: No concerns reported THRIVE Score: 0 AUDIT C Alcohol Use Questionnaire (AUDIT-C) 1. How often do you have a drink containing alcohol?: 2-4 times a month 2. How many drinks containing alcohol do you have on a typical day when you are drinking?: 1 or 2 3. How often do you have six or more drinks on one occasion?: Never Total Score: 2 RAUL-7 AMB Questionnaire RAUL-7 Date RAUL - 7 assessed: 11/19/24 Feeling nervous, anxious, or on edge: 0 = Not at all Not being able to stop or control worryin = Not at all Worrying too much about different things: 0 = Not at all Trouble relaxin = Not at all Being so restless that it is hard to sit still: 0 = Not at all Becoming easily annoyed or irritable: 0 = Not at all Feeling afraid as if something awful might happen: 0 = Not at all Total RAUL-7 score (0-4 normal; 5-9 mild; 10-14 moderate; 15-21 severe): 0 Source: Developed by Drs. Sal Ureña, Loly Nash, Elijah Del Cid and colleagues, with an educational kit from [employer]. Review of Systems Const Denies headache(s) Eyes Denies loss of vision ENT Denies vertigo, Denies dizziness, Denies headache(s) and Denies sore throat Card Denies chest pain, Denies leg edema and Denies lightheadedness Resp Denies cough, Denies hemoptysis and Denies wheezing GI Denies abdominal pain, Denies melena, Denies constipation, Denies diarrhea and Denies vomiting Denies dysuria, Denies urinary frequency and Denies urinary urgency Musc Denies arthralgias, Denies joint swelling, Denies numbness and Denies tingling Neuro Denies Abnormal speech present, Denies behavioral changes, Denies vertigo, Denies dizziness, Denies headache(s), Denies loss of vision, Denies memory loss, Denies numbness and Denies tingling Psych Denies anxiety, Denies behavioral changes, Denies depression, Denies memory loss and Denies panic attacks Gael/Lymph Denies easy bleeding and Denies easy bruising Aller/Immun Denies wheezing Physical exam (Primary Care) Vital Signs: Last Vital Signs Pulse 82 11/19/24 15:08 BP 120/80 11/19/24 15:08 Pulse Ox 97 11/19/24 15:08 Oxygen Delivery Method Room Air 11/19/24 15:08 BMI result Body Mass Index 29.8 Tobacco/Smoking Status: Tobacco use Status Tobacco use date assessed 11/19/24 11/19/24 15:12 Patient Tobacco Use Status Never used Tobacco 11/19/24 15:12 e-Cigarette/Vaping Use Never Used 11/19/24 15:12 PHQ-9: PHQ-9 Score PHQ-9: Total score 0 11/19/24 15:12 Depression Screening Interpretation: Negative Thrive Assessment: Date of Thrive Assessment Date Thrive assessed 11/19/24 11/19/24 15:12 Currently or been in a relationship where the following occur: No concerns reported Const General: healthy appearing, no acute distress, alert and awake Nutritional Appearance: well nourished Orientation/consciousness: oriented to person, oriented to place and oriented to time HENMT Ears: TM's normal bilaterally General nose exam: Normal nasal mucous membranes and turbinates present Eyes Conjunctivae: conjunctivae normal Sclerae: sclerae normal Pupils: Equal, round and reactive pupils present Neck Neck: Yes no lymphadenopathy and Yes no JVD Thyroid: Thyroid normal Carotids: no bruits Chest Chest/axillae images: 2 1. CYSTIC LIKE STRUCTURE NOTED IN THE LEFT AXILLARY REGION. Resp Effort & Inspection: normal respiratory effort and not tachypneic Auscultation: no crackles, no rales, no rhonchi and no wheezes Cardio Rate: regular rate Rhythm: regular rhythm Heart sounds: no murmurs and normal S1 and S2 GI Palpation (GI): Soft to palpation, nontender, no hepatomegaly and no splenomegaly Auscultation: normal bowel sounds Skin General skin exam: no rashes or lesions noted and dry skin Neuro General: oriented to person, oriented to place and oriented to time Cranial nerves: Yes Equal, round and reactive pupils present Speech: No Abnormal speech present Gait exam (Neuro): Normal gait present Motor exam (neuro): no tremor noted Extrem Right upper extremity: full ROM Left upper extremity: full ROM Right lower extremity: full ROM; no edema Left lower extremity: full ROM; no edema Psych Mental Status: mental status grossly normal Speech and movement: Normal speech and movement present Affect: normal affect Attitude: cooperative Thought process: Normal thought process present Coding Level of Care Code Est Pt Level 4 (21092) Diagnoses Type 1 diabetes mellitus without complication E10.9 Diabetes mellitus complication status: without complication Hypercholesterolemia E78.00 Hydradenitis L73.2 Assessment & Plan Assessment & Plan (1) Diabetes type 1: Code(s): E10.9 - Type 1 diabetes mellitus without complications Category: Medical Qualifiers: Diabetes mellitus complication status: without complication Qualified Code(s): E10.9 - Type 1 diabetes mellitus without complications Plan: Patient continues to follow [facility]. He now has a new insulin pump that has helped him control his type 1 diabetes much better. Goal A1c is to remain below 7.0 (2) Hypercholesterolemia: Code(s): E78.00 - Pure hypercholesterolemia, unspecified Category: Medical Plan: Most recent lipid panel showing good control of his total cholesterol though LDL is at borderline. We considered starting statin therapy though would like to work on dietary modifications. Goal LDL to be below 100 (3) Hydradenitis: Code(s): L73.2 - Hidradenitis suppurativa Category: Medical Plan: As per HPI will set him up with general surgeon for possible surgical excision of a left axillary hidradenitis Orders: Referrals 2 General Surgery Referral L73.2 - Hidradenitis suppurativa
[2024-11-19 15:08] VITALS: BP 120/80; PULSE 82; O2SAT 97; BMI 29.8
== END 2024-11-19 15:40 | disposition home or self-care (01) ==
PROVIDERS: PCP Physician Assistant; Visit Provider Physician Assistant
DX: E10.9 Type 1 diabetes mellitus without complications (principal); E78.00 Pure hypercholesterolemia, unspecified; L73.2 Hidradenitis suppurativa

== ENCOUNTER 2024-12-20 15:33 | Outpatient (AMB) | payer BC, SELFPAY ==
--- NOTE | 2024-12-20 15:35 | A.OFFVIS_ITS ---
Vital Signs 12/20/24 15:41 Height 5 ft 3 in Weight 170 lb BMI 30.1 BP 142/75 H Blood Pressure Location Rt brachial Position Sitting Pulse 98 Intake Visit Reasons: Hidradenitis suppurativa Intake Note: Patient referred by pcp Dickson Hooker PA-C for Hidradenitis Suppurativa. Patient c/o: cyst on Lt axilla. Inflamed over the weekend. Tenderness to touch. Medical Malpractice Paralegal Required: No Accompanied by: Self / Same As Patient Allergies No Known Allergies [No Known Allergies*] Allergy (Verified 12/20/24 15:40) Medication List - Last Reconciled 12/20/24 by Yogesh Dacosta MD acetone (urine) test (Ketone Urine Test strips) tid prn glucose over 250, nausea, vomiting or illness blood-glucose sensor (Dexcom G6 Sensor device) DIRECTED CHANGE EVERY 10 DAYS blood-glucose sensor (Dexcom G7 Sensor device) As directed every 10 days blood-glucose transmitter (Dexcom G6 Transmitter device) USE DIRECTED 1 EVERY 3 MONTHS (4 A YEAR) Dexcom G7 Parts Counter Specialist (blood-glucose,inside sales associate,cont) As directed for use with insulin pump NS docusate sodium (Colace) 100 mg PO BID 7 days glucagon 1 mg (0.2 mL) subcut ONCE PRN 30 days MDD 2 mg glucagon (Glucagon Emergency Kit) 1 mg IM Q20M PRN MDD 2 mg insulin lispro-aabc (Lyumjev U-100 Insulin) Infuse up to 100 units per day via insulin pump subcutaneously daily; Lantus Solostar U-100 Insulin (insulin glargine) 37 units (0.37 mL) subcut QAM PRN 30 days MDD 37 units NS trazodone 50 mg PO BEDTIME PRN 90 days HPI HPI Hidradenitis suppurativa: Details: 29-year-old male referred for a hidradenitis suppurativa. He describes an area of recurrent redness,swelling and discharge on the left axilla. He was referred to me for excision. He says this has been going on for about a year now. He says that the area would become very uncomfortable whenever this is inflamed. He is a known diabetic. He however says that it is best sugars are well controlled. His A1c is 6.2. He has an insulin pump. He says he has a type 1 diabetes and has been diagnosed since he was 6 years old. [facility] Medical History Epidermal cyst Diabetes type 1 Asthma Diabetes mellitus type 1, uncontrolled Surgical History No history of previous surgery Family History Father Seizures Hypertension Diabetes CVD (cardiovascular disease) Mother Breast cancer Other Mental health disorder Social History Household Members: Family Housing: Apartment Do you presently have visiting nurse or other home services: No Alcohol intake: current Alcohol intake frequency: a few times a month Alcohol type: beer Patient Tobacco Use Status: Never used Tobacco e-Cigarette/Vaping Use: Never Used Second Hand Smoke Exposure: No Substance Use Type: Marijuana service: No Current occupational status: employed Current occupation: [employer] Current occupational exposures/hazards: No Cognitive needs: No Hearing needs: No Vision needs: No Review of Systems Const Denies chills and Denies fever(s) Card Denies chest pain, Denies dyspnea and Denies dyspnea on exertion Resp Denies cough, Denies dyspnea and Denies dyspnea on exertion GI Denies hematochezia and Denies change in bowel habits Denies hematuria and Denies difficulty urinating Musc Denies back pain and Denies limited range of motion Neuro Denies focal weakness and Denies convulsions Psych Denies depression and Denies mood swings Physical Exam Const General: comfortable and no acute distress Orientation/consciousness: patient oriented x3 Neck Neck: Yes no lymphadenopathy Resp Auscultation: clear to auscultation bilaterally Cardio Rhythm: regular rhythm GI Palpation (GI): Soft to palpation, nontender and no guarding Neuro General: patient oriented x3 Extrem Other: Left axilla with note of a cystic induration, about 2.5 cm x 1 cm, consistent with an epidermal cyst, non fluctuant Assessment & Plan Assessment & Plan (1) Epidermal cyst: Code(s): L72.0 - Epidermal cyst Category: Medical Plan I explained to him the technique of excision of this epidermal cyst under local anesthesia. I reviewed the risks including but not limited to bleeding, infections, poor healing, as well as the benefits and alternatives. He understands and wants to proceed. This will be done in the office on his next visit under local anesthesia. Coding Level of Care Code New Pt Level 3 (91938) Diagnoses Epidermal cyst L72.0
[2024-12-20 15:41] VITALS: BP 142/75; PULSE 98; BMI 30.1
== END 2024-12-20 15:54 | disposition home or self-care (01) ==
LOC: HO.HGS 15:34
PROVIDERS: PCP Physician Assistant; Visit Provider Surgery
DX: L72.0 Epidermal cyst (principal)
CPT/HCPCS: 99203

== ENCOUNTER → 2024-12-20 15:33 | Outpatient (BNVA) | payer BC, SELFPAY | PROVIDERS: PCP Physician Assistant; Visit Provider Surgery ==

== ENCOUNTER 2025-01-09 08:45 | Outpatient (AMB) | payer BC, SELFPAY ==
--- NOTE | 2025-01-09 09:02 | MHC.OFFVIS ---
Vital Signs 01/09/25 09:07 Height 5 ft 3 in Weight 168 lb BMI 29.8 BP 131/67 Blood Pressure Location Rt brachial Position Sitting Pulse 86 Intake Visit Reasons: excision cyst (L) axilla Intake Note: Patient here today for cyst on Lt axilla excision. 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 [facility] Medical History Epidermal cyst Diabetes type 1 Asthma Diabetes mellitus type 1, uncontrolled Surgical History No history of previous surgery Family History Father Seizures Hypertension Diabetes CVD (cardiovascular disease) Mother Breast cancer Other Mental health disorder Social History Household Members: Family Housing: Apartment Do you presently have visiting nurse or other home services: No Alcohol intake: current Alcohol intake frequency: a few times a month Alcohol type: beer Patient Tobacco Use Status: Never used Tobacco e-Cigarette/Vaping Use: Never Used Second Hand Smoke Exposure: No Substance Use Type: Marijuana service: No Current occupational status: employed Current occupation: [employer] Current occupational exposures/hazards: No Cognitive needs: No Hearing needs: No Vision needs: No Physical Exam Vital Signs: Last Vital Signs Pulse 86 01/09/25 09:07 BP 131/67 01/09/25 09:07 BMI result Body Mass Index 29.8 Office Procedures Excision Details: He was in supine position. The left arm was abducted to expose the axilla. The area of induration was seen. This measured about 1.5 by 4 cm. I infiltrated the area with lidocaine 1%. I made an elliptical incision with a blade 15. This carried down through the full-thickness of the skin and subcutaneous fat to excise this entire indurated area. This was sent as specimen. I closed the incision with full-thickness nylon 3-0 simple interrupted sutures. Dressings were applied. The procedure was completed. He tolerated the procedure well. There were no immediate complications He was given wound care instructions. 69795-nsoei/arms/legs 3.1-4cm Procedure code (CPT) selection complete Assessment & Plan Assessment & Plan (1) Epidermal cyst: Code(s): L72.0 - Epidermal cyst Category: Medical Plan: Excision done under local anesthesia. He tolerated procedure well. He was given wound care instructions. I will see him for a follow-up for removal sutures. Coding Level of Care Code Procedure Only Diagnoses Epidermal cyst L72.0 CPT Codes Trunk/Arms/Legs - CPT: 62700-sxurz/arms/legs 3.1-4cm ([id number])
[2025-01-09 09:07] VITALS: BP 131/67; PULSE 86; BMI 29.8
== END 2025-01-09 09:48 | disposition home or self-care (01) ==
LOC: HO.HGS 08:46
PROVIDERS: PCP Physician Assistant; Visit Provider Surgery
DX: L72.0 Epidermal cyst (principal)
CPT/HCPCS: 11404

== ENCOUNTER 2025-01-09 08:45 | Outpatient (REF) | payer BC, SELFPAY | END 2025-01-09 08:46 | disposition home or self-care (01) | LOC: HO.LNP 08:45 | PROVIDERS: PCP Physician Assistant; Visit Provider Surgery | DX: L72.0 Epidermal cyst (principal) | CPT/HCPCS: 11404; 88304 ==

== ENCOUNTER 2025-01-24 15:17 | Outpatient (AMB) | payer BC, SELFPAY ==
--- NOTE | 2025-01-24 15:19 | A.OFFVIS_ITS ---
Vital Signs 01/24/25 15:22 Height 5 ft 3 in Weight 168 lb BMI 29.8 BP 130/68 Blood Pressure Location Rt brachial Position Sitting Pulse 92 Intake Visit Reasons: s/p excsion cyst (L) axilla Intake Note: Patient here s/p cyst excision on Lt axilla. Patient c/o: incision site red, inflamed along sutures, developed crust along incision scar. Tender to touch. Still feels uncomfortable to lift arm above head. 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 He tolerated procedure well. He currently denies significant complaints. [facility] Medical History Epidermal cyst Diabetes type 1 Asthma Diabetes mellitus type 1, uncontrolled Surgical History No history of previous surgery Family History Father Seizures Hypertension Diabetes CVD (cardiovascular disease) Mother Breast cancer Other Mental health disorder Social History Household Members: Family Housing: Apartment Do you presently have visiting nurse or other home services: No Alcohol intake: current Alcohol intake frequency: a few times a month Alcohol type: beer Patient Tobacco Use Status: Never used Tobacco e-Cigarette/Vaping Use: Never Used Second Hand Smoke Exposure: No Substance Use Type: Marijuana service: No Current occupational status: employed Current occupation: [employer] Current occupational exposures/hazards: No Cognitive needs: No Hearing needs: No Vision needs: No Review of Systems Const Denies chills and Denies fever(s) Physical Exam Vital Signs: Last Vital Signs Pulse 92 01/24/25 15:22 BP 130/68 01/24/25 15:22 BMI result Body Mass Index 29.8 Const General: comfortable and no acute distress Skin Other: Excision site is well healed, not infected, sutures intact Assessment & Plan Assessment & Plan (1) Epidermal cyst: Code(s): L72.0 - Epidermal cyst Category: Medical Plan: Status post excision. His path report shows a ruptured epidermal cyst. I removed all his sutures. The wound edges remained well apposed. He can follow up on a p.r.n. basis. Coding Level of Care Code Global (64207) Diagnoses Epidermal cyst L72.0
[2025-01-24 15:22] VITALS: BP 130/68; PULSE 92; BMI 29.8
== END 2025-01-24 15:56 | disposition home or self-care (01) ==
LOC: HO.HGS 15:18
PROVIDERS: PCP Physician Assistant; Visit Provider Surgery
DX: L72.0 Epidermal cyst (principal)
CPT/HCPCS: 99024

== ENCOUNTER 2025-01-30 16:04 | Outpatient (AMB) | payer BC, SELFPAY ==
--- NOTE | 2025-01-30 11:01 | A.OFFVIS_ITS ---
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 A1c in the office 01/31/2020 5%, previous visit 6.3%. He is consistently getting good numbers on the pump. He transitioned to an ilet insulin pump 2023 Dexcom average glucose: [ ] 14 day continuous glucose monitor report reviewed Glucose Managment indicator [ ] % Days with CGM data [ ] % TIme in ranges: [ ] % very high (above 250) [ ] % high ?(181-250) [ ] % in range ?(70-180] [ ] % low (69-55) [ ] % ?very low (below 54) [ ] Standard Deviation Interpretation [ ] Backup insulin pump plan Lantus 37 units Has retinopathy: last eye exam 10/2024 has stable retinopathy x 3 years has appt in one year No neuropathy denies numbness tingling pain or cramping in lower extremities does not see podiatry No nephropathy eGFR>60 microalbumin 11/2024 9.0 PFSH Medical History Epidermal cyst Diabetes type 1 Asthma Diabetes mellitus type 1, uncontrolled Surgical History No history of previous surgery Family History Father Seizures Hypertension Diabetes CVD (cardiovascular disease) Mother Breast cancer Other Mental health disorder Social History Household Members: Family Housing: Apartment Do you presently have visiting nurse or other home services: No Alcohol intake: current Alcohol intake frequency: a few times a month Alcohol type: beer Patient Tobacco Use Status: Never used Tobacco e-Cigarette/Vaping Use: Never Used Second Hand Smoke Exposure: No Substance Use Type: Marijuana service: No Current occupational status: employed Current occupation: [employer] Current occupational exposures/hazards: No Cognitive needs: No Hearing needs: No Vision needs: No Physical Exam Vital Signs: Last Vital Signs Pulse 80 01/30/25 16:07 BP 124/68 01/30/25 16:07 Pulse Ox 99 01/30/25 16:07 Oxygen Delivery Method Room Air 01/30/25 16:07 BMI result Body Mass Index 29.7 Results AMB Hemoglobin A1c AMB Hemoglobin A1c 6.9 % Last Edit by JOSH Best on 01/30/25 16:27 Results Reviewed Results Reviewed: Laboratory Last Values Glucose (Clinic) 168 mg/dL (60-115) H 01/30/25 16:14 Assessment & Plan Assessment & Plan Orders: Orders AMB Hemoglobin A1c Today E10.9 - Type 1 diabetes mellitus without complications Coding
[2025-01-30 16:07] VITALS: BP 124/68; PULSE 80; O2SAT 99; BMI 29.7
[2025-01-30 16:21] LABS: Glucose, Whole Blood 168 mg/dL (60-115)
== END 2025-01-30 16:36 | disposition home or self-care (01) ==
LOC: HO.ENCR 16:05
PROVIDERS: PCP Physician Assistant; Visit Provider Nurse Practitioner Adult Health
DX: E10.9 Type 1 diabetes mellitus without complications (principal)

== ENCOUNTER → 2025-01-30 16:04 | Outpatient (BNVA) | payer BC, SELFPAY | PROVIDERS: PCP Physician Assistant; Visit Provider Nurse Practitioner Adult Health | DX: E10.9 Type 1 diabetes mellitus without complications (principal) | CPT/HCPCS: 82947; 83036 ==

== ENCOUNTER 2025-04-23 15:54 | Outpatient (AMB) | payer BC, SELFPAY ==
--- NOTE | 2025-04-23 16:00 | MHC.AMDMED ---
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 Accompanied by: Self / Same As Patient Allergies No Known Allergies (No Known Allergies*) Allergy (Verified 01/30/25 16:08) HPI Comprehensive Diabetes Asmnt Most Recent Diabetes Results: Microalb/Creat Ratio, (<30) 3.7 ug/mg cr 11/17/24 Cholesterol, (<200) 162 mg/dL 11/17/24 HDL Cholesterol, (>40) 48 mg/dL 11/17/24 Triglycerides, (<150) 68 mg/dL 11/17/24 Creatinine, (0.5-1.4) 0.89 mg/dL 11/17/24 BUN, (9-16) 15 mg/dL 11/17/24 Sodium, (135-145) 140 mmol/L 11/17/24 Potassium, (3.3-5.1) 4.1 mmol/L 11/17/24 Chloride, (96-108) 107 mmol/L 11/17/24 Carbon Dioxide, (22-29) 25 mmol/L 11/17/24 Calcium, (8.4-10.2) 8.9 mg/dL Δ 11/17/24 AST, (5-37) 30 U/L 11/17/24 ALT, (0-40) 52 U/L H 11/17/24 Total Protein, (6.5-8.0) 7.8 g/dL 11/17/24 Albumin, (3.5-5.0) 4.2 g/dL 11/17/24 [facility] Medical History (Updated 03/07/25 @ 13:49 by Dee Tejeda NP) Epidermal cyst Diabetes type 1 Asthma Surgical History No history of previous surgery Family History Father Seizures Hypertension Diabetes CVD (cardiovascular disease) Mother Breast cancer Other Mental health disorder Social History Household Members: Family Housing: Apartment Do you presently have visiting nurse or other home services: No Alcohol intake: current Alcohol intake frequency: a few times a month Alcohol type: beer Patient Tobacco Use Status: Never used Tobacco e-Cigarette/Vaping Use: Never Used Second Hand Smoke Exposure: No Substance Use Type: Marijuana service: No Current occupational status: employed Current occupation: [employer] Current occupational exposures/hazards: No Cognitive needs: No Hearing needs: No Vision needs: No Assessment & Plan Assessment & Plan (1) Diabetes type 1: Comment: on an ilet insulin pump Code(s): E10.9 - Type 1 diabetes mellitus without complications Qualifiers: Diabetes mellitus complication status: without complication Qualified Code(s): E10.9 - Type 1 diabetes mellitus without complications Plan: Patient presents for pump training for iLet pump and CGM training today. The following topics were reviewed today: -Pump therapy basic concepts: Basal/bolus -For most effective glucose control bolus prior to meals - Off pump backup insulin plan iLet Alerts: ??? High Alert: 300 mg/dl ??? Low Alert: 75 mg/dl Patient reports being satisfied with overall glucose control, A1c in January 2025 6.9% Patient has upcoming appointment with Dr. Barbosa on 04/30/2025 he will be due for A1c at that appointment. Patient reports he was on vacation last week is so he did experience some hyperglycemia. Denies bolusing for meals when just trying to correct high glucose levels. Reviewed with patient how to calculate correction with sensitivity factor if he needs to come off pump and do manual injection Patient reports he has ketone strips at home He was unable to afford co-pay for glucagon Reviewed Safety information: Importance of a backup plan, for manual injections, proper prescriptions and emergency supplies ketone strips, and rules for testing for ketones Patient understands the basic concepts of pump therapy, how to give insulin for meals and snacks, how to troubleshoot for hyper and hypoglycemia. Patient will follow up with [facility] as instructed Patient will contact [facility] with questions or concerns, patient given IT number to support in any technical issues related to insulin pump Portions of this note were created using voice recognition software, please excuse any words or phrases that may have been misinterpreted. Patient Instructions: DIABETES PROBLEMS HOMECARE INSTRUCTIONS? for High Blood Sugar and When to Test for Ketones Hyperglycemia is the technical term for high blood glucose (blood sugar). High blood sugar happens when the body has too little insulin or when the body can't use insulin properly. What causes hyperglycemia? A number of things can cause hyperglycemia: If you have type 1, you may not have given yourself enough insulin. ? If you have type 2, your body may have enough insulin, but it is not as effective as it should be. You ate more than planned or exercised less than planned. You have stress from an illness, such as a cold or flu. You have other stress, such as family conflicts or school or dating problems. How to lower your blood sugar level. ? Take medications as directed by physician. ? Drink extra water or noncaffeinated, nonsugared drinks to prevented hydration. ? Exercise if you are not sick However, if your blood sugar is above 250 mg/dl, check your urine for ketones. If you have ketones, do not exercise Exercising when ketones are present may make your blood sugar level go even higher. You'll need to work with your doctor to find the safest way for you to lower your blood sugar level. Regularly check blood sugar or urine for sugar and acetone during illness. Diabetic ketoacidosis (DKA) Is serious condition that can lead to diabetic coma (passing out for a long time) or even . When your cells don't get the glucose they need for energy, your body begins to burn fat for energy, which produces ketones. Ketones are chemicals that the body creates when it breaks down fat to use for energy. The body does this when it doesn?t have enough insulin to use glucose, the body?s normal source of energy. When ketones build up in the blood, they make it more acidic. They are a warning sign that your diabetes is out of control or that you are getting sick. Symptoms of Diabetic Ketoacidosis (DKA) ? DKA usually develops slowly. But when vomiting occurs, this life-threatening condition can develop in a few hours. Early symptoms include the following: ? Thirst or a very dry mouth ? Frequent urination ? High blood glucose (blood sugar) levels ? High levels of ketones in the urine ? Then, other symptoms appear: ? Constantly feeling tired ? Dry or flushed skin ? Nausea, vomiting, or abdominal pain ? (Vomiting can be caused by many illnesses, not just ketoacidosis. If vomiting continues for more than 2 hours, contact your health care provider.) ? Difficulty breathing ? Fruity odor on breath ? A hard time paying attention, or confusion When should you test for ketones? It is advisable to check for ketones under the following conditions when: Your blood glucose is higher than 250mg/dl. Feeling nauseated, throwing up, or have pains in your abdominal region. Have a cold or flu. Have general body fatigue. Feel thirsty or have a very dry mouth. Have flushed skin. Have a fruity breath or a hard time breathing. You feel perplexed or in fog. How to Test Urine for Ketones You can detect ketones with a simple urine test using a test strip, similar to a blood testing strip. Ask your health care provider when and how you should test for ketones. Many experts advise to check your urine for ketones when your blood glucose is more than 250 mg/dl. When you are ill (when you have a cold or the flu, for example), check for ketones every 4 to 6 hours. And check every 4 to 6 hours when your blood sugar is more than 250 mg/dl. Also, check for ketones when you have any symptoms of DKA. How to lower your blood sugar level. ? Take medications as directed by physician. ? Drink extra water or noncaffeinated, nonsugared drinks to prevented hydration. ? Exercise if you are not sick However, if your blood sugar is above 250 mg/dl, check your urine for ketones. If you have ketones, do not exercise Exercising when ketones are present may make your blood sugar level go even higher. You'll need to work with your doctor to find the safest way for you to lower your blood sugar level. Regularly check blood sugar or urine for sugar and acetone during illness Coding Level of Care Code Est Pt Level 1 (67079) Diagnoses Type 1 diabetes mellitus without complication E10.9 Diabetes mellitus complication status: without complication
== END 2025-04-23 16:16 | disposition home or self-care (01) ==
LOC: HO.ENCR 15:55
PROVIDERS: PCP Physician Assistant; Visit Provider Registered Nurse Diabetes Educator
DX: E10.9 Type 1 diabetes mellitus without complications (principal)
CPT/HCPCS: 99211

== ENCOUNTER 2025-05-28 15:06 | Outpatient (AMB) | payer BC, SELFPAY ==
--- NOTE | 2025-05-28 15:10 | MHC.PC.OV ---
Vital Signs 05/28/25 15:11 Height 5 ft 3 in Weight 166 lb 4 oz BMI 29.4 BP 120/60 Blood Pressure Location Lt brachial Position Sitting Pulse 82 Pulse Source Pulse Oximeter Temp 97.5 F Temp Source Temporal Artery Scan Pulse Oximetry (%) 97 Oxygen Delivery Method Room Air Intake Visit Reasons: Annual exam Intake Note: Patient is here today for a physical. French Weaver Required: No Sewing Machine Operator Paper Bags: Not Required per policy Accompanied by: Self / Same As Patient Allergies No Known Allergies (No Known Allergies*) Allergy (Verified 05/28/25 15:57) Medication List - Last Reconciled 05/28/25 by Dickson Hooker PA-C acetone (urine) test (Ketone Urine Test strips) tid prn glucose over 250, nausea, vomiting or illness blood-glucose sensor (Dexcom G7 Sensor device) As directed every 10 days Dexcom G7 Baggage Agent (blood-glucose,business systems consultant,cont) As directed for use with insulin pump NS docusate sodium (Colace) 100 mg PO BID 7 days glucagon 1 mg (0.2 mL) subcut ONCE PRN 30 days MDD 2 mg glucagon (Glucagon Emergency Kit) 1 mg IM Q20M PRN MDD 2 mg insulin lispro-aabc (Lyumjev U-100 Insulin) Diffuse up to 100 units per day via insulin pump daily subcutaneously daily; insulin syringe,safety needle (BD SafetyGlide Insulin Syringe) As directed to inject insulin 3 times a day in case of pump failure trazodone 50 mg PO BEDTIME PRN 90 days Tobacco use date assessed: 05/28/25 Dental Screening Dental Screen Date: 11/19/24 HPI Annual exam HPI Details Patient is a 29-year-old male here today for a routine annual physical Patient has a past medical history significant for type 1 diabetes, hyperlipidemia and insomnia. .. Type 1 diabetes: Continues on insulin. Today's A1c is 6.7. His followed by [facility]. He now has a new insulin pump that has AI and now his type 1 diabetes is much better controlled. Otherwise reports he has been feeling well without any polydipsia, polyuria. He does report seeing an bag mender though will call to see an suture gauger for full dilated diabetic eye exam. Of note has a history of retinal hemorrhage. .. Hyperlipidemia: Patient continues to control his hyperlipidemia with diet control. Most recent LDL at borderline at 101. . Insomnia: Has been started on trazodone which has significantly helped him with his sleep and his mood during the day Laboratory Tests 01/30/25 05/28/25 16:22 15:09 Hgb A1c (Clinic) 6.9 H 6.7 H PFSH Medical History Epidermal cyst Diabetes type 1 Asthma Surgical History History of cystostomy No history of previous surgery Family History Father Seizures Hypertension Diabetes CVD (cardiovascular disease) Mother Breast cancer Other Mental health disorder Social History Household Members: Family Housing: Apartment Do you presently have visiting nurse or other home services: No Alcohol intake: current Alcohol intake frequency: a few times a month Alcohol type: beer Patient Tobacco Use Status: Never used Tobacco e-Cigarette/Vaping Use: Never Used Second Hand Smoke Exposure: No Substance Use Type: Marijuana service: No Current occupational status: employed Current occupation: [employer] Current occupational exposures/hazards: No Cognitive needs: No Hearing needs: No Vision needs: No Questionnaire PHQ-9 Over the last 2 weeks, how often have you been bothered by any of the following problems? 1. Little interest or pleasure in doing things: not at all 2. Feeling down, depressed, or hopeless: not at all 3. Trouble falling or staying asleep, or sleeping too much: not at all 4. Feeling tired or having little energy: not at all 5. Poor appetite or overeating: not at all 6. Feeling bad about yourself - or that you are a failure or have let yourself or your family down: not at all 7. Trouble concentrating on things, such as reading the newspaper or watching television: not at all 8. Moving or speaking so slowly that other people could have noticed. Or the opposite - being so fidgety or restless that you have been moving around a lot more than usual: not at all 9. Thoughts that you would be better off or of hurting yourself in some way: not at all Total score: 0 Depression Screening Interpretation: Negative Depression Screening Done: Yes [id number] - PHQ-9 Billing: Yes Source: Developed by Drs. Sal Ureña, Loly Nash, Elijah Del Cid and colleagues, with an educational kit from [employer]. Thrive Questionnaire Date Thrive assessed: 11/19/24 I am a: Patient What is your living situation today?: I have a steady place to live Within the past 12 months, did the food you bought not last and you didn't have the money to get more?: Never true Within the past 12 months, did you worry whether your food would run out before you got money to buy more?: Never true Do you have trouble paying for medicines?: No Do you have trouble getting transportation to medical appointments?: No Do you have trouble paying your heating and electricity bill?: No Do you have trouble taking care of your child, family member or friend?: No Do you have trouble with day-to-day activities such as bathing, preparing meals, shopping, managing finances, etc.?: No Are you currently unemployed and looking for a job?: No Are you interested in more education?: No Please select the resources that you would like help with: None Currently or been in a relationship where the following occur: No concerns reported THRIVE Score: 0 AUDIT C Alcohol Use Questionnaire (AUDIT-C) 1. How often do you have a drink containing alcohol?: Monthly or less 2. How many drinks containing alcohol do you have on a typical day when you are drinking?: 1 or 2 3. How often do you have six or more drinks on one occasion?: Never Total Score: 1 RAUL-7 AMB Questionnaire RAUL-7 Date RAUL - 7 assessed: 11/19/24 Feeling nervous, anxious, or on edge: 0 = Not at all Not being able to stop or control worryin = Not at all Worrying too much about different things: 0 = Not at all Trouble relaxin = Not at all Being so restless that it is hard to sit still: 0 = Not at all Becoming easily annoyed or irritable: 0 = Not at all Feeling afraid as if something awful might happen: 0 = Not at all Total RAUL-7 score (0-4 normal; 5-9 mild; 10-14 moderate; 15-21 severe): 0 Source: Developed by Drs. Sal Ureña, Loyl Nash, Elijah Del Cid and colleagues, with an educational kit from [employer]. RAUL-7 Assessment Billing RAUL-7 Assessment Tool: RAUL-7 Assessment 41440 Review of Systems Const Denies body aches, Denies chills, Denies excessive sweating, Denies fatigue, Denies fever(s) and Denies headache(s) Eyes Denies blurry vision ENT Denies dysphagia, Denies vertigo, Denies dizziness, Denies headache(s), Denies hearing loss and Denies tinnitus Card Denies chest pain, Denies chest pain with activity, Denies syncope, Denies irregular heart rhythm and Denies dyspnea Resp Denies chest congestion, Denies cough, Denies hemoptysis, Denies dyspnea and Denies wheezing GI Denies abdominal pain, Denies melena, Denies hematochezia, Denies coffee ground emesis, Denies dysphagia, Denies diarrhea, Denies nausea and Denies vomiting Denies difficulty urinating, Denies dysuria, Denies urinary frequency, Denies urinary hesitancy and Denies urinary urgency Musc Denies arthralgias, Denies limited range of motion, Denies muscle cramps and Denies muscle weakness Skin/Breast Denies rash and Denies skin ulcer Neuro Denies Abnormal speech present, Denies confusion, Denies vertigo, Denies dizziness, Denies syncope, Denies headache(s), Denies memory loss and Denies seizure-like activity Psych Denies anxiety, Denies confusion, Denies depression, Denies memory loss, Denies panic attacks and Denies paranoia Endo Denies excessive sweating, Denies fatigue, Denies flushing, Denies polydipsia and Denies polyuria Aller/Immun Denies wheezing Physical exam (Primary Care) Vital Signs: Last Vital Signs Temp 97.5 F 05/28/25 15:11 Pulse 82 05/28/25 15:11 BP 120/60 05/28/25 15:11 Pulse Ox 97 05/28/25 15:11 Oxygen Delivery Method Room Air 05/28/25 15:11 BMI result Body Mass Index 29.4 Tobacco/Smoking Status: Tobacco use Status Tobacco use date assessed 05/28/25 05/28/25 15:11 Patient Tobacco Use Status Never used Tobacco 05/28/25 15:11 e-Cigarette/Vaping Use Never Used 05/28/25 15:11 PHQ-9: PHQ-9 Score PHQ-9: Total score 0 05/28/25 16:00 Depression Screening Interpretation: Negative Thrive Assessment: Date of Thrive Assessment Date Thrive assessed 11/19/24 05/28/25 15:11 Currently or been in a relationship where the following occur: No concerns reported Const General: cooperative, comfortable, no acute distress, alert and awake; No confusion Orientation/consciousness: oriented to person, oriented to place, patient oriented x3 and No confusion HENMT Head: Yes normocephalic Ears: external ears normal and TM's normal bilaterally Face and sinus: No sinus tenderness Mouth: Normal oral and palatal mucosa present and tongue normal Teeth and gingiva: dentition normal and gingiva normal Throat: Yes posterior oropharynx normal, Yes tonsils normal and Yes uvula midline Eyes Conjunctivae: conjunctivae normal Sclerae: sclerae normal Pupils: Equal, round and reactive pupils present EOM: EOMs intact bilaterally Direct Ophthalmoscopy: No no photophobia Neck Neck: Yes no lymphadenopathy, No tender and Yes no JVD Thyroid: Thyroid normal Carotids: no bruits Chest Chest palpation & inspection: no tenderness Resp Effort & Inspection: normal respiratory effort, no audible wheezes, not labored and no stridor Auscultation: no crackles, no rales, no rhonchi and no wheezes Cardio Jugular venous distension: no JVD Rate: regular rate, not bradycardic and not tachycardic Rhythm: regular rhythm Bruits: no carotid bruits Peripheral pulses: Peripheral pulses 2+ throughout GI Inspection: Yes normal to inspection, No abdominal wall ecchymosis and No visible herniation Palpation (GI): Soft to palpation, nontender, no guarding, not rigid and No hepatosplenomegaly present Auscultation: normoactive bowel sounds General: Yes no CVA tenderness Back/Spine/Pelvis Back: no CVA tenderness and No back tenderness Cervical Spine: cervical ROM normal Thoracic/Lumbar Spine: thoracic and lumbar spine normal to inspection, straight leg raise negative bilaterally, No thoraco-lumbar ROM limited and No lumbar spinal tenderness Skin Lesions: no lesions Rashes: no rashes Wounds: no wounds Neuro General: oriented to person, oriented to place, patient oriented x3, CN's II-XI intact bilaterally and No confusion Cranial nerves: Yes Equal, round and reactive pupils present and Yes Normal accommodation reflex present Cognition (Neuro): normal cognition Speech: No Abnormal speech present Gait exam (Neuro): Normal gait present Motor exam (neuro): 5/5 motor strength present throughout Extrem Right upper extremity: full ROM; no cyanosis Left upper extremity: full ROM; no cyanosis Right lower extremity: no edema Left lower extremity: no edema Psych Appearance: grossly normal Mental Status: mental status grossly normal Affect: normal affect Attitude: cooperative Thought process: Normal thought process present Results AMB Hemoglobin A1c AMB Hemoglobin A1c 6.7 % Last Edit by JOSH Marley on 05/28/25 15:35 Results Reviewed Results Reviewed: Laboratory Last Values Hgb A1c (Clinic) 6.7 % (4.0-6.0) H 05/28/25 15:09 Coding Level of Care Code Est Pt Prev Care 18-39y(10254) Diagnoses Annual physical exam Z00.00 Type 1 diabetes mellitus without complication E10.9 Diabetes mellitus complication status: without complication Hypercholesterolemia E78.00 Hydradenitis L73.2 Primary insomnia F51.01 Insomnia type: primary Additional Codes PHQ-9 - 00685 - PHQ-9 Billing: Yes ([id number]) RAUL-7 Assessment Billing - RAUL-7 Assessment Tool: RAUL-7 Assessment 31961 ([id number]) Assessment & Plan Assessment & Plan (1) Annual physical exam: Code(s): Z00.00 - Encounter for general adult medical examination without abnormal findings Category: Medical Plan: As per HPI (2) Diabetes type 1: Comment: on an ilet insulin pump Code(s): E10.9 - Type 1 diabetes mellitus without complications Category: Medical Qualifiers: Diabetes mellitus complication status: without complication Qualified Code(s): E10.9 - Type 1 diabetes mellitus without complications Plan: Patient continues to follow [facility]. He now has a new insulin pump that has helped him control his type 1 diabetes much better. Goal A1c is to remain below 7.0 (3) Hypercholesterolemia: Code(s): E78.00 - Pure hypercholesterolemia, unspecified Category: Medical Plan: Most recent lipid panel showing good control of his total cholesterol though LDL is at borderline. We considered starting statin therapy though would like to work on dietary modifications. Goal LDL to be below 100 (4) Hydradenitis: Code(s): L73.2 - Hidradenitis suppurativa Category: Medical Plan: Has underwent surgical excision with 3rd annual surgeon though unfortunately since came back. For now he would like to hold off on any other treatment. We did discuss perhaps dermatology referral for disease modifying drug treatment. (5) Insomnia: Code(s): G47.00 - Insomnia, unspecified Category: Medical Qualifiers: Insomnia type: primary Qualified Code(s): F51.01 - Primary insomnia Plan: The patient uses a sleeping pill but wishes to discontinue due to withdrawal symptoms experienced when not taking it. A tapering strategy by using half a tablet was suggested to mitigate withdrawal effects. Orders: Orders AMB Hemoglobin A1c 05/28/25 E10.9 - Type 1 diabetes mellitus without complications, Z13.9 - Encounter for screening, unspecified Lipid Panel 05/28/25 E78.00 - Pure hypercholesterolemia, unspecified Complete Blood Count no Diff 05/28/25 E10.9 - Type 1 diabetes mellitus without complications Comprehensive [place]. Panel Fast 05/28/25 E10.9 - Type 1 diabetes mellitus without complications Medications: Refilled trazodone 50 mg PO BEDTIME PRN 90 tabs 2RF sleep 90 days G47.00 - Insomnia, unspecified
[2025-05-28 15:11] VITALS: BP 120/60; PULSE 82; TEMP 36.4; O2SAT 97; BMI 29.4
== END 2025-05-28 16:26 | disposition home or self-care (01) ==
LOC: HO.HMCH 15:07
PROVIDERS: PCP Physician Assistant; Visit Provider Physician Assistant
DX: Z00.00 Encounter for general adult medical examination without abnormal findings (principal); E10.9 Type 1 diabetes mellitus without complications; E78.00 Pure hypercholesterolemia, unspecified; L73.2 Hidradenitis suppurativa; F51.01 Primary insomnia

== ENCOUNTER → 2025-05-28 15:06 | Outpatient (BNVA) | payer BC, SELFPAY | PROVIDERS: PCP Physician Assistant; Visit Provider Physician Assistant | DX: Z00.00 Encounter for general adult medical examination without abnormal findings (principal); E10.9 Type 1 diabetes mellitus without complications; E78.00 Pure hypercholesterolemia, unspecified; G47.00 Insomnia, unspecified; L73.2 Hidradenitis suppurativa; F51.01 Primary insomnia | CPT/HCPCS: 83036; 96127 ==

== ENCOUNTER 2025-06-19 15:05 | Outpatient (AMB) | payer BC, SELFPAY ==
--- NOTE | 2025-06-19 15:15 | MHC.OFFVIS ---
Vital Signs 06/19/25 15:18 Height 5 ft 3 in Weight 166 lb 0.129 oz BMI 29.4 BP 112/62 Blood Pressure Location Lt brachial Position Sitting Pulse 91 Pulse Source Pulse Oximeter Pulse Oximetry (%) 98 Oxygen Delivery Method Room Air Intake Visit Reasons: T1DM Intake Note: Patient presents today for a follow-up on Type 1 Diabetes Mellitus/Patient on Insulin Pump: Last Diabetic eye exam was on: December 03, 2024 Last Podiatry exam was on: Patient does not see a Historic Interpreter Most recent HbA1c: 6.7%,? 05/28/2025 Random Glucose-? mg/dL, Today Allergies No Known Allergies (No Known Allergies*) Allergy (Verified 06/19/25 15:25) Medication List - Last Reconciled 06/19/25 by aSl Couch MD acetone (urine) test (Ketone Urine Test strips) tid prn glucose over 250, nausea, vomiting or illness blood-glucose sensor (Dexcom G7 Sensor device) As directed every 10 days Dexcom G7 Commercial Lease Administrator (blood-glucose,agriscience instructor,cont) As directed for use with insulin pump NS docusate sodium (Colace) 100 mg PO BID 7 days glucagon 1 mg (0.2 mL) subcut ONCE PRN 30 days MDD 2 mg glucagon (Glucagon Emergency Kit) 1 mg IM Q20M PRN MDD 2 mg insulin lispro-aabc (Lyumjev U-100 Insulin) Diffuse up to 100 units per day via insulin pump daily subcutaneously daily; insulin syringe,safety needle (BD SafetyGlide Insulin Syringe) As directed to inject insulin 3 times a day in case of pump failure trazodone 50 mg PO BEDTIME PRN 90 days HPI Comments Details: 30-year-old type 1 diabetic diagnosed at age 6 when he presented to the ER in DKA on an islet insulin pump. Patient last saw Dee Shafer NP on 01/30/25 Dexcom average glucose: 177 14 day continuous glucose monitor report reviewed Glucose Managment indicator 7.5 % Days with CGM data 91.9 % TIme in ranges: 9.9 % very high (above 250) 31.7 % high ?(181-250) 57.8 % in range ?(70-180] 0.5 % low (69-55) 0 % ?very low (below 54) 54.7 % Standard Deviation Interpretation well-controlled diabetes some postprandial excursions when he had a large carb meal which she reported to the pump as large. Announcing meal sometimes after eating Total daily dose of insulin 95 basal 36 Bolus 8.3 on average for breakfast 15.1 for lunch and 12.5 for supper Backup insulin pump plan Lantus 37 units Had retinopathy with blled last eye examination 12/04 No neuropathy denies numbness tingling pain or cramping in lower extremities does not see podiatry No nephropathy eGFR>60 PFSH Medical History Epidermal cyst Diabetes type 1 Asthma Surgical History History of cystostomy No history of previous surgery Family History Father Seizures Hypertension Diabetes CVD (cardiovascular disease) Mother Breast cancer Other Mental health disorder Social History Household Members: Family Housing: Apartment Do you presently have visiting nurse or other home services: No Alcohol intake: current Alcohol intake frequency: a few times a month Alcohol type: beer Patient Tobacco Use Status: Never used Tobacco e-Cigarette/Vaping Use: Never Used Second Hand Smoke Exposure: No Substance Use Type: Marijuana service: No Current occupational status: employed Current occupation: [employer] Current occupational exposures/hazards: No Cognitive needs: No Hearing needs: No Vision needs: No Physical Exam Vital Signs: Last Vital Signs Pulse 91 06/19/25 15:18 BP 112/62 06/19/25 15:18 Pulse Ox 98 06/19/25 15:18 Oxygen Delivery Method Room Air 06/19/25 15:18 BMI result Body Mass Index 29.4 Results Reviewed Results Reviewed: Laboratory Last Values Glucose (Clinic) 182 mg/dL (60-115) H 06/19/25 15:27 Assessment & Plan Assessment & Plan (1) Diabetes mellitus type 1, uncontrolled: Code(s): E10.65 - Type 1 diabetes mellitus with hyperglycemia Category: Medical Qualifiers: Glycemic state: with hyperglycemia Qualified Code(s): E10.65 - Type 1 diabetes mellitus with hyperglycemia Plan: This 27-year-old male with a history of type 1 diabetes being treated with insulin pump iLet with excellent glycemic control and no known microvascular or macrovascular complications Plan is have the patient bolus prior to meals. He will work on doing this. However has control is overall excellent I will have him follow-up with the senior health educator Coding Level of Care Code Est Pt Level 4 (26293) Complex EM visit Add On G2211 Diagnoses Uncontrolled type 1 diabetes mellitus with hyperglycemia E10.65 Glycemic state: with hyperglycemia
[2025-06-19 15:18] VITALS: BP 112/62; PULSE 91; O2SAT 98; BMI 29.4
[2025-06-19 15:34] LABS: Glucose, Whole Blood 182 mg/dL (60-115)
== END 2025-06-19 15:59 | disposition home or self-care (01) ==
LOC: HO.ENCR 15:05
PROVIDERS: PCP Physician Assistant; Visit Provider Internal Medicine Endocrinology, Diabetes & Metabolism
DX: E10.65 Type 1 diabetes mellitus with hyperglycemia (principal)
CPT/HCPCS: 99214

== ENCOUNTER → 2025-06-19 15:05 | Outpatient (BNVA) | payer BC, SELFPAY | PROVIDERS: PCP Physician Assistant; Visit Provider Internal Medicine Endocrinology, Diabetes & Metabolism | DX: E10.65 Type 1 diabetes mellitus with hyperglycemia (principal) | CPT/HCPCS: 82947 ==